=== PATIENT | female | born 2000 | race Caucasian/White ===

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

== ENCOUNTER 2021-12-31 20:25 | Outpatient (CLI) | payer OTHER, SELFPAY ==
[2021-12-31 20:41] VITALS: BMI 31.7
[2021-12-31 20:43] VITALS: PULSE 118; TEMP 36.8; O2SAT 98
[2021-12-31 20:49] VITALS: BP 120/73; PULSE 113; O2SAT 99
[2021-12-31 20:53] VITALS: BP 126/71; PULSE 112
[2021-12-31 20:54] VITALS: PULSE 115; O2SAT 99
[2021-12-31 20:59] VITALS: PULSE 114; O2SAT 99
--- NOTE | 2022-01-13 08:52 | OB.TRI.NOTE ---
HPI - General General Date of Admission: 12/31/21 Date of Service: 12/31/21 Chief Complaint: calf pain HPI Narrative IRON SOLIS, is a 21 F who presents Maternal Data Information Final DARINEL: [birth year] Gestational age: 35 1/7 PFSH PFSH Home Medications Albuterol Sulfate [Proair Hfa] 1 inhaler PO PRN PRN Asthma 08/13/14 [History Last Taken Unknown] dexamethasone 6 mg tablet (Decadron) 6 mg PO DAILY #5 tabs 07/21/21 [Rx Last Taken Unknown] Allergy/AdvReac Type Severity Reaction Status Date / Time No Known Allergies Allergy Verified 07/21/21 14:47 Family History (Updated 07/21/21 @ 14:48 by Clementina Patel, RN) Other Diabetes Heart disease Surgical History (Updated 07/21/21 @ 14:47 by Clementina Patel, RN) History of tonsillectomy Social History Smoking Status: Never smoker NST FHR Rate Baby A Baseline: 155 Variability:: Moderate Accelerations:: 15 x 15 Decelerations:: None NST Reactive:: Yes FHR Category:: Category I FHR Rate Baby B Uterine Activity:: no regular ctxs Assessment & Plan (1) Nulliparity: PLAN: Plan 35 week high risk primigravida calf pain, SOB. No obstetrical issues. Released to ED for evaluation of medical issues
== END 2021-12-31 21:10 | disposition home or self-care (01) ==
LOC: WPOUT 20:32 → WP 20:33
PROVIDERS: PCP Family Medicine; Visit Provider Obstetrics & Gynecology
DX: O26.893 Other specified pregnancy related conditions, third trimester (principal); M79.669 Pain in unspecified lower leg; Z3A.35 35 weeks gestation of pregnancy
CPT/HCPCS: 59025; 59050; 99218; G0378

== ENCOUNTER 2022-02-01 18:10 | Inpatient (IN) | payer OTHER, SELFPAY ==
[2022-02-01] VITALS (24 sets, daily range): BP systolic 119–143; BP diastolic 63–86; PULSE 98–138; TEMP 36.3–37.1; O2SAT 97–99; BMI 31.4
[2022-02-01 18:06] LABS: ROM Internal Control Test YES-OK TO RESULT pt. (Internal QC)
[2022-02-01 18:08] LABS: ROM Patient Test POSITIVE (Negative)
[2022-02-01 18:53] LABS: Absolute Lymphocyte Count 1.94 X10^3/uL (0.83-4.51); Absolute Neutrophil Count 12.8 X10^3/uL (2.0-7.7); Basophil# 0.04 X10^3/uL; Basophil% 0.2 % (0-1); Eosinophil# 0.19 X10^3/uL; Eosinophils% 1.2 % (0-5); Hematocrit 33.6 % (37-47); Hemoglobin 11.2 g/dL (12.0-15.0); Lymphocyte # 1.94 X10^3/ul (0.83-4.51); Mean Corp Hgb Conc 33.3 g/dL (32-36); Mean Corpuscular Hgb 28.1 pg (27.0-32.0); Mean Corpuscular Volume 84.2 fL (81-99); Mean Platelet Vol. 12.6 fl (6.2-12.0); Monocyte# 1.07 X10^3/uL; Monocyte% 6.6 % (0-10); NRBC Flagged by Analyzer 0 % (0-5); Neutrophil # 12.83 X10^3/uL (2.7-7.7); Neutrophil % 79.5 % (47-70); Platelet Count 222 K/mm3 (150-450); RBC Distribution Width CV 12.6 % (11.6-14.6); RBC Distribution Width SD 38.6 fl (35.1-43.9); Red Blood Count 3.99 M/mm3 (4.2-5.4); White Blood Count 16.2 K/mm3 (4.4-11.0)
[2022-02-01 19:11] LABS: ALB/GLOB Ratio 0.6 RATIO (0.9-2.4); AST(SGOT) 10 U/L (15-37); Alanine Aminotransfer ALT/SGPT 14 U/L (13-56); Albumin, Serum 2.6 g/dL (3.2-5.0); Alkaline Phosphatase 129 U/L (45-117); Anion Gap 8 (5-15); BUN 12 mg/dL (7-18); BUN/Creat Ratio 17.9 RATIO (10-20); Calcium,Total 9.1 mg/dL (8.5-10.1); Chloride 107 mmol/L (98-107); Creatinine, Serum 0.67 mg/dL (0.55-1.02); EST Glomerular Filtration Rate 118 mL/min (>60); Est Glom Filt Rate - Afr Amer 143 mL/min (>60); Estimated Creatinine Clearance 139.98 ml/min; Glucose 97 mg/dL (74-106); Potassium 3.8 mmol/L (3.5-5.1); Protein, Total 6.6 g/dL (6.4-8.2); Sodium Level 137 mmol/L (136-145); Uric Acid 6.2 mg/dL (2.6-6.0)
--- NOTE | 2022-02-01 21:01 | HP.PCM.OB_ITS ---
HPI - General General Date of Admission: 02/01/22 HPI Narrative IRON SOLIS, is a 21 F who presents at 39w5d with spontaneous rupture of membranes around 1600. Had 2 gushes of fluid and presented to labor and delivery. ROM plus positive and decision for admission for PROM. Denies vaginal bleeding. complicated by chlamydia infection during . Maternal Data Information Final DARINEL: 02[birth year] [facility] Medical History (Updated 02/01/22 @ 21:08 by Bhavya Lancaster CNM) Asthma Chlamydia infection affecting Home Medications Albuterol Sulfate [Proair Hfa] 1 inhaler PO PRN PRN Asthma 08/13/14 [History Last Taken 01/29/22 12:00] aspirin 81 mg tablet,delayed release 162 mg PO DAILY COVID in 02/01/22 [History Last Taken 02/01/22 10:30] [id number] 1 mg tablet 1 tab PO DAILY 02/01/22 [History Last Taken 02/01/22 10:30] Allergy/AdvReac Type Severity Reaction Status Date / Time No Known Allergies Allergy Verified 02/01/22 17:34 Family History Other Diabetes Heart disease Surgical History History of tonsillectomy Social History Smoking Status: Never smoker History Elective abortions Hx Para 0 Spontaneous abortions Hx # Term Pregnancies Ectopic pregnancies Hx # Pregnancies Multiple births # of living children NST FHR Rate Baby A Baseline: 145 Variability:: Moderate Accelerations:: 15 x 15 Decelerations:: None NST Reactive:: Yes FHR Category:: Category I Uterine Activity:: Irregular ROS Constitutional Constitutional: Reports systems reviewed and no addt'l complaints, except as documented; Denies headache(s) Eyes Eyes: Denies acute decrease in peripheral vision, blurry vision or change in vision ENT HEENT: Reports systems reviewed and no addt'l complaints, except as documented Cardiovascular Cardiovascular: Denies chest pain or dizziness Respiratory/Chest Respiratory/Chest: Denies cough, dyspnea, dyspnea on exertion, shortness of breath at rest or shortness of breath with exertion Gastrointestinal Gastrointestinal: Denies abdominal pain, diarrhea, nausea or vomiting Genitourinary Genitourinary: Denies abdominal discomfort or movement Musculoskeletal Musculoskeletal: Denies limited range of motion Integumentary Integumentary: Reports systems reviewed and no addt'l complaints, except as documented Neurologic Neurologic: Reports systems reviewed and no addt'l complaints, except as documented Psychiatric Psychiatric: Reports systems reviewed and no addt'l complaints, except as documented Endocrine Endocrinology: Reports systems reviewed and no addt'l complaints, except as documented Hematologic/Lymphatic Hematologic/Lymphatic: Reports systems reviewed and no addt'l complaints, except as documented Allergic/Immunologic Allergic/Immunologic: Reports systems reviewed and no addt'l complaints, except as documented Vital Signs Vital Signs Vital Signs: 02/01/22 17:11 02/01/22 17:11 02/01/22 17:12 Temperature Temperature Source Pulse Rate 121 H 138 H Blood Pressure 136/63 H BP Systolic 136 BP Diastolic 63 Pulse Ox 02/01/22 17:12 02/01/22 17:17 02/01/22 17:17 Temperature Temperature Source Pulse Rate 120 H Blood Pressure BP Systolic BP Diastolic Pulse Ox 98 97 02/01/22 17:11 02/01/22 17:11 02/01/22 17:11 Temperature 98.5 F Temperature Source Oral Pulse Rate Blood Pressure BP Systolic BP Diastolic Pulse Ox 98 02/01/22 17:22 02/01/22 17:22 02/01/22 17:27 Temperature Temperature Source Pulse Rate 122 H 128 H Blood Pressure BP Systolic BP Diastolic Pulse Ox 98 02/01/22 17:27 02/01/22 17:32 02/01/22 17:32 Temperature Temperature Source Pulse Rate 123 H Blood Pressure BP Systolic BP Diastolic Pulse Ox 99 98 02/01/22 17:37 02/01/22 17:37 02/01/22 17:42 Temperature Temperature Source Pulse Rate 118 H 121 H Blood Pressure BP Systolic BP Diastolic Pulse Ox 97 02/01/22 17:42 02/01/22 17:47 02/01/22 17:47 Temperature Temperature Source Pulse Rate 108 H Blood Pressure BP Systolic BP Diastolic Pulse Ox 97 98 02/01/22 17:52 02/01/22 17:52 02/01/22 17:57 Temperature Temperature Source Pulse Rate 111 H 113 H Blood Pressure BP Systolic BP Diastolic Pulse Ox 97 02/01/22 17:57 02/01/22 18:02 02/01/22 18:02 Temperature Temperature Source Pulse Rate 109 H Blood Pressure BP Systolic BP Diastolic Pulse Ox 98 98 02/01/22 18:07 02/01/22 18:07 02/01/22 18:12 Temperature Temperature Source Pulse Rate 116 H 109 H Blood Pressure BP Systolic BP Diastolic Pulse Ox 99 02/01/22 18:12 02/01/22 18:17 02/01/22 18:17 Temperature Temperature Source Pulse Rate 114 H Blood Pressure BP Systolic BP Diastolic Pulse Ox 99 97 02/01/22 18:22 02/01/22 18:22 02/01/22 19:16 Temperature Temperature Source Pulse Rate 111 H Blood Pressure 125/81 H BP Systolic 125 BP Diastolic 81 Pulse Ox 98 02/01/22 19:16 02/01/22 19:14 02/01/22 19:14 Temperature Temperature Source Temporal Pulse Rate 110 H 107 H Blood Pressure BP Systolic BP Diastolic Pulse Ox 02/01/22 19:14 02/01/22 20:50 02/01/22 20:50 Temperature 98.7 F Temperature Source Pulse Rate 116 H Blood Pressure 143/74 H BP Systolic 143 BP Diastolic 74 Pulse Ox 02/01/22 20:50 Temperature Temperature Source Pulse Rate Blood Pressure BP Systolic BP Diastolic Pulse Ox 98 Weight Weight: 212 lb 11.937 oz Body Mass Index (BMI) 31.4 Physical Exam Const alert and oriented x3 General Appearance: cooperative Orientation / Consciousness: awake, oriented to person, oriented to place and oriented to time Exam Limitations: no limitations HEENT normocephalic Head and Scalp: normal to inspection, normocephalic and atraumatic Face and Sinus: normal facial exam Eyes General Eye: normal appearance of both eyes Neck full ROM Chest Chest: symmetrical chest wall rise Resp normal respiratory effort and normal air movement Auscultation: clear to auscultation bilaterally Cardio regular rate, regular rhythm, S1 normal heart sound, S2 normal heart sound, no murmurs, no rub, no gallops and no clicks GI normal to inspection, nondistended, normoactive bowel sounds and non-tender appearance of the vagina normal Narrative: 2cm per nursing exam Bladder / Kidney Exam: no CVA tenderness Back/Spine normal ROM Extremity normal to inspection and full ROM Skin no rashes or lesions noted Neuro oriented x3, CN's II-XII intact bilaterally and moves all extremities Sensorium / Orientation: awake, alert and oriented to person Motor Exam: clonus absent Deep Tendon Reflexes: Rt Patellar (L4): 2+ and Lt Patellar (L4): 2+ Labs Labs Labs: Blood Type Pending Antibody Screen Pending Hct 33.6 % (37-47) L Hgb 11.2 g/dL (12.0-15.0) L GBS negative GC/CT negative 01/07/22 O positive Rubella Immune HBsAG negative HIV negative Hep C negative RPR negative Assessment & Plan (1) Nulliparity: (2) Chlamydia infection affecting : COMMENT: positive 05/2021, treated and negative 06/2021 (3) Asthma: COMMENT: exercise induced (4) PROM (premature rupture of membranes): (5) Term : PLAN: Plan 1) Admit to labor and delivery 2) Routine labs 3) ROM plus positive 4) IA 5) Offered active management vs. expectant management for PROM after risks vs. benefits. Patient desires expectant management at this time. 6) GBS negative 7) Planning epidural for pain management 8) notified of admission
[2022-02-01 21:39] LABS: Protein, Urine (Random) 111.9 mg/dL (<11.9); Protein:Creat Ratio 366 mg/g CRE (0-200)
[2022-02-01] MEDS: Lactated Ringers 1,000 ML 50 ML IV (22:05)
[2022-02-01] MEDS: 0.9% Saline Lock 10 ML Syringe IV (22:05)
[2022-02-01] MEDS: Oxytocin 30 units/NS 500 ml 30 UNITS/500 ML IV.SOLN IV (22:08)
[2022-02-01] MEDS: LACTATED RINGERS 500 ML 999 ML IV (22:14)
[2022-02-02] VITALS (36 sets, daily range): BP systolic 98–156; BP diastolic 56–86; PULSE 84–120; TEMP 36.1–37.8; O2SAT 88–100
[2022-02-02] MEDS: Mag Hydrox/Al Hydrox/Simeth 30 ML UDC PO (02:19)
[2022-02-02] MEDS: Lactated Ringers 1,000 ML 50 ML IV (08:27)
[2022-02-02] MEDS: LACTATED RINGERS 500 ML 999 ML IV (10:20)
[2022-02-02] MEDS: fentaNYL-bupivacaine (epidural) 100 ML BAG EPIDURAL ×2 (11:28→14:35)
--- NOTE | 2022-02-02 12:26 | PCM.PN.OB ---
Subjective Subjective Patient comfortable with epidural Objective Data Objective Data Vital Signs: Vital Signs Temp Pulse BP Pulse Ox 98.0 F 94 131/83 H 100 02/02/22 11:37 02/02/22 11:38 02/02/22 11:37 02/02/22 11:38 Weight: 212 lb 11.937 oz Body Mass Index (BMI) 31.4 Intake & Output: Intake and Output for Last 24 Hours 01/31/22 02/01/22 02/02/22 23:59 23:59 23:59 Intake Total 507.7 / 507.7 1080.47 / 1080.47 Output Total 100 / 100 250 / 250 Balance 407.7 / 407.7 830.47 / 830.47 Lab / Micro Data Result Diagrams: 02/01/22 18:35 02/01/22 18:35 Labs: Laboratory Results - last 24 hr 02/01/22 17:25: Vag Amniotic Fld Detect POSITIVE H 02/01/22 18:35: WBC 16.2 H, RBC 3.99 L, Hgb 11.2 L, Hct 33.6 L, MCV 84.2, MCH 28.1, MCHC 33.3, RDW Std Deviation 38.6, RDW Coeff of Aston 12.6, Plt Count 222, MPV 12.6 H, Immature Gran % (Auto) 0.500, Neut % (Auto) 79.5 H, Lymph % (Auto) 12.0 L, [place] % (Auto) 6.6, Eos % (Auto) 1.2, Baso % (Auto) 0.2, Absolute Neuts (auto) 12.8 H, Absolute Lymphs (auto) 1.94, Nucleated RBC % 0 02/01/22 18:35: Blood Type O POSITIVE, Antibody Screen NEGATIVE 02/01/22 18:35: Sodium 137, Potassium 3.8, Chloride 107, Carbon Dioxide 22.0, Anion Gap 8, BUN 12, Creatinine 0.67, Estim Creat Clear Calc 139.98, Est GFR (MDRD) Af Amer 143, Est GFR (MDRD) Non-Af 118, BUN/Creatinine Ratio 17.9, Glucose 97, Uric Acid 6.2 H, Calcium 9.1, Total Bilirubin 0.30, AST 10 L, ALT 14, Alkaline Phosphatase 129 H, Total Protein 6.6, Albumin 2.6 L, Globulin 4.0, Albumin/Globulin Ratio 0.6 L 02/01/22 19:55: U Random Total Protein 111.9 H, Urine Creatinine 306.00, Protein/Creatinin Ratio 366 H Micro: Microbiology 02/01/22 18:48 Nasal Secretion SARS-CoV-2 Antigen (Rapid) - Final Physical Exam Const alert, oriented x3 and no apparent distress Chest inspection of chest normal Narrative: cvx - 4/75/-1 NST FHR Rate Baby A Baseline: 125 Variability:: Moderate Accelerations:: 15 x 15 Decelerations:: Variable NST Reactive:: Yes Uterine Activity:: Q2-4 minutes Assessment & Plan (1) Preeclampsia: PLAN: BP's mild range when elevated Induction for SROM - continue pitocin Pain - comfortable with epidural
[2022-02-02] MEDS: Oxytocin 30 units/NS 500 ml 30 UNITS/500 ML IV.SOLN 999 UNITS IV (17:15)
[2022-02-02] MEDS: Acetaminophen 500 MG Tablet 1000 MG PO (18:20)
[2022-02-02] MEDS: miSOPROStol 200 MCG Tablet 1000 MCG RC (18:48)
--- NOTE | 2022-02-02 19:06 | EX.PCM.OBRPT ---
Maternal Data Information Final DARINEL: 02[birth year]22 Gestational age: 39&6 Vaginal Delivery Maternal Presentation Maternal Presentation: Spontaneous Rupture of Membranes and Medically Indicated Induction Type of Induction: Pitocin Medical Reason for Induction: Preeclampsia, eclampsia Operative Information Date of Procedure: 02/02/22 Pre-Operative Diagnosis: (1) SROM (2) Preeclampsia Post-Operative Diagnosis: Same Surgery / Procedure Performed: Spontaneous Vaginal Delivery Type of Anesthesia: Epidural Drain: Rader to straight drain Estimated Blood Loss: 600ml Findings Description of Procedure: Patient prepped & draped when C/C/+2. She pushed well to deliver the head. head gently guided to allow delivery of anterior and posterior shoulders. No excess traction placed on head. Body delivered and 3VC clamped & cut in delayed fashion. Placenta delivered with gentle traction and good uterine tone obtained. Presentation: SAPNA Amniotic Membrane Rupture Type: Spontaneous Amniotic Fluid Description: Clear Placental Delivery Description: Expressed Placenta Disposition: [facility] Specimen(s) Removed: Placenta Cord Vessel Description: 3 Vessels Cord Entanglement: None A Gender: Male (Krew) (1 minute): 8 (5 minute): 9 Delayed Cord Clamping: Yes Post Vaginal Delivery Medications Given After Delivery: IV Pitocin and - (Rectal cytotec) Episiotomy Description: None Laceration: None Complication Complications: None
[2022-02-02] MEDS: Ibuprofen 600 MG Tablet PO (21:47)
[2022-02-03 00:28] VITALS: BP 121/58; PULSE 106
[2022-02-03 05:00] VITALS: BP 113/77; PULSE 99; RESP 16; TEMP 36.9; O2SAT 99
[2022-02-03] MEDS: Acetaminophen 500 MG Tablet 1000 MG PO (05:41)
[2022-02-03 07:40] VITALS: BP 124/84; PULSE 103; RESP 18; TEMP 36.7; O2SAT 97
--- NOTE | 2022-02-03 08:56 | PCM.PN.OB ---
Subjective Subjective Patient is doing well. She denies chest pain, shortness of breath, leg pain. Lochia is normal. She denies headache, vision changes, upper abdominal pain, nausea, vomiting. She is ambulating and voiding without difficulty. She desires to go home today. Objective Data Objective Data Vital Signs: Vital Signs Temp Pulse Resp BP Pulse Ox O2 Del Method 98.0 F 103 H 18 124/84 H 97 Room Air 02/03/22 07:40 02/03/22 07:40 02/03/22 07:40 02/03/22 07:40 02/03/22 07:40 02/03/22 07:40 Oxygen Delivery Method Room Air Weight: 212 lb 11.937 oz Body Mass Index (BMI) 31.4 Intake & Output: Intake and Output for Last 24 Hours 02/01/22 02/02/22 02/03/22 23:59 23:59 23:59 Intake Total 507.7 / 507.7 2624.37 / 2624.37 Output Total 100 / 100 250 / 250 Balance 407.7 / 407.7 2374.37 / 2374.37 Lab / Micro Data Result Diagrams: 02/01/22 18:35 02/01/22 18:35 Micro: Microbiology 02/01/22 18:48 Nasal Secretion SARS-CoV-2 Antigen (Rapid) - Final Physical Exam Const alert and no apparent distress General Appearance: comfortable HEENT normocephalic Resp normal respiratory effort GI soft to palpation and non-tender GI Narrative: Fundus firm Extremity normal to inspection and no calf tenderness Neuro moves all extremities and no focal motor deficits Assessment & Plan (1) Preeclampsia: PLAN: Labs were normal on admission other than elevated protein creatinine ratio. Blood pressures have been normal. She has no symptoms of preeclampsia today. She has a blood pressure cuff at home. Discussed checking blood pressure twice daily and sending a blood pressure log into the office on Tuesday before the weekend. Discussed that she will need a blood pressure check in the office next week as well. Reviewed warning signs and symptoms of worsening preeclampsia, and reasons to call. (2) Vaginal delivery: PLAN: Doing well and desires discharge today. Discharge instructions reviewed.
--- NOTE | 2022-02-03 09:00 | DCINST_ITS ---
Discharge Instructions Diet Discharge Diet: No restrictions Activity Discharge Activity: May Shower May resume sexual activity in: 6 weeks Weight Bearing Status: Weight bearing as tolerated Lifting Restrictions: nothing heavier than baby Dressing / Incision Call your doctor if you observe: Fever of 101 or Higher, Coldness, Increased Pain, Numbness or Tingling, Change in Color, Inability to urinate, Inability to have a bowel movement, Using more than 1 pad per hour, Shortness of breath, Dizziness, Fainting spells, Swelling in the ankles, Chest pain, Increased palpitations (irregular heartbeat), Calf discomfort, Uncontrolled pain and - (Severe headache, visual changes, persistent upper abdominal pain, nausea/vomiting, blood pressure 160/110 or higher) Follow Up Care When: 1 week for blood pressure check 6 weeks for visit Test Results: Test results from this visit will be discussed in further detail at your follow- up appointment, if applicable. Discharge Plan Admission Admit Date/Time: 02/01/22 18:10 Primary Reason for Your Visit: delivery Attending Provider: Catherine Hand Primary Care Provider: Jian Hebert Instructions Patient Instructions: After a Vaginal , Understanding Preeclampsia Discharge Orders/Prescriptions Prescriptions: No Action Albuterol Sulfate [Proair Hfa] 8.5 GM Hfa.Aer.Ad 1 inhaler PO PRN PRN (Reason: Asthma) Label Comments: aspirin [Aspir-81] 81 mg Tablet,Delayed Release (Dr/Ec) 162 mg PO DAILY 1 mg Tablet 1 tab PO DAILY Referrals / Follow Up: Jian Hebert MD [Primary Care Provider] - Disposition Disposition (needs filled in before D/C Order can be placed): Home, Self Care
[2022-02-03 12:05] VITALS: BP 123/78; PULSE 96; RESP 16; O2SAT 100
[2022-02-03 16:46] VITALS: BP 106/77; PULSE 103; RESP 18; TEMP 37; O2SAT 96
[2022-02-03] MEDS: Senna/Docusate Sodium 1 Tablet PO (17:50)
[2022-02-03] MEDS: Ibuprofen 600 MG Tablet PO (17:50)
--- NOTE | 2022-02-03 18:16 | NURSING ---
Follow up appointment to be made in 1 week for pre-e with [facility] office.
== END 2022-02-03 19:40 | disposition home or self-care (01) | DRG 807 ==
LOC: WPOUT 18:12 → WP 18:12
PROVIDERS: Advanced Practice Midwife; Admitting Provider Obstetrics & Gynecology; PCP Family Medicine; Visit Provider Obstetrics & Gynecology
DX: O42.92 Full-term premature rupture of membranes, unspecified as to length of time between rupture and onset of labor (principal); Z37.0 Single live birth; J45.909 Unspecified asthma, uncomplicated; O99.52 Diseases of the respiratory system complicating childbirth; Z3A.39 39 weeks gestation of pregnancy; Z86.19 Personal history of other infectious and parasitic diseases; Z86.16 Personal history of COVID-19; O76 Abnormality in fetal heart rate and rhythm complicating labor and delivery; O14.04 Mild to moderate pre-eclampsia, complicating childbirth
CPT/HCPCS: 59025; 59050; 80053; 82570; 84112; 84156; 84550; 85025; 86850; 86900; 86901; 87811; 99218; J7120; A4216; G0378

== ENCOUNTER → 2022-07-22 | Outpatient (CLI) | payer OTHER, SELFPAY ==
[2022-07-22 12:18] LABS: Absolute Lymphocyte Count 2.34 X10^3/uL (0.83-4.51); Absolute Neutrophil Count 3.8 X10^3/uL (2.0-7.7); Basophil# 0.06 X10^3/uL; Basophil% 0.8 % (0-1); Eosinophil# 0.35 X10^3/uL; Eosinophils% 4.9 % (0-5); Hemoglobin 12.1 g/dL (12.0-15.0); Lymphocyte # 2.34 X10^3/ul (0.83-4.51); Lymphocyte % 32.7 % (19-41); Mean Corpuscular Hgb 24.8 pg (27.0-32.0); Mean Corpuscular Volume 80.1 fL (81-99); Mean Platelet Vol. 11.7 fl (6.2-12.0); Monocyte# 0.58 X10^3/uL; Monocyte% 8.1 % (0-10); NRBC Flagged by Analyzer 0 % (0-5); Neutrophil # 3.79 X10^3/uL (2.7-7.7); Neutrophil % 53.1 % (47-70); Platelet Count 333 K/mm3 (150-450); RBC Distribution Width CV 14.6 % (11.6-14.6); RBC Distribution Width SD 42.2 fl (35.1-43.9); Red Blood Count 4.87 M/mm3 (4.2-5.4); White Blood Count 7.2 K/mm3 (4.4-11.0)
[2022-07-22 12:52] LABS: ALB/GLOB Ratio 1.2 RATIO (0.9-2.4); AST(SGOT) 8 U/L (15-37); Alanine Aminotransfer ALT/SGPT 23 U/L (13-56); Alkaline Phosphatase 96 U/L (45-117); Anion Gap 6 (5-15); BUN 14 mg/dL (7-18); BUN/Creat Ratio 17.3 RATIO (10-20); Calcium,Total 9.2 mg/dL (8.5-10.1); Chloride 108 mmol/L (98-107); Creatinine, Serum 0.81 mg/dL (0.55-1.02); EST Glomerular Filtration Rate 95 mL/min (>60); Est Glom Filt Rate - Afr Amer 115 mL/min (>60); Globulin 3.2 g/dL (2.2-4.2); Glucose 79 mg/dL (74-106); Lipase 127 U/L (73-393); Potassium 4.6 mmol/L (3.5-5.1); Protein, Total 7.2 g/dL (6.4-8.2); Sodium Level 140 mmol/L (136-145)
== END | disposition home or self-care (01) ==
LOC: MFPLAB 09:51
PROVIDERS: PCP Family Medicine; Visit Provider Nurse Practitioner Family
DX: R10.11 Right upper quadrant pain (principal)
CPT/HCPCS: 36415; 80053; 83690; 85025

== ENCOUNTER → 2022-07-30 | Outpatient (CLI) | payer OTHER, SELFPAY ==
--- NOTE | 2022-07-30 07:40 | US_ITS ---
STUDY: ABDOMINAL ULTRASOUND - RIGHT UPPER QUADRANT REASON FOR VISIT: Female, 22 years old RUQ PAIN x 2 months TECHNIQUE: Ultrasound evaluation of the right upper quadrant was performed with real-time and static plunkett-scale imaging. TECHNICAL QUALITY: Adequate. COMPARISON: None. FINDINGS: Liver: The liver measures 17.5 cm. There is a mild degree of increased echogenicity consistent with mild fatty infiltration. The bile ducts are within normal limits. There is hepatic color flow. The direction of portal flow is hepatopetal. There is no demonstrated mass lesion. Gallbladder: Normal distended gallbladder. The gallbladder wall measures 2.4 mm. There is a negative sonographic Robin''s sign. There is no pericholecystic fluid. There are no gallstones. Common Bile Duct (C.B.D.): The common bile duct measures 3.8 mm. Pancreas: Normal size of the head, body and tail of the pancreas. There is normal echogenicity of the pancreas. There is no demonstrated pancreatic mass or cyst. Right Kidney: Normal size of the right kidney. The right kidney measures 11.6 cm x 5 cm x 4.3 cm. Normal renal cortex. The right cortex measures cm. There is no demonstrated renal mass or cyst. There is no right hydronephrosis. US/Abdomen Limited IMPRESSION: Borderline hepatomegaly and a mild degree of fatty infiltration of the liver. Electronically Signed: Bob Saldana MD at 10:05 [facility] ,
== END | disposition home or self-care (01) ==
LOC: US 07:38
PROVIDERS: PCP Family Medicine; Referring Provider Nurse Practitioner Family; Visit Provider Nurse Practitioner Family
DX: K76.0 Fatty (change of) liver, not elsewhere classified (principal); R16.0 Hepatomegaly, not elsewhere classified
CPT/HCPCS: 76705

== ENCOUNTER 2023-05-21 03:24 | Emergency (ER) | payer OTHER, SELFPAY ==
[2023-05-21 03:25] VITALS: BP 170/93; PULSE 117; RESP 18; TEMP 36.6; O2SAT 98; BMI 32.7
--- NOTE | 2023-05-21 03:53 | EDS_ITS ---
HPI History of Present Illness Chief Complaint: Sore Throat Informant: patient Narrative Narrative: Patient is a 23-year-old female with past medical history of asthma and previous tonsillectomy. She states that her child there has been sick at home. She reports for the past 5 days she has had mild congestion with sore throat. She went to an urgent care where she states she was swabbed for strep and this was negative. She reports she is on 40 mg of prednisone daily and despite taking this has not had any improvement of her sore throat. She states that this evening she is having difficulty sleeping secondary to the persistent pain and therefore comes in for evaluation [facility] Medical History Anxiety Asthma Chlamydia infection affecting Preeclampsia Vaginal delivery Home Medications Albuterol Sulfate [Proair Hfa] 1 inhaler PO PRN PRN Asthma 08/13/14 [History Last Taken 01/29/22 12:00] azelastine 137 mcg (0.1 %) nasal spray aerosol 2 spray intranasal BID #30 mL 05/21/23 [Rx Last Taken Unknown] fluoxetine 10 mg tablet 10 mg PO DAILY 05/21/23 [History Last Taken Unknown] hydroxyzine HCl 25 mg tablet 25 mg PO Q8H PRN anxiety 05/21/23 [History Last Taken Unknown] levonorgestrel-ethinyl estradiol 0.1 mg-20 mcg tablet (Aviane) 1 tab PO DAILY 05/21/23 [History Last Taken Unknown] lidocaine HCl 2 % mucosal solution (Lidocaine Viscous) 15 ml PO 4X/DAY PRN PRN mouth pain 5 days #300 mL 05/21/23 [Rx Last Taken Unknown] oxycodone-acetaminophen 5 mg-325 mg tablet (Percocet) 1 tab PO Q6H PRN pain 3 days #12 tabs 05/21/23 [Rx Last Taken Unknown] prednisone 20 mg tablet 20 mg PO DAILY 05/21/23 [History Last Taken Unknown] Allergy/AdvReac Type Severity Reaction Status Date / Time No Known Allergies Allergy Verified 05/21/23 03:27 Family History Other Diabetes Heart disease Surgical History History of tonsillectomy Social History Smoking Status: Never smoker ROS ROS ED Constitutional Constitutional ED: Reports chills, fever(s) and subjective ENT ENT ED: Reports rhinorrhea and sore throat Cardiovascular Cardiovascular: Denies chest pain Respiratory/Chest Respiratory/Chest: Reports cough; Denies dyspnea Gastrointestinal Gastrointestinal: Denies abdominal pain, diarrhea, nausea or vomiting Genitourinary Genitourinary ED: Denies dysuria Musculoskeletal Musculoskeletal: Reports myalgias Integumentary Denies rash Neurologic Neurologic: Denies headache(s) Hematologic/Lymphatic Hematologic/Lymphatic: Denies easy bleeding or easy bruising EXAM Physical Exam Const Vital Signs: 05/21/23 03:25 Temperature 97.9 F Temperature Source Temporal Pulse Rate 117 H Respiratory Rate 18 Blood Pressure 170/93 H Blood Pressure Mean 118 Pulse Ox 98 Positive well nourished and well developed General Appearance ED: well developed HEENT Reports moist mucous membranes HEENT Narrative: There is mild erythema in the posterior pharynx. Otherwise no hard palate petechiae no trismus no change in voice or difficulty with secretions. Uvula is midline and not swollen. Eyes PERRL and EOMs intact bilaterally General Eye ED: Negative for scleral icterus Neck supple Neck Narrative: Patient is tender anterior cervical lymphadenopathy noted without overlying erythema or warmth No brawny edema noted in the submental space Patient can move her neck in flexion extension and rotation without pain Lymph Lymphatic Narrative: Tender swollen anterior cervical lymphadenopathy as documented above Resp normal respiratory effort and clear to auscultation bilaterally Cardio regular rate and regular rhythm Extremity normal to inspection Neuro oriented x3, CN's II-XII intact bilaterally and no sensory deficits noted Sensorium / Orientation: alert Motor Exam: strength 5/5 throughout Psych mental status grossly normal Skin no rashes or lesions noted MDM MDM MDM Narrative Medical decision making narrative: Patient presented to the ER afebrile. Her tonsils have been previously removed and she reports congestion and sore throat. Differential diagnosis is for bacterial pharyngitis/strep throat versus viral pharyngitis versus epiglottitis versus retropharyngeal or peritonsillar abscess. As the patient's tonsils have been removed concern for bacterial pharyngitis and a peritonsillar abscess is low. He does not have any change in voice or difficulty with secretions and therefore my concern for epiglottitis is low as well. Also as patient does not have any pain with rotation of her neck there is no overlying erythema or warmth or true fever concern for a retropharyngeal abscess is low. As patient is already had a strep swab obtained do not feel need to repeat this. At this time her symptoms and exam are most consistent with a viral pharyngitis. As steroids are not helping symptoms I will provide nasal spray viscous lidocaine and pain medication. Even though patient's lymph nodes are edematous I feel this is reactionary/inflammatory and not secondary to them becoming necrotic. Therefore there is no need for a neck CT or antibiotic. I discussed with patient potential soft tissue neck x-ray or CT scan to ensure these findings but she states that as my concern is low she does not want the testing obtained. Therefore should be given symptomatic care and is safe for discharge History & Record Review Discussion w/independent historian: Patient Discharge Plan Triage Chief Complaint: Sore Throat ED Provider: Fabrizio Remy Dx/Rx/DC Orders Clinical Impression: Acute pharyngitis, Anterior cervical lymphadenopathy, Asthma Instructions: Lymphadenopathy, ED Pharyngitis, Viral Prescriptions: New azelastine 137 mcg (0.1 %) aerosol,spray 2 spray intranasal BID Qty: 30 0RF Rx Instructions: administer into each nostril oxycodone-acetaminophen [Percocet] 5-325 mg tablet 1 tab PO Q6H PRN (Reason: pain) 3 Days Qty: 12 0RF lidocaine HCl [Lidocaine Viscous] 2 % solution 15 ml PO 4X/DAY PRN PRN (Reason: mouth pain) 5 Days Qty: 300 0RF No Action Albuterol Sulfate [Proair Hfa] 8.5 GM Hfa.Aer.Ad 1 inhaler PO PRN PRN (Reason: Asthma) Patient Comments: fluoxetine 10 mg tablet 10 mg PO DAILY hydroxyzine HCl 25 mg tablet 25 mg PO Q8H PRN (Reason: anxiety) levonorgestrel-ethinyl estrad [Aviane] 0.1-20 mg-mcg tablet 1 tab PO DAILY prednisone 20 mg tablet 20 mg PO DAILY Patient Comments: last day 05/21 Primary Care Provider: Jian Hebert Referrals: Jian Hebert MD [Primary Care Provider] - Activity Restrictions/Additional Instructions: Your history and physical exam does indicate that this is a viral infection which correlates with the urgent care is negative strep swab. Sore throat from a viral infection will typically last 7 to 10 days where the congestion and drainage will go approximately 2 weeks. Finish out the steroids that you were given by the urgent care but add the prescribed medication from the ER for improved symptom control. If you have any further concerns or worsening of symptoms despite taking these medications please return for repeat evaluation Disposition Disposition: Home, Self Care
[2023-05-21] MEDS: Oxycodone/Apap 5/325 Tablet PO (04:02)
== END 2023-05-21 04:09 | disposition home or self-care (01) ==
PROVIDERS: Emergency Provider Emergency Medicine; PCP Family Medicine; Visit Provider Emergency Medicine
DX: J02.9 Acute pharyngitis, unspecified (principal); J45.909 Unspecified asthma, uncomplicated; F41.9 Anxiety disorder, unspecified; Z79.899 Other long term (current) drug therapy; Z79.3 Long term (current) use of hormonal contraceptives; R59.9 Enlarged lymph nodes, unspecified
CPT/HCPCS: 99283

== ENCOUNTER 2023-09-18 18:58 | Emergency (ER) | payer OTHER, SELFPAY ==
[2023-09-18 18:59] VITALS: BP 149/75; PULSE 141; RESP 16; TEMP 36.7; O2SAT 99; BMI 32.2
--- NOTE | 2023-09-18 19:05 | EDS_ITS ---
HPI History of Present Illness Chief Complaint: Nausea/Vomiting/Diarrhea [facility] Medical History Anxiety Asthma Chlamydia infection affecting Preeclampsia Vaginal delivery Home Medications Albuterol Sulfate [Proair Hfa] 1 inhaler PO PRN PRN Asthma 08/13/14 [History Last Taken 01/29/22 12:00] azelastine 137 mcg (0.1 %) nasal spray aerosol 2 spray intranasal BID #30 mL 05/21/23 [Rx Last Taken Unknown] fluoxetine 10 mg tablet 10 mg PO DAILY 05/21/23 [History Last Taken Unknown] hydroxyzine HCl 25 mg tablet 25 mg PO Q8H PRN anxiety 05/21/23 [History Last Taken Unknown] levonorgestrel-ethinyl estradiol 0.1 mg-20 mcg tablet (Aviane) 1 tab PO DAILY 05/21/23 [History Last Taken Unknown] lidocaine HCl 2 % mucosal solution (Lidocaine Viscous) 15 ml PO 4X/DAY PRN PRN mouth pain 5 days #300 mL 05/21/23 [Rx Last Taken Unknown] oxycodone-acetaminophen 5 mg-325 mg tablet (Percocet) 1 tab PO Q6H PRN pain 3 days #12 tabs 05/21/23 [Rx Last Taken Unknown] prednisone 20 mg tablet 20 mg PO DAILY 05/21/23 [History Last Taken Unknown] ondansetron 4 mg disintegrating tablet 4 mg PO Q8H PRN PRN Nausea #10 tabs 09/18/23 [Rx Last Taken Unknown] Allergy/AdvReac Type Severity Reaction Status Date / Time No Known Allergies Allergy Verified 05/21/23 03:27 Family History Other Diabetes Heart disease Surgical History History of tonsillectomy Social History Smoking Status: Never smoker EXAM Physical Exam Const Vital Signs: 09/18/23 18:59 09/18/23 20:01 09/18/23 21:00 Temperature 98.1 F 101.9 F H 99.6 F H Temperature Source Temporal Oral Oral Pulse Rate 141 H 98 97 Respiratory Rate 16 18 18 Blood Pressure 149/75 H 136/87 H 126/87 H Blood Pressure Mean 99 103 100 Pulse Ox 99 98 97 Oxygen Delivery Method Room Air Room Air Room Air 09/18/23 22:00 Temperature 99 F Temperature Source Oral Pulse Rate 91 Respiratory Rate 18 Blood Pressure 125/86 H Blood Pressure Mean 99 Pulse Ox 98 Oxygen Delivery Method Room Air [facility] [place] Narrative Medical decision making narrative: HISTORY OF PRESENT ILLNESS: 23-year-old female presents with nausea and diarrhea. She states This began at 5 PM yesterday. She further states she has no cough, sore throat. Notes no blood in her stool. No recent travel, no hospitalizations. Denies history of abdominal surgeries. Denies vaginal bleeding or discharge. Denies any increased frequency or urgency of urination. Denies any chest pain or shortness of breath. REVIEW OF SYSTEMS: Pertinent positives: Nausea vomiting and diarrhea Pertinent negatives: Chest pain, shortness of breath, abdominal pain PHYSICAL EXAM: Nursing triage notes reviewed, Vital signs reviewed Constitutional: please see mdm HENT: MMM Eyes: Pupils equal round and reactive to light, Extraocular muscles intact Neck: No stridor, no JVD, full neck ROM Lungs: Clear to auscultation, No wheezing or rales. No increased work of breathing, no conversational dyspnea, no accessory muscle use, no nasal flaring. No respiratory distress noted Heart: Regular rate and rhythm, No murmurs, No rubs and No gallops, 2+ distal pulses (radial, femoral, posterior tibial) in all extremities Abdomen: Soft, there is no tenderness, rigidity, rebound or guarding, no obvious peritoneal signs, no palpable pulsatile abdominal masses, no auscultated abdominal bruit : No CVAT Extremities: No edema Neuro: No focal neurological deficits, cranial nerves II through XII intact, 5/5 strength in all extremities. Intact sensation to light touch in all extremities, 2+ reflexes bilateral patella tendons. Normal gait. No ataxia. Skin: No rash or lesions noted MEDICAL DECISION MAKING: Chief Complaint: Nausea vomiting and diarrhea External records reviewed: Imaging reviewed: Abdominal ultrasound from July 2022 showsBorderline hepatomegaly with mild degree of fatty infiltration of the liver. No evidence of acute cholecystitis Factors affecting care: Anxiety Social determinants of health: none History obtained from others: Patient's fianc? Consults: none [facility] Narrative: Patient was initially tachycardic otherwise hemodynamically stable and afebrile. Exam was unremarkable. Heart rate improved without significant intervention from 141-110 I considered the following differential diagnosis: Dehydration, electrolyte disturbance, , UTI, pyelonephritis, flu, COVID, RSV I obtained a broad lab and imaging workup to further elucidate the etiology of the patient complaints. ALL IMAGES (IF OBTAINED) HAVE BEEN PERSONALLY REVIEWED AND INTERPRETED BY MYSELF. Urinalysis shows no evidence of urinary inflammation suggestive of UTI CBC without leukocytosis, severe anemia, no thrombocytopenia. EKG with sinus tachycardia with rate of 110, normal axis, normal intervals, no STEMI BMP without evidence of significant electrolyte abnormalities, no anion gap, no acute kidney injury. Lipase is wnl indicating no pancreatic inflammation. COVID, flu and RSV are negative The synthesis of the patient's history, physical exam, labs suggest no acute life-limiting etiology. Patient is likely suffering from a viral gastroenteritis. She was able to tolerate p.o. here. Was given a prescription for Zofran and instructions to return if symptoms change or worsend. The patient and/or family, caregivers express understanding. The patient and/or family, caregivers agrees with the plan. Shared decision making: I will have a discussion with the patient and or visitors regarding risk/benefits of further testing or admission. They will be made aware of of the risk/benefits inherent in this decision they will be given the opportunity to voice understanding. Total critical care time today provided was at least 0 minutes. This excludes separately billable procedures. Critical care time (if documented) is secondary to the patient having high probability of clinically significant/life threatening deterioration in the patient's condition which required my urgent i ntervention. Impression: 1. Nausea vomiting and diarrhea 2. Fever . Dispo: Discharge home This note was generated with [employer] dictation software. It may contain incorrect words, spelling, and punctuation that were not noted in review of the chart prior to signing. Lab Data Labs: Laboratory Results - last 24 hr 09/18/23 09/18/23 20:10 21:31 WBC 7.4 RBC 4.97 Hgb 13.6 Hct 41.9 MCV 84.3 MCH 27.4 MCHC 32.5 RDW Std Deviation 39.9 RDW Coeff of Aston 13.0 Plt Count 257 MPV 11.2 Immature Gran % (Auto) 0.500 Neut % (Auto) 80.6 H Lymph % (Auto) 10.5 L Mcmullen % (Auto) 7.7 Eos % (Auto) 0.3 Baso % (Auto) 0.4 Absolute Neuts (auto) 6.0 Absolute Lymphs (auto) 0.78 L Nucleated RBC % 0 Sodium 140 Potassium 4.0 Chloride 111 H Carbon Dioxide 22.0 Anion Gap 7 BUN 15 Creatinine 0.74 Estim Creat Clear Calc 144.59 Est GFR (MDRD) Af Amer 127 Est GFR (MDRD) Non-Af 105 BUN/Creatinine Ratio 20.4 H Glucose 96 Calcium 8.6 Total Bilirubin 0.60 Direct Bilirubin 0.16 AST 20 ALT 15 Alkaline Phosphatase 85 Total Protein 6.8 Albumin 3.5 Globulin 3.3 Lipase 18 Urine Color Yellow Urine Clarity Clear Urine pH 5.0 Ur Specific [place] 1.020 Urine Protein 30 H Urine Glucose (UA) Normal Urine Ketones 150 A* Urine Occult Blood 250 H Urine Nitrite Negative Urine Bilirubin 1 H Urine Urobilinogen 1 H Ur Leukocyte Esterase 25 H Urine RBC 0-5 SEEN Urine WBC 0-5 SEEN Ur Squamous Epith Cells 0-5 SEEN Urine Bacteria 0 SEEN Urine Mucus 1+ Urine Test Negative Discharge Plan Triage Chief Complaint: Nausea/Vomiting/Diarrhea ED Provider: Robin Perea Dx/Rx/DC Orders Clinical Impression: Nausea, vomiting, and diarrhea Instructions: ED Vomiting (Adult) Prescriptions: New ondansetron 4 mg tablet,disintegrating 4 mg PO Q8H PRN PRN (Reason: Nausea) Qty: 10 0RF No Action Albuterol Sulfate [Proair Hfa] 8.5 GM Hfa.Aer.Ad 1 inhaler PO PRN PRN (Reason: Asthma) Patient Comments: fluoxetine 10 mg tablet 10 mg PO DAILY hydroxyzine HCl 25 mg tablet 25 mg PO Q8H PRN (Reason: anxiety) levonorgestrel-ethinyl estrad [Aviane] 0.1-20 mg-mcg tablet 1 tab PO DAILY prednisone 20 mg tablet 20 mg PO DAILY Patient Comments: last day 05/21 azelastine 137 mcg (0.1 %) aerosol,spray 2 spray intranasal BID Qty: 30 0RF Rx Instructions: administer into each nostril oxycodone-acetaminophen [Percocet] 5-325 mg tablet 1 tab PO Q6H PRN (Reason: pain) 3 Days Qty: 12 0RF lidocaine HCl [Lidocaine Viscous] 2 % solution 15 ml PO 4X/DAY PRN PRN (Reason: mouth pain) 5 Days Qty: 300 0RF Stand Alone Forms: ED Work / School Excuse Primary Care Provider: Jian Hebert Referrals: Jian Hebert MD [Primary Care Provider] - Activity Restrictions/Additional Instructions: Thank you for trusting us with your care today! Please take Tylenol (2 pills, 650 mg), ibuprofen (2 pills, 400 mg) every 6 hours as needed for pain and fever control. Please take Zofran as needed for nausea and vomiting. Please return to the emergency department if your symptoms change or worsen. Please follow with your primary care physician for further outpatient evaluation and management. Disposition Disposition: Home, Self Care
--- OUTSIDE RECORDS SUMMARY | 2023-09-18 19:43 | XMS RPT_ITS | CCD ---
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 Name Role Phone DEONNA WELLER Attending Unavailable DRAGAN CHAUDHARI Referring Unavailable VANDANA HUYNH Primary Care Unavailabl e Unavailable Primary Care Provider Unavailabl e Unavailable Primary Care Provider UnavailRAIN Mendez Attending Unavail able RAIN DAVIES Attending Unavail Vandana Carvajal MD Primary Care Provider VANDANA HUYNH Primary Care UnavailMALU Bennett Attending Unavailable MALU BELTRÁN Attending Unavailable JENNIFER DUGAN Referring Unavailable Allergies Allergy Classification Reported Allergen(s) Allergy Type Date of Onset Reaction(s) Facility (20 sources) house dust allergenic extract; Translations: [HOUSE DUST] Drug Allergy 10-22-2021 Other: See Comments [facility] Work Phone: Medications Current Medications Medication Drug Class(es) Dates Sig (Normalized) Sig (Original) cephalexin 500 mg oral capsule (2 sources) Cephalosporin Antibacterial Start: 03-11-2022 End: 03-25-2022 take 1 capsule by mouth four times daily cephALEXin (KEFLEX) 500 mg capsule Take 1 capsule by mouth four times daily for 14 days. 56 capsule 0 03/11/2022 03/25/2022 Active Completed/Discontinued Medications Medication Drug Class(es) Dates Sig (Normalized) Sig (Original) Acetaminophen (20 sources) acetaminophen (T YLENOL EXTRA STRENGTH ORAL) Take by mouth. 0 Active Problems Active Problems Problem Classification Problem Date Documented Da te Episodic/Chronic Nonmalignant breast conditions (1 source) Acute mastitis; Translations: [Mastitis without abscess] Episodic Other and delivery including normal (20 sources) ; Translations: [Encounter for supervision of normal , unspecified, unspecified trimester] Onset: 10-22-2021 Episodic Other upper respiratory infections (3 sources) Acute upper respiratory infection; Translations: [Acute upper respiratory infection, unspecified] Episodic Residual codes; unclassified (1 source) Gestation period, 31 weeks; Translations: [31 weeks gestation of ] Episodic Residual codes; unclassified (1 source) Gestation period, 35 weeks; Translations: [35 weeks gestation of ] Episodic Residual codes; unclassified (1 source) Gestation period, 36 weeks; Translations: [36 weeks gestation of ] Episodic Residual codes; unclassified (1 source) Gestation period, 37 weeks; Translations: [37 weeks gestation of ] Episodic Residual codes; unclassified (1 source) Gestation period, 38 weeks; Translations: [38 weeks gestation of ] Episodic Residual codes; unclassified (1 source) Gestation period, 39 weeks; Translations: [39 weeks gestation of ] Episodic Unclassified (1 source) [facility] Temporary Receptionist Review Required; Translations: [[facility] Temporary Receptionist Review Required] Onset: 08-17-2023 Past or Other Problems Problem Classification Problem Date Documented Date Episodic/Chronic Contraceptive and procreative management (11 sources) Patient encounter status; Translations: [Encounter for initial prescription of intrauterine contraceptive device] Onset: 11-01-2022 Episodic Immunizations and screening for infectious disease (1 source) Encounter for screening for human papillomavirus (HPV); Translations: [Encounter for screening for human papillomavirus (HPV)] Onset: 11-01-2022 Episodic Other complications of (14 sources) Chlamydia trachomatis infection in ; Translations: [Other infections with a predominantly sexual mode of transmission complicating , unspecified trimester] Onset: 10-22-2021 Episodic Other screening for suspected conditions (not mental disorders or infectious disease) (2 sources) Cancer cervix screening status; Translations: [Encounter for screening for malignant neoplasm of cervix] Onset: 11-01-2022 Episodic Residual codes; unclassified (14 sources) FH: Thrombosis; Translations: [Family history of ischemic heart disease and other diseases of the circulatory system] Onset: 10-22-2021 Episodic Unclassified (1 source) [facility] Temporary Receptionist Review Required; Translations: [[facility] Temporary Receptionist Review Required] Onset: 08-17-2023 Results Test Name Value Interpretation Reference Range Facil ity Vital Signs Date Time Vital Sign Value Performing Clinician Tha paulino 08-24-2023 11:27-0500 Body temperature 100.8 [degF] Krislyn Aberegg PA Work Phone: [facility] 08-24-2023 11:27-0500 Body weight 96.16 kg Krislyn Aberegg PA Work Phone: [facility] 08-24-2023 11:27-0500 Diastolic blood pressure 76 mm[Hg] Krislyn Aberegg PA Work Phone: [facility] 08-24-2023 11:27-0500 Heart rate 131 /min Krislyn Aberegg PA Work Phone: [facility] 08-24-2023 11:27-0500 Respiratory rate 18 /min Krislyn Aberegg PA Work Phone: [facility] 08-24-2023 11:27-0500 SaO2% (BldA) [Mass fraction] 97 % Krislyn Aberegg PA Work Phone: [facility] 08-24-2023 11:27-0500 Systolic blood pressure 110 mm[Hg] Krislyn Aberegg PA Work Phone: [facility] 05-17-2023 09:34-0400 Body temperature 100 [degF] Moise Chavez REINSTATEMENT CLERK.[employer]TERATIONS WORKROOM CLERK Work Phone: [facility] 05-17-2023 09:34-0400 Body weight 94.8 kg Moise Chavez REINSTATEMENT CLERK.[employer]TERATIONS WORKROOM CLERK Work Phone: [facility] 05-17-2023 09:34-0400 Diastolic blood pressure 80 mm[Hg] Moise Chavez REINSTATEMENT CLERK.[employer]TERATIONS WORKROOM CLERK Work Phone: [facility] 05-17-2023 09:34-0400 Heart rate 122 /min Moise Chavez REINSTATEMENT CLERK.ALTERATIONS WORKROOM CLERK Work Phone: [facility] 05-17-2023 09:34-0400 Respiratory rate 18 /min Moise Chavez REINSTATEMENT CLERK.ALTERATIONS WORKROOM CLERK Work Phone: [facility] 05-17-2023 09:34-0400 SaO2% (BldA) [Mass fraction] 98 % Moise Byrne REINSTATEMENT CLERK.ALTERATIONS WORKROOM CLERK Work Phone: [facility] 05-17-2023 09:34-0400 Systolic blood pressure 124 mm[Hg] Moise Byrne REINSTATEMENT CLERK.ALTERATIONS WORKROOM CLERK Work Phone: [facility] 03-28-2023 14:32-0400 Body weight 95.71 kg Malu Leigh Ann REINSTATEMENT CLERK.ALTERATIONS WORKROOM CLERK Work Phone: [facility] 03-28-2023 14:32-0400 Diastolic blood pressure 66 mm[Hg] Malu Ratcliff REINSTATEMENT CLERK.ALTERATIONS WORKROOM CLERK Work Phone: [facility] 03-28-2023 14:32-0400 Systolic blood pressure 112 mm[Hg] Malu Leigh Ann REINSTATEMENT CLERK.[employer]ATIONS WORKROOM CLERK Work Phone: [facility] 11-01-2022 11:26-0400 Body height 171.5 cm Malu Leigh Ann REINSTATEMENT CLERK.[employer]ATIONS WORKROOM CLERK Work Phone: [facility] 11-01-2022 11:26-0400 Body weight 95.35 kg Malu Ratcliff REINSTATEMENT CLERK.[employer]ATIONS WORKROOM CLERK Work Phone: [facility] 11-01-2022 11:26-0400 Diastolic blood pressure 70 mm[Hg] Malu Ratcliff REINSTATEMENT CLERK.[employer]ATIONS WORKROOM CLERK Work Phone: [facility] 11-01-2022 11:26-0400 Systolic blood pressure 110 mm[Hg] Malu Leigh Ann REINSTATEMENT CLERK.ALTERATIONS WORKROOM CLERK Work Phone: [facility] 09-23-2022 15:35-0500 Body weight 93.71 kg Nurse Wstr Work Phone: [facility] 09-23-2022 15:35-0500 Diastolic blood pressure 70 mm[Hg] Nurse Wstr Work Phone: [facility] 09-23-2022 15:35-0500 Systolic blood pressure 140 mm[Hg] Nurse Wstr Work Phone: [facility] 08-19-2022 11:47-0500 Body temperature 98.6 [degF] Moise Byrne REINSTATEMENT CLERK.ALTERATIONS WORKROOM CLERK Work Phone: [facility] 08-19-2022 11:47-0500 Body weight 92.9 kg Moise Byrne REINSTATEMENT CLERK.ALTERATIONS WORKROOM CLERK Work Phone: [facility] 08-19-2022 11:47-0500 Diastolic blood pressure 74 mm[Hg] Moise King REINSTATEMENT CLERK.ALTERATIONS WORKROOM CLERK Work Phone: [facility] 08-19-2022 11:47-0500 Heart rate 108 /min Moise Byrne REINSTATEMENT CLERK.[employer]ATIONS WORKROOM CLERK Work Phone: [facility] 08-19-2022 11:47-0500 Respiratory rate 18 /min Moise Byrne REINSTATEMENT CLERK.AL[employer]ATIONS WORKROOM CLERK Work Phone: [facility] 08-19-2022 11:47-0500 SaO2% (BldA) [Mass fraction] 100 % Moise King REINSTATEMENT CLERK.AL[employer]ATIONS WORKROOM CLERK Work Phone: [facility] 08-19-2022 11:47-0500 Systolic blood pressure 128 mm[Hg] Moise Byrne REINSTATEMENT CLERK.ALTERATIONS WORKROOM CLERK Work Phone: [facility] 06-24-2022 09:58-0500 Body weight 92.17 kg Nurse Wstr Work Phone: [facility] 06-24-2022 09:58-0500 Diastolic blood pressure 68 mm[Hg] Nurse Wstr Work Phone: [facility] 06-24-2022 09:58-0500 Systolic blood pressure 102 mm[Hg] Nurse Wstr Work Phone: [facility] 04-02-2022 10:02-0400 Body weight 90.72 kg Nurse Wstr Work Phone: [facility] 04-02-2022 10:02-0400 Diastolic blood pressure 78 mm[Hg] Nurse Wstr Work Phone: [facility] 04-02-2022 10:02-0400 Systolic blood pressure 118 mm[Hg] Nurse Wstr Work Phone: [facility] 04-01-2022 15:58-0400 Body weight 91.63 kg Candice Valle REINSTATEMENT CLERK.ALTERATIONS WORKROOM CLERK Work Phone: [facility] 04-01-2022 15:58-0400 Diastolic blood pressure 78 mm[Hg] Candice Valle REINSTATEMENT CLERK.ALTERATIONS WORKROOM CLERK Work Phone: [facility] 04-01-2022 15:58-0400 Systolic blood pressure 122 mm[Hg] Candice Valle REINSTATEMENT CLERK.ALTERATIONS WORKROOM CLERK Work Phone: [facility] 03-17-2022 15:42-0400 Body weight 89.36 kg Deana Padgett MD Work Phone: [facility] 03-17-2022 15:42-0400 Diastolic blood pressure 76 mm[Hg] Deana Padgett MD Work Phone: [facility] 03-17-2022 15:42-0400 Systolic blood pressure 120 mm[Hg] Deana Padgett MD Work Phone: [facility] 03-11-2022 11:30-0400 Body temperature 101.3 [degF] Catherine Hand MD Work Phone: [facility] 03-11-2022 11:30-0400 Body weight 90.08 kg Catherine Hand MD Work Phone: [facility] 03-11-2022 11:30-0400 Diastolic blood pressure 72 mm[Hg] Catherine Hand MD Work Phone: [facility] 03-11-2022 11:30-0400 Systolic blood pressure 118 mm[Hg] Catherine Hand MD Work Phone: [facility] 02-08-2022 09:44-0400 Body weight 89.81 kg Merlene Rangel MD Work Phone: [facility] 02-08-2022 09:44-0400 Diastolic blood pressure 84 mm[Hg] Merlene Rangel MD Work Phone: [facility] 02-08-2022 09:44-0400 Systolic blood pressure 132 mm[Hg] Merlene Rangel MD Work Phone: [facility] 01-29-2022 14:45-0400 Body weight 97.07 kg Deana Padgett MD Work Phone: [facility] 01-29-2022 14:45-0400 Diastolic blood pressure 76 mm[Hg] Deana Padgett MD Work Phone: [facility] 01-29-2022 14:45-0400 Systolic blood pressure 124 mm[Hg] Deana Padgett MD Work Phone: [facility] 01-22-2022 15:39-0400 Body weight 96.16 kg Deana Padgett MD Work Phone: [facility] 01-22-2022 15:39-0400 Diastolic blood pressure 78 mm[Hg] Deana Padgett MD Work Phone: [facility] 01-22-2022 15:39-0400 Systolic blood pressure 130 mm[Hg] Deana Padgett MD Work Phone: [facility] 01-15-2022 13:46-0400 Body weight 95.71 kg Kelsey Plotts REINSTATEMENT CLERK.CNM Work Phone: [facility] 01-15-2022 13:46-0400 Diastolic blood pressure 82 mm[Hg] Kelsey Plotts REINSTATEMENT CLERK.CNM Work Phone: [facility] 01-15-2022 13:46-0400 Systolic blood pressure 130 mm[Hg] Kelsey Plotts REINSTATEMENT CLERK.CNM Work Phone: [facility] 01-07-2022 15:16-0400 Body weight 95.98 kg Kelsey Plotts REINSTATEMENT CLERK.CNM Work Phone: [facility] 01-07-2022 15:16-0400 Diastolic blood pressure 72 mm[Hg] Kelsey Plotts REINSTATEMENT CLERK.CNM Work Phone: [facility] 01-07-2022 15:16-0400 Systolic blood pressure 120 mm[Hg] Kelsey Cortes APRN.CNM Work Phone: [facility] 12-31-2021 15:44-0400 Body weight 95.25 kg Jennifer Dugan MD Work Phone: [facility] 12-31-2021 15:44-0400 Diastolic blood pressure 80 mm[Hg] Jennifer Dugan MD Work Phone: [facility] 12-31-2021 15:44-0400 Systolic blood pressure 126 mm[Hg] Jennifer Dugan MD Work Phone: [facility] 11-20-2021 10:26-0400 Body height 174.6 cm Jennifer Dugan MD Work Phone: [facility] 11-20-2021 10:26-0400 Body weight 93.44 kg Jennifer Dugan MD Work Phone: [facility] 11-20-2021 10:26-0400 Diastolic blood pressure 70 mm[Hg] Jennifer Dugan MD Work Phone: [facility] 11-20-2021 10:26-0400 Systolic blood pressure 128 mm[Hg] Jennifer Dugan MD Work Phone: [facility] Encounters Encounter Date Encounter Type Care Provider Facility Start: 08-24-2023 End: 08-24-2023 ambulatory VANDANA HUYNH Facility:[facility] Start: 08-24-2023 End: 08-24-2023 Patient encounter procedure Maurizio JAIN Work Phone: [facility] Procedures Date Procedure Procedure Detail Performing Clinician Start: 05-17-2023 STREP A MOLECULAR (POC) Harini Hillman APRN.ALTERATIONS WORKROOM CLERK Work Phone: Start: 04-02-2022 Urine test visual color cmprsn meths Deana Padgett MD Work Phone: Start: 01-29-2022 URINE OB DIP B/O Deana Padgett MD Work Phone: Start: 01-22-2022 URINE OB DIP B/O Deana Padgett MD Work Phone: Start: 01-15-2022 URINE OB DIP B/O Myrna Cortes REINSTATEMENT CLERK.CNM Work Phone: Start: 01-07-2022 URINE OB DIP B/O Myrna Cortes REINSTATEMENT CLERK.CNM Work Phone: Start: 12-31-2021 URINE OB DIP B/O Lashawn Dugan MD Work Phone: Start: 12-04-2021 Us preg uterus after 1st trimest 07/18 gestation Jennifer Dugan MD Work Phone: Start: 10-01-2021 CBC panel - Blood by Automated count [facility] Provider Start: 10-01-2021 GEST GLUC SCREEN, 1- HR, 50 GM, NON-FASTING [facility] Provider Start: 07-04-2021 GC/CHLAMYDIA DNA DET [facility] Provider Start: 06-03-2021 Antibody screen Nurse W str Work Phone: Start: 06-03-2021 CBC panel - Blood by Automated count [facility] Provider Start: 06-03-2021 GC/CHLAMYDIA AMPLIF, URINE [facility] Provider Start: 06-03-2021 HEP B SURF AG SCRN [facility] Provider Start: 06-03-2021 HIV COMBO (AC) [facility] Prov ider Start: 06-03-2021 RUBELLA IGG AB [facility] Prov ider Start: 06-03-2021 SYPHILIS TOTAL W/REFLEX [facility] Provider Start: 06-03-2021 TYPE + SCREEN (EXTER NAL LAB) [facility] Provider Plan of Treatment Date Care Activity Detail Author Start: 11-14-2031 Urine microalbumin profile [facility] Start: 11-01-2025 PAP TESTING PAP TESTING [facility] Start: 11-01-2025 Screening for malignant neoplasm of cervix Pap Testing [facility] Start: 07-18-2023 Depression Assessment Depression Assessment [facility] Start: 03-18-2023 Covid-19 Vaccine ( season) Covid-19 Vaccine ( season) [facility] Start: 03-18-2023 Influenza vaccination INFLUENZA (#1) [facility] Start: 01-07-2023 CHLAMYDIA SCREENING (18-) CHLAMYDIA SCREENING (18-) [facility] Start: 01-07-2023 GC (GONORRHEA) SCREENING (18-24) GC (GONORRHEA) SCREENING (18-24) [facility] Start: 01-07-2023 Screening for Chlamydia trachomatis Chlamydia Screening () [facility] Start: 07-18-2022 DEPRESSION ASSESSMENT DEPRESSION ASSESSMENT [facility] Start: 07-04-2022 CHLAMYDIA SCREENING (18-) CHLAMYDIA SCREENING (-) [facility] Start: 07-04-2022 GC (GONORRHEA) SCREENING () GC (GONORRHEA) SCREENING () [facility] Start: 2022 PAP TESTING PAP TESTING [facility] Start: 03-18-2022 Influenza vaccination INFLUENZA (#1) [facility] Start: 07-18-2021 DEPRESSION ASSESSMENT DEPRESSION ASSESSMENT [facility] Start: 05-13-2021 COVID-19 VACCINE (3 - Booster for Moderna series) COVID-19 VACCINE (3 - Booster for Moderna series) [facility] Start: 03-18-2021 Influenza vaccination INFLUENZA (#1) [facility] Start: 02-05-2021 COVID-19 VACCINE (3 - Booster for Moderna series) COVID-19 VACCINE (3 - Booster for Moderna series) [facility] Start: 02-05-2021 COVID-19 VACCINE (3 - Moderna series) COVID-19 VACCINE (3 - Moderna series) [facility] Start: 2020 Urine microalbumin profile DTAP,TDAP,TD (1 - Tdap) [facility] Start: 2019 CHLAMYDIA SCREENING (18-24) CHLAMYDIA SCREENING (18-24) [facility] Start: 2019 GC (GONORRHEA) SCREENING (18-24) GC (GONORRHEA) SCREENING (18-) [facility] Start: 2019 HEPATITIS C SCREENING HEPATITIS C SCREENING [facility] Start: 2019 HIV SCREENING HIV SCREENING [facility] Start: 2015 PEDS TO ADULT TRANSITION ANNUAL ASSESSMENT PEDS TO ADULT TRANSITION ANNUAL ASSESSMENT [facility] Start: 2013 Adult depression screening assessment DEPRESSION SCREENING [facility] Start: 2013 PEDS TO ADULT TRANSITION INITIAL DISCUSSION PEDS TO ADULT TRANSITION INITIAL DISCUSSION [facility] Start: 2012 HPV VACCINE (1 - 2-dose series) HPV VACCINE (1 - 2-dose series) [facility] Start: 2011 MENINGOCOCCAL B: Consider based on risk (1 of 2 - Risk Bexsero 2-dose series) MENINGOCOCCAL B: Consider based on risk (1 of 2 - Risk Bexsero 2-dose series) [facility] Start: 2006 COVID-19 VACCINE (1) COVID-19 VACCINE (1) [facility] Start: 2001 HEPATITIS B (3 of 3 - 3-dose series) HEPATITIS B (3 of 3 - 3-dose series) [facility] Start: 2001 Hepatitis B Vaccine (3 of 3 - 3-dose series) Hepatitis B Vaccine (3 of 3 - 3-dose series) [facility] Start: 2001 HEPATITIS B (1 of 3 - 3-dose series) HEPATITIS B (1 of 3 - 3-dose series) [facility] Chlamydia trachomatis+Neisseria gonorrhoeae DNA [Presence] in Unspecified specimen by NAI with probe detection GC/CHLAMYDIA DNA DET Lab Routine 36 weeks gestation of Encounter for supervision of normal first in third trimester 01/07/2022 3:49 PM EDT [facility] Work Phone: COVID & INFLUENZA A/ B & RSV NAAT, ROUTINE COVID & INFLUENZA A/B & RSV NAAT, ROUTINE Microbiology Routine URI, acute 08/24/2023 11:57 AM EST [facility] Work Phone: Insertion intrauteri ne device iud INSERT INTRAUTERINE DEVICE Procedures Routine Encounter for initial prescription of intrauterine contraceptive device (IUD) Ordered: 03/17/2022 [facility] Work Phone: Immunizations Immunization Date Immunization Notes Care Provider Eze weber 06-04-2022 influenza, injectabl e, quadrivalent, preservative free Malu Beltrán APRNPIPPA Work Phone: [facility] Work Phone: 11-13-2021 tetanus toxoid, redu navid diphtheria toxoid, and acellular pertussis vaccine, adsorbed Malu Leigh Ann REINSTATEMENT CLERK.[facility] Work Phone: [facility] Work Phone: 04-28-2021 influenza, injectabl e, quadrivalent, preservative free Malu Leigh Ann REINSTATEMENT CLERK.[facility] Work Phone: [facility] Work Phone: 03-04-2020 meningococcal B vacc ine, fully recombinant Malu Leigh Ann REINSTATEMENT CLERK.[facility] Work Phone: [facility] Work Phone: 05-16-2019 meningococcal B vacc ine, fully recombinant Malu Leigh Ann REINSTATEMENT CLERK.[facility] Work Phone: [facility] Work Phone: 05-16-2019 meningococcal polysaccharide (groups A, C, Y and W-135) diphtheria toxoid conjugate vaccine (MCV4P) Malu Leigh Ann REINSTATEMENT CLERK.[facility] Work Phone: [facility] Work Phone: 03-31-2016 influenza, seasonal, injectable Malu Leigh Ann REINSTATEMENT CLERK.[facility] Work Phone: [facility] Work Phone: 02-16-2016 human papilloma viru s vaccine, quadrivalent Malu Ratcliff REINSTATEMENT CLERK.[facility] Work Phone: [facility] Work Phone: 02-16-2016 meningococcal polysaccharide (groups A, C, Y and W-135) diphtheria toxoid conjugate vaccine (MCV4P) Malu Leigh Ann REINSTATEMENT CLERK.[facility] Work Phone: [facility] Work Phone: 05-27-2015 influenza, seasonal, injectable Malu Ratcliff REINSTATEMENT CLERK.[facility] Work Phone: [facility] 02-10-2015 human papilloma viru s vaccine, quadrivalent Malu Leigh Ann REINSTATEMENT CLERK.[facility] Work Phone: [facility] 12-26-2013 human papilloma viru s vaccine, quadrivalent Malu Leigh Ann REINSTATEMENT CLERK.[employer]TERATIONS WORKROOM CLERK Work Phone: [facility] Work Phone: 12-26-2013 tetanus toxoid, redu navid diphtheria toxoid, and acellular pertussis vaccine, adsorbed Malu Ratcliff REINSTATEMENT CLERK.[employer] WORKROOM CLERK Work Phone: [facility] Work Phone: 05-30-2012 influenza, seasonal, injectable Malu Leigh Ann REINSTATEMENT CLERK.[employer]TERATIONS WORKROOM CLERK Work Phone: [facility] Work Phone: 06-03-2008 influenza, seasonal, injectable Malu Ratcliff REINSTATEMENT CLERK.[employer]ATIONS WORKROOM CLERK Work Phone: [facility] 12-28-2006 diphtheria, tetanus toxoids and acellular pertussis vaccine, unspecified formulation Malu Ratcliff REINSTATEMENT CLERK.[employer]TERATIONS WORKROOM CLERK Work Phone: [facility] 12-28-2006 measles, mumps and rubella virus vaccine Malu Ratcliff REINSTATEMENT CLERK.[employer] WORKROOM CLERK Work Phone: [facility] 12-28-2006 poliovirus vaccine, inactivated Malu Leigh Ann REINSTATEMENT CLERK.[employer]ATIONS WORKROOM CLERK Work Phone: [facility] 06-08-2006 influenza, seasonal, injectable Malu Leigh Ann REINSTATEMENT CLERK.[employer]ATIONS WORKROOM CLERK Work Phone: [facility] 08-01-2002 diphtheria, tetanus toxoids and acellular pertussis vaccine, unspecified formulation Malu Ratcliff REINSTATEMENT CLERK.[employer]ATIONS WORKROOM CLERK Work Phone: [facility] 08-01-2002 pneumococcal conjuga te vaccine, 7 valent Malu Ratcliff REINSTATEMENT CLERK.[employer] WORKROOM CLERK Work Phone: [facility] 05-02-2002 haemophilus influenz ae type b vaccine, PRP-T conjugate Malu Leigh Ann REINSTATEMENT CLERK.[employer]TERATIONS WORKROOM CLERK Work Phone: [facility] 05-02-2002 measles, mumps and rubella virus vaccine Malu Leigh Ann REINSTATEMENT CLERK.ALTERATIONS WORKROOM CLERK Work Phone: [facility] 05-02-2002 varicella virus vaccine Yair e Ratcliff REINSTATEMENT CLERK.ALTERATIONS WORKROOM CLERK Work Phone: [facility] 2001 diphtheria, tetanus toxoids and acellular pertussis vaccine, unspecified formulation Malu Ratcliff REINSTATEMENT CLERK.ALTERATIONS WORKROOM CLERK Work Phone: [facility] 2001 haemophilus influenz ae type b conjugate and Hepatitis B vaccine Malu Leigh Ann REINSTATEMENT CLERK.ALTERATIONS WORKROOM CLERK Work Phone: [facility] 2001 pneumococcal conjuga te vaccine, 7 valent Malu Ratcliff REINSTATEMENT CLERK.ALTERATIONS WORKROOM CLERK Work Phone: [facility] 2001 poliovirus vaccine, inactivated Malu Leigh Ann REINSTATEMENT CLERK.ALTERATIONS WORKROOM CLERK Work Phone: [facility] 2001 hepatitis B vaccine, unspecified formulation Malu Leigh Ann REINSTATEMENT CLERK.ALTERATIONS WORKROOM CLERK Work Phone: [facility] 2001 diphtheria, tetanus toxoids and acellular pertussis vaccine, unspecified formulation Malu Leigh Ann REINSTATEMENT CLERK.ALTERATIONS WORKROOM CLERK Work Phone: [facility] 2001 haemophilus influenz ae type b vaccine, PRP-T conjugate Malu Ratcliff REINSTATEMENT CLERK.ALTERATIONS WORKROOM CLERK Work Phone: [facility] 2001 pneumococcal conjuga te vaccine, 7 valent Malu Leigh Ann REINSTATEMENT CLERK.ALTERATIONS WORKROOM CLERK Work Phone: [facility] 2001 poliovirus vaccine, inactivated Malu Leigh Ann REINSTATEMENT CLERK.ALTERATIONS WORKROOM CLERK Work Phone: [facility] 2001 diphtheria, tetanus toxoids and acellular pertussis vaccine, unspecified formulation Malu Leigh Ann REINSTATEMENT CLERK.ALTERATIONS WORKROOM CLERK Work Phone: [facility] 2001 haemophilus influenz ae type b conjugate and Hepatitis B vaccine Malu Ratcliff REINSTATEMENT CLERK.ALTERATIONS WORKROOM CLERK Work Phone: [facility] 2001 poliovirus vaccine, inactivated Malu Leigh Ann REINSTATEMENT CLERK.[facility] Work Phone: [facility] Payers Date Payer Category Payer Unknown [id number] 2019 Unknown MMO MMO [employer] [id number] 2019-Present [phone] [address] [place] [address] PPO [id number] 2019 Unknown [id number] 1970 Unknown [id number] Social History Date Type Detail Facility Tobacco smoking stat us VAIS Tobacco smoking consumption unknown [facility] Start: 2001 Sex Assigned At Not on file [facility] Start: 09-15-2021 End: 04-02-2022 Exposure to SARS-CoV-2 (event) Not sure [facility] Start: 10-22-2021 End: 03-11-2022 Tobacco smoking status VAIS Never smoked tobacco [facility] Work Phone: Start: 10-22-2021 End: 03-11-2022 Tobacco use and exposure Smokeless tobacco non-user [facility] Work Phone: Start: 10-22-2021 End: 08-24-2023 Alcohol intake Ex-drinker (finding) [facility] Start: 10-22-2021 Education 21 [facility] Start: 05-13-2021 [facility] Start: 2001 Sex Assigned At Female [facility] Start: 03-28-2023 End: 08-24-2023 History of Social function [facility] Start: 03-28-2023 End: 08-24-2023 Tobacco use panel [facility] National Score (1-100), lower number is lower risk 48 [facility] Start: 10-20-2021 Gender identity Identifies as female gender (finding) [facility] Goals Date Patient Goal Desired Activity /State Clinical Notes 10-09-2021 to 08-24-2023 Maurizio Allen PA - 08/24/2023 11:48 AM ESTMoise Trejo APRN.ALTERATIONS WORKROOM CLERK - 05/17/2023 9:38 AM Malu Jain APRN.[facility] - 03/28/2023 2:29 PM EDTPatient Instructions Note Date & Type Note Facility 08-24-2023 Note HNO ID: [id number] Author: MAURIZIO ALLEN PA Service: ? Author Type: Physician Warehouse Manager Type: Progress Notes Filed: 08/24/2023 11:50 Note Text: This note was created using Newtronriter. Subjective Iron Hunt is a 23 year old female. HPI 23-year-old female presents for fever, congestion, sore throat, achiness, fever. Patient states she had a stuffy nose and sore throat as well as fever a couple of days ago. She states stuffy nose and sore throat has improved. Today she had achiness, fever. She has not had any Tylenol or Motrin today. Her son is sick with similar symptoms. Patient has not had a cough. No chest pain or shortness of breath PAST MEDICAL HISTORY Diagnosis Date Acne vulgaris Chlamydia 06/03/2022 Exercise-induced asthma Migraine PAST SURGICAL HISTORY Procedure Laterality Date PAST SURGICAL HISTORY OF dental surgery TONSILLECTOMY AND ADENOIDECTOMY ALLERGIES House Dust MEDICATIONS FLUoxetine 10 mg tablet Take 10 mg by mouth once daily. hydrOXYzine HCl (ATARAX) 25 mg tablet Take 25 mg by mouth as needed. DRYSOL 20 % external solution Levonorgestrel-Ethinyl Estrad (AVIANE) 0.1mg - 20mcg per tablet Take 1 tablet by mouth once daily. acetaminophen (TYLENOL EXTRA STRENGTH ORAL) Take by mouth. FAMILY HISTORY Problem Relation Age of Onset Blood Clots Mother other (stomach ulcer) Mother Hypertension Mother Skin Cancer Father No Known Problems Sister Skin Cancer Maternal Grandmother Breast Cancer Maternal Grandmother Ovarian cancer Maternal Grandmother Diabetes Maternal Grandmother Hypertension Maternal Grandfather Diabetes Maternal Grandfather Heart Maternal Grandfather Arthritis Paternal Grandmother Skin Cancer Paternal Grandfather other (throat cancer) Paternal Grandfather Social History Tobacco Use Smoking status: Never Smokeless tobacco: Never Vaping Use Vaping Use: Never used Substance Use Topics Alcohol use: Not Currently Drug use: Never Review of Systems Constitutional: Positive for chills, fatigue and fever. HENT: Positive for congestion and sore throat. Negative for ear pain. Respiratory: Negative for cough and shortness of breath. Cardiovascular: Negative for chest pain. Gastrointestinal: Negative for abdominal pain, diarrhea and vomiting. Objective BP 110/76 Pulse (!) 131 Temp (!) 38.2 ?C (100.8 ?F) (Tympanic) Resp 18 Wt 96.2 kg (212 lb) LMP 03/05/2023 (Exact Date) SpO2 97% BMI 32.71 kg/m? Physical Exam Vitals and nursing note reviewed. Constitutional: General: She is not in acute distress. Appearance: Normal appearance. She is not toxic-appearing. HENT: Right Ear: Tympanic membrane and ear canal normal. Left Ear: Tympanic membrane and ear canal normal. Nose: Rhinorrhea present. Mouth/Throat: Mouth: Mucous membranes are moist. Pharynx: No oropharyngeal exudate or posterior oropharyngeal erythema. Eyes: Conjunctiva/sclera: Conjunctivae normal. Cardiovascular: Rate and Rhythm: Regular rhythm. Tachycardia present. Comments: Heart rate initially 130. She is febrile. On exam, heart rate 110. Pulmonary: Effort: Pulmonary effort is normal. Breath sounds: Normal breath sounds. No wheezing, rhonchi or rales. Neurological: Mental Status: She is alert. Assessment and Plan ASSESSMENT/PLAN: 1. URI, acute - ICD9: 465.9, ICD10: J06.9 - Discussed viral etiology and rationale for treatment. - Symptomatic treatment with prn analgesia - Supportive care with fluids and rest - The patient may also use OTC cough and cold meds as needed. - COVID AND INFLUENZA A/B AND RSV NAAT, ROUTINE -Out of window for Tamiflu. Diagnosis and treatment plan were discussed and questions were answered to the patient's satisfaction. Pt acknowledged understanding of concepts and follow up plan. Specific signs and symptoms that would indicate the need for higher level of care were discussed in detail warranting prompt ER evaluation. SUSY Arrington [facility] 08-24-2023 History of Present illness Narrative This note was created using Newtronriter. Subjective Iron Hunt is a 23 year old female. HPI 23-year-old female presents for fever, congestion, sore throat, achiness, fever. Patient states she had a stuffy nose and sore throat as well as fever a couple of days ago. She states stuffy nose and sore throat has improved. Today she had achiness, fever. She has not had any Tylenol or Motrin today. Her son is sick with similar symptoms. Patient has not had a cough. No chest pain or shortness of breath PAST MEDICAL HISTORY Diagnosis Date Acne vulgaris Chlamydia 06/03/2022 Exercise-induced asthma Migraine PAST SURGICAL HISTORY Procedure Laterality Date PAST SURGICAL HISTORY OF dental surgery TONSILLECTOMY & ADENOIDECTOMY <AGE 12 ALLERGIES House Dust MEDICATIONS FLUoxetine 10 mg tablet Take 10 mg by mouth once daily. hydrOXYzine HCl (ATARAX) 25 mg tablet Take 25 mg by mouth as needed. DRYSOL 20 % external solution Levonorgestrel-Ethinyl Estrad (AVIANE) 0.1mg - 20mcg per tablet Take 1 tablet by mouth once daily. acetaminophen (TYLENOL EXTRA STRENGTH ORAL) Take by mouth. FAMILY HISTORY Problem Relation Age of Onset Blood Clots Mother other (stomach ulcer) Mother Hypertension Mother Skin Cancer Father No Known Problems Sister Skin Cancer Maternal Grandmother Breast Cancer Maternal Grandmother Ovarian cancer Maternal Grandmother Diabetes Maternal Grandmother Hypertension Maternal Grandfather Diabetes Maternal Grandfather Heart Maternal Grandfather Arthritis Paternal Grandmother Skin Cancer Paternal Grandfather other (throat cancer) Paternal Grandfather Social History Tobacco Use Smoking status: Never Smokeless tobacco: Never Vaping Use Vaping Use: Never used Substance Use Topics Alcohol use: Not Currently Drug use: Never Review of Systems Constitutional: Positive for chills, fatigue and fever. HENT: Positive for congestion and sore throat. Negative for ear pain. Respiratory: Negative for cough and shortness of breath. Cardiovascular: Negative for chest pain. Gastrointestinal: Negative for abdominal pain, diarrhea and vomiting. Objective BP 110/76 Pulse (!) 131 Temp (!) 38.2 C (100.8 F) (Tympanic) Resp 18 Wt 96.2 kg (212 lb) LMP 03/05/2023 (Exact Date) SpO2 97% BMI 32.71 kg/m Physical Exam Vitals and nursing note reviewed. Constitutional: General: She is not in acute distress. Appearance: Normal appearance. She is not toxic-appearing. HENT: Right Ear: Tympanic membrane and ear canal normal. Left Ear: Tympanic membrane and ear canal normal. Nose: Rhinorrhea present. Mouth/Throat: Mouth: Mucous membranes are moist. Pharynx: No oropharyngeal exudate or posterior oropharyngeal erythema. Eyes: Conjunctiva/sclera: Conjunctivae normal. Cardiovascular: Rate and Rhythm: Regular rhythm. Tachycardia present. Comments: Heart rate initially 130. She is febrile. On exam, heart rate 110. Pulmonary: Effort: Pulmonary effort is normal. Breath sounds: Normal breath sounds. No wheezing, rhonchi or rales. Neurological: Mental Status: She is alert. Assessment and Plan ASSESSMENT/PLAN: 1. URI, acute - ICD9: 465.9, ICD10: J06.9 - Discussed viral etiology and rationale for treatment. - Symptomatic treatment with prn analgesia - Supportive care with fluids and rest - The patient may also use OTC cough and cold meds as needed. - COVID & INFLUENZA A/B & RSV NAAT, ROUTINE -Out of window for Tamiflu. Diagnosis and treatment plan were discussed and questions were answered to the patient's satisfaction. Pt acknowledged understanding of concepts and follow up plan. Specific signs and symptoms that would indicate the need for higher level of care were discussed in detail warranting prompt ER evaluation. SUSY Arrington documented in this encounter [facility] 08-24-2023 Instructions Maurizio Allen PA - 08/24/2023 11:42 AM EST [facility] PATIENT INFO INFLUENZA INTRODUCTION Influenza (commonly called the flu) is a highly contagious illness that can occur in children or adults of any age. It occurs more often in the winter months because people spend more time in close contact with one another. The flu is spread easily from mbcuvy-mi-nssfwl by coughing, sneezing, or touching surfaces. Every year, complications of the flu require more than 200,000 people in the [place] to be hospitalized. Serious illness is more likely in the very young, older adults, women, and people who have certain health problems such as asthma or other forms of lung disease. There have been several widespread flu outbreaks (called pandemics), which led to the deaths of many people worldwide. These outbreaks occurred when new strains of influenza viruses formed (often from pigs or birds) and humans became infected because they had no immunity to these viruses. FLU SYMPTOMS Symptoms of seasonal flu can vary from person to person, but usually include: Fever (temperature higher than 100 F or 37.8 C) Headache and muscle aches Fatigue Cough and sore throat may also be present People with the flu usually have a fever for two to five days. This is different than fever caused by other upper respiratory viruses, which usually resolve after 24 to 48 hours. Some people have cold-like symptoms (runny nose, sore throat) during the flu while others have fever and muscle aches. Flu symptoms usually improve over two to five days, although the illness may last for a week or more. Weakness and fatigue may persist for several weeks Flu complications -- Complications of influenza occur in some people; pneumonia is the most common complication. Pneumonia is a serious infection of the lungs, and is more likely to occur in people over the age of 65, people who live in termite control service representative care facilities (nursing homes), and those with other illnesses such as diabetes or conditions affecting the heart or lungs. FLU DIAGNOSIS Influenza is usually diagnosed based on symptoms (fever, cough and muscle aches). Lab testing for influenza is performed in certain cases, such as during a new influenza outbreak in a community. FLU TREATMENT When to seek help -- Most people with the flu recover within one to two weeks without treatment. However, serious complications of the flu can occur. Call your doctor or nurse immediately if: You feel short of breath or have trouble breathing You have pain or pressure in your chest or stomach You have signs of being dehydrated, such as dizziness when standing or not passing urine You feel confused You cannot stop vomiting or you cannot drink enough fluids There are several groups of people who are at increased risk for flu complications. These include women, young children (<5 years of age, and especially <2 years of age), people ?65 years of age, and people with certain diseases such as chronic lung disease (such as asthma), heart disease, diabetes, immunosuppressing conditions (such as HIV infection or transplantation), and some other diseases. If you or your child has flu symptoms and is at increased risk of flu complications, you should call your healthcare provider. Treat symptoms -- Treating the symptoms of influenza can help you to feel better, but will not make the flu go away faster. Rest until the flu is fully resolved, especially if the illness has been severe Fluids -- Drink enough fluids so that you do not become dehydrated. One way to office clerk if you are drinking enough is to look at the color of your urine. Normally, urine should be light yellow to nearly colorless. If you are drinking enough, you should pass urine every three to five hours. Acetaminophen (such as Tylenol and other brands) can relieve fever, headache, and muscle aches. Aspirin, and medicines that include aspirin (eg, bismuth subsalicylate; PeptoBismol), are not recommended for children under 18 because aspirin can lead to a serious disease called Kourtney syndrome. Cough medicines are not usually helpful; cough usually resolves without treatment. We do not recommend cough or cold medicine for children under age six years. Antiviral treatment -- Antiviral medicines can be used to treat or prevent influenza. When used as a treatment, the medicine does not eliminate flu symptoms, although it can reduce the severity and duration of symptoms by about one day. Not every person with influenza needs an antiviral medicine; the decision is based upon your risk of developing complications of influenza. Antiviral treatment is most effective for seasonal influenza when it is taken within the first 48 hours of flu symptoms. Side effects -- Zanamivir and oseltamivir can cause mild side effects, including nausea and vomiting; zanamivir, which is inhaled, can cause difficulty breathing in some cases. Most people are able to continue the medicine despite the side effects. Antibiotics -- Antibiotics are NOT useful for treating viral illnesses such as influenza. Antibiotics should only used if there is a bacterial complication of the flu such as bacterial pneumonia, ear infection, or sinusitis. Antibiotics can cause side effects and lead to development of antibiotic resistance. documented in this encounter [facility] 05-17-2023 Note HNO ID: [id number] Author: Moise Byrne APRN.ALTERATIONS WORKROOM CLERK Service: ? Author Type: Nurse Practitioner Type: Progress Notes Filed: 05/17/2023 9:50 AM Note Text: Subjective HPI HPI Iron Hunt is a 23 year old female who presents today for CC of st, body aches, h/a. This started 3 days ago. Has tried otc medication for relief. Symptoms are worsened by nothing. Risk factors sick exposures recently. Denies possibility of being . nonsmoker. .Patient presents with: Sore Throat: bodyaches, headache x 3 days PAST MEDICAL HISTORY Diagnosis Date Acne vulgaris Chlamydia 06/03/2022 Exercise-induced asthma Migraine PAST SURGICAL HISTORY Procedure Laterality Date PAST SURGICAL HISTORY OF dental surgery TONSILLECTOMY AND ADENOIDECTOMY ALLERGIES House Dust MEDICATIONS FLUoxetine 10 mg tablet Take 10 mg by mouth once daily. hydrOXYzine HCl (ATARAX) 25 mg tablet Take 25 mg by mouth as needed. DRYSOL 20 % external solution Levonorgestrel-Ethinyl Estrad (AVIANE) 0.1mg - 20mcg per tablet Take 1 tablet by mouth once daily. acetaminophen (TYLENOL EXTRA STRENGTH ORAL) Take by mouth. FAMILY HISTORY Problem Relation Age of Onset Blood Clots Mother other (stomach ulcer) Mother Hypertension Mother Skin Cancer Father No Known Problems Sister Skin Cancer Maternal Grandmother Breast Cancer Maternal Grandmother Ovarian cancer Maternal Grandmother Diabetes Maternal Grandmother Hypertension Maternal Grandfather Diabetes Maternal Grandfather Heart Maternal Grandfather Arthritis Paternal Grandmother Skin Cancer Paternal Grandfather other (throat cancer) Paternal Grandfather Social History Tobacco Use Smoking status: Never Smokeless tobacco: Never Vaping Use Vaping Use: Never used Substance Use Topics Alcohol use: Not Currently Drug use: Never Review of Systems Constitutional: Negative for fever. HENT: Positive for congestion, ear pain and sore throat. Negative for nosebleeds. Respiratory: Negative for cough, shortness of breath and wheezing. Cardiovascular: Negative for chest pain. Gastrointestinal: Negative for diarrhea and vomiting. Musculoskeletal: Negative for neck pain. Objective Blood pressure 124/80, pulse (!) 122, temperature 37.8 ?C (100 ?F), resp. rate 18, weight 94.8 kg (209 lb), last menstrual period 03/05/2023, SpO2 98 %, not currently . Physical Exam Constitutional: General: She is not in acute distress. Appearance: She is not toxic-appearing or diaphoretic. HENT: Head: Normocephalic and atraumatic. Right Ear: Hearing, tympanic membrane, ear canal and external ear normal. Left Ear: Hearing, tympanic membrane, ear canal and external ear normal. Nose: Nose normal. Mouth/Throat: Pharynx: Uvula midline. Posterior oropharyngeal erythema present. No pharyngeal swelling, oropharyngeal exudate or uvula swelling. Tonsils: No tonsillar exudate or tonsillar abscesses. 0 on the right. 0 on the left. Eyes: General: Lids are normal. No scleral icterus. Right eye: No discharge. Left eye: No discharge. Conjunctiva/sclera: Conjunctivae normal. Pupils: Pupils are equal, round, and reactive to light. Neck: Trachea: Trachea normal. Cardiovascular: Rate and Rhythm: Normal rate and regular rhythm. Heart sounds: Normal heart sounds. Pulmonary: Effort: Pulmonary effort is normal. Breath sounds: Normal breath sounds. Musculoskeletal: Cervical back: Normal range of motion and neck supple. Lymphadenopathy: Cervical: No cervical adenopathy. Right cervical: No superficial cervical adenopathy. Left cervical: No superficial cervical adenopathy. Skin: Findings: No rash. Neurological: Mental Status: She is alert and oriented to person, place, and time. ASSESSMENT/PLAN: 1. Sore throat - ICD9: 462, ICD10: J02.9 - suspect viral - Group A strep molecular testing negative - Discussed supportive care treatment with fluids, rest and analgesia. - STREP A MOLECULAR (POC) - PREDNISONE 20 MG TABLET Moise Byrne APRN.[facility] 05-17-2023 History of Present illness Narrative Subjective HPI HPI Iron Hunt is a 23 year old female who presents today for CC of st, body aches, h/a. This started 3 days ago. Has tried otc medication for relief. Symptoms are worsened by nothing. Risk factors sick exposures recently. Denies possibility of being . nonsmoker. .Patient presents with: Sore Throat: bodyaches, headache x 3 days PAST MEDICAL HISTORY Diagnosis Date Acne vulgaris Chlamydia 06/03/2022 Exercise-induced asthma Migraine PAST SURGICAL HISTORY Procedure Laterality Date PAST SURGICAL HISTORY OF dental surgery TONSILLECTOMY & ADENOIDECTOMY <AGE 13 ALLERGIES House Dust MEDICATIONS FLUoxetine 10 mg tablet Take 10 mg by mouth once daily. hydrOXYzine HCl (ATARAX) 25 mg tablet Take 25 mg by mouth as needed. DRYSOL 20 % external solution Levonorgestrel-Ethinyl Estrad (AVIANE) 0.1mg - 20mcg per tablet Take 1 tablet by mouth once daily. acetaminophen (TYLENOL EXTRA STRENGTH ORAL) Take by mouth. FAMILY HISTORY Problem Relation Age of Onset Blood Clots Mother other (stomach ulcer) Mother Hypertension Mother Skin Cancer Father No Known Problems Sister Skin Cancer Maternal Grandmother Breast Cancer Maternal Grandmother Ovarian cancer Maternal Grandmother Diabetes Maternal Grandmother Hypertension Maternal Grandfather Diabetes Maternal Grandfather Heart Maternal Grandfather Arthritis Paternal Grandmother Skin Cancer Paternal Grandfather other (throat cancer) Paternal Grandfather Social History Tobacco Use Smoking status: Never Smokeless tobacco: Never Vaping Use Vaping Use: Never used Substance Use Topics Alcohol use: Not Currently Drug use: Never Review of Systems Constitutional: Negative for fever. HENT: Positive for congestion, ear pain and sore throat. Negative for nosebleeds. Respiratory: Negative for cough, shortness of breath and wheezing. Cardiovascular: Negative for chest pain. Gastrointestinal: Negative for diarrhea and vomiting. Musculoskeletal: Negative for neck pain. Objective Blood pressure 124/80, pulse (!) 122, temperature 37.8 C (100 F), resp. rate 18, weight 94.8 kg (209 lb), last menstrual period 03/05/2023, SpO2 98 %, not currently . Physical Exam Constitutional: General: She is not in acute distress. Appearance: She is not toxic-appearing or diaphoretic. HENT: Head: Normocephalic and atraumatic. Right Ear: Hearing, tympanic membrane, ear canal and external ear normal. Left Ear: Hearing, tympanic membrane, ear canal and external ear normal. Nose: Nose normal. Mouth/Throat: Pharynx: Uvula midline. Posterior oropharyngeal erythema present. No pharyngeal swelling, oropharyngeal exudate or uvula swelling. Tonsils: No tonsillar exudate or tonsillar abscesses. 0 on the right. 0 on the left. Eyes: General: Lids are normal. No scleral icterus. Right eye: No discharge. Left eye: No discharge. Conjunctiva/sclera: Conjunctivae normal. Pupils: Pupils are equal, round, and reactive to light. Neck: Trachea: Trachea normal. Cardiovascular: Rate and Rhythm: Normal rate and regular rhythm. Heart sounds: Normal heart sounds. Pulmonary: Effort: Pulmonary effort is normal. Breath sounds: Normal breath sounds. Musculoskeletal: Cervical back: Normal range of motion and neck supple. Lymphadenopathy: Cervical: No cervical adenopathy. Right cervical: No superficial cervical adenopathy. Left cervical: No superficial cervical adenopathy. Skin: Findings: No rash. Neurological: Mental Status: She is alert and oriented to person, place, and time. ASSESSMENT/PLAN: 1. Sore throat - ICD9: 462, ICD10: J02.9 - suspect viral - Group A strep molecular testing negative - Discussed supportive care treatment with fluids, rest and analgesia. - STREP A MOLECULAR (POC) - PREDNISONE 20 MG TABLET Moise Byrne APRN.CNP documented in this encounter [facility] 03-28-2023 Note HNO ID: [id number] Author: Malu Beltrán APRN.CNP Service: ? Author Type: Nurse Practitioner Type: Progress Notes Filed: 03/28/2023 2:47 PM Note Text: This 22 year old female was started on BCPs and is here for follow-up. States she is compliant She has no tire bladder maker complaints She no complaints. Menses are normal and regular on BCPs. Denies abdominal pain, chest pain or headache. No pain or swelling in the legs. No other neurologic or pulmonary symptoms. Patient's last menstrual period was 03/05/2023 (exact date). Menstruation / History: Periods are regular q 28-30 days, lasting 4 days. Dysmenorrhea: none. Cyclic symptoms include none. No intermenstrual bleeding, spotting or discharge. Interval HX: no change. Last 1 Encounter BP Readings: Date: BP: 03/28/2023 112/66 EXAMINATION: Not Done ASSESSMENT/PLAN: Doing well on current BCP ORDERS: Office Visit on 03/28/23 FLUoxetine 10 mg tablet hydrOXYzine HCl (ATARAX) 25 mg tablet DRYSOL 20 % external solution Levonorgestrel-Ethinyl Estrad (AVIANE) 0.1mg - 20mcg per tablet DIAGNOSIS: (Z30.41) Encounter for surveillance of contraceptive pills (primary encounter diagnosis) RTC: when due for annual exam Malu Beltrán APRN.CNP Medical Decision Making: Problems: Low: Acute, uncomplicated illness or injury Risk: Low: Low risk from testing/treatment Moderate: Drug management Medical Decision Making Level: 3 - Low [facility] 03-28-2023 History of Present illness Narrative This 22 year old female was started on BCPs and is here for follow-up. States she is compliant She has no tire bladder maker complaints She no complaints. Menses are normal and regular on BCPs. Denies abdominal pain, chest pain or headache. No pain or swelling in the legs. No other neurologic or pulmonary symptoms. Patient's last menstrual period was 03/05/2023 (exact date). Menstruation / History: Periods are regular q 28-30 days, lasting 4 days. Dysmenorrhea: none. Cyclic symptoms include none. No intermenstrual bleeding, spotting or discharge. Interval HX: no change. Last 1 Encounter BP Readings: Date: BP: 03/28/2023 112/66 EXAMINATION: Not Done ASSESSMENT/PLAN: Doing well on current BCP ORDERS: Office Visit on 03/28/23 FLUoxetine 10 mg tablet hydrOXYzine HCl (ATARAX) 25 mg tablet DRYSOL 20 % external solution Levonorgestrel-Ethinyl Estrad (AVIANE) 0.1mg - 20mcg per tablet DIAGNOSIS: (Z30.41) Encounter for surveillance of contraceptive pills (primary encounter diagnosis) RTC: when due for annual exam Malu Beltrán APRN.CNP Medical Decision Making: Problems: Low: Acute, uncomplicated illness or injury Risk: Low: Low risk from testing/treatment Moderate: Drug management Medical Decision Making Level: 3 - Low documented in this encounter [facility] 11-01-2022 Note HNO ID: [id number] Author: Malu Beltrán APRN.CNP Service: ? Author Type: Nurse Practitioner Type: Progress Notes Filed: 11/01/2022 12:01 PM Note Text: Tumbling And Rolling Supervisor offered: Patient declines. Iron is a 22 year old who presents for an annual gynecologic exam with complaints, would like to change control . She has been trying to lose weight but is gaining weight. She has made changes to her diet and is getting exercise in. Getting Mar 2024 Menses: no menses Contraception: Depo Provera HPV vaccine: Yes Last Pap: never Last mammogram: never Sexually active: Yes History of STDS: chlamydia Patient concerns for STD exposure: No. Pain with intercourse: No Postcoital bleeding: No OB History T1 L1 SAB0 IAB0 Ectopic0 Multiple0 Live Births1 Car Changer History LMP: 04/17/2021, Injection Age at Menarche: Age at First : Age at Menopause: Car Changer History Comments: Sexual Activity: Yes; Male Contraception: Injection PAST MEDICAL HISTORY Diagnosis Date Acne vulgaris Chlamydia 06/03/2022 Exercise-induced asthma Migraine PAST SURGICAL HISTORY Procedure Laterality Date PAST SURGICAL HISTORY OF dental surgery TONSILLECTOMY AND ADENOIDECTOMY FAMILY HISTORY Problem Relation Age of Onset Blood Clots Mother other (stomach ulcer) Mother Hypertension Mother Skin Cancer Father No Known Problems Sister Skin Cancer Maternal Grandmother Breast Cancer Maternal Grandmother Ovarian cancer Maternal Grandmother Diabetes Maternal Grandmother Hypertension Maternal Grandfather Diabetes Maternal Grandfather Heart Maternal Grandfather Arthritis Paternal Grandmother Skin Cancer Paternal Grandfather other (throat cancer) Paternal Grandfather SOCIAL HISTORY Social History Tobacco Use Smoking status: Never Smokeless tobacco: Never Vaping Use Vaping Use: Never used Substance Use Topics Alcohol use: Not Currently Drug use: Never REVIEW OF SYSTEMS Abdomen: No abdominal pain, nausea, vomiting, diarrhea, or constipation. No bloating, early satiety, indigestion, or increased flatulence. Bladder: No dysuria, gross hematuria, urinary frequency, urinary urgency, or incontinence. Breast: No breast lumps, nipple d/c, overlying skin changes, redness or skin retraction. Stopped breast feeding in Jul 2022 Allergies and current medication updated:Yes EXAM: BP 110/70 Ht 5' 7.5 (1.72m) Wt 210 lb 3.2 oz (95.3kg) LMP 04/17/2021 BMI 32.42 kg/(m2). GENERAL: pleasant, female in no apparent distress HEENT: Normocephalic, atraumatic, mucus membranes moist, and no lesions NECK: Supple, full range of motion, no adenopathy, and thyroid normal DERMATOLOGY: Normal, without lesions, non-icteric, and non-hirsute BREAST: soft, non-tender, symmetric, no dominant mass, normal nipple-areolar complex, no lymphadenopathy, and no nipple discharge CHEST: Normal inspiratory effort ABDOMEN: soft, non-tender, and no masses PELVIC: external genitalia normal, normal Bartholin's glands, urethra, Algoma's glands, no vulvar lesions, no cervical lesions, good vaginal support, physiologic discharge present, normal appearing perineal body and perianal region Retroverted BIMANUAL: uterus normal size, shape and consistency, no adnexal masses, and non-tender RECTOVAGINAL: deferred. NEURO: alert and oriented x3,exam grossly non-focal EXTREMITIES: normal ASSESSMENT/PLAN: 1) Health maintenance: Pap done with reflex HPV. Mammogram starting age 40. Nutrition, exercise and routine health maintenance exams reviewed. Calcium/Vitamin D supplementation information provided. HPV vaccine: completed series 2) Contraception: combined hormonal contraceptives. Contraceptive options reviewed and information provided. D/C Depo and switch to OCP 3) STD screening: Declined STD check. 4) Follow up one year or sooner as needed, med check 03/2023 Malu Beltrán APRN.LUIGI [facility] 11-01-2022 Instructions Malu Beltrán APRN.LUIGI - 11/01/2022 11:53 AM EDT Oral Contraceptives: The Pill Beginning the Pill Pills come in either a 21 day pack or a 28 day pack. With the 21 day pack you will take one pill for 21 days then no pill for 7 days, during which time you will have what is known as withdrawal bleeding. The 28 day pack allows you to take a pill every day of the cycle with no interruptions. The first 21 pills are the pills with the active ingredients and the last 7 are the nonmedical pills (placebo) or they may contain iron. There will be bleeding during the week you are taking the nonmedical pills. The advantage to the 28 day pack is that you don t have to keep track of when you stopped the pill. There are a group of 28 day pills that contain 24 active pills and only 4 placebo pills. These are formulated to give you a apprentice architect period. Unless otherwise instructed, you should start your pills the Tuesday following your first day of bleeding with your next period (if your period starts on a Tuesday, you should start pills the same day) Read your information packet that comes with the pills. Pill Benefits The pill is the most popular method of reversible control being used today. Millions of women rely on oral contraceptives as their control method. It is important to have an examination by your physician to determine if the pill is safe for you. There are several advantages associated with the pill: it is 97-98% effective when used correctly; may improve acne; periods are more regular and less painful; there is less iron deficiency anemia in pill users. joint terminal attack controller use is associated with a decreased incidence of ovarian and uterine cancer. There is also no evidence that the pill increases the incidence of any cancer. How Oral Contraceptives Work Oral contraceptives come in two varieties. One is the combination pill which contains both estrogen and progesterone. Combination pills are considered 98-99% effective in preventing . This pill comes in either monophasic, which delivers the same amount of estrogen and progesterone throughout the cycle; and triphasic, which try tries to mimic the normal hormone cycle by changing the levels of the hormones in the pills during the month. There is no real advantage to taking the one over the other. The other type of pill only contains progesterone. It is best used for women who can t take estrogen. This type of pill is slightly less effective than the combination pill in preventing . It is VERY important to take the progesterone only pill at the same time every day. Oral contraceptives prevent ovulation (release of an egg from the ovary) by suppressing the pituitary gland s action. The pill does NOT prevent sexually transmitted disease. Obtaining a Prescription It is important to see your doctor before starting oral contraceptives so that you can have a full medical history taken and a physical examination given. Certain medical conditions may make the pill inappropriate for you, therefore it is very important to be honest and as complete as possible with the information you share with your doctor. The types of predisposing factors which would make the pill a poor choice of control would include: History of blood clots Stroke Serious liver disease or impaired liver function Unexplained vaginal bleeding or Cancer of the reproductive system Active gall bladder disease Hypertension Possible Side Effects It can take up to three months for your body to become adjusted to the pill. The more common side effects experienced at this time are: breakthrough spotting or bleeding, which is bleeding at any other time other than when you should be having a period; nausea or vomiting; breast tenderness; and mild fluid retention. There is no termite control service representative weight gain with the use of the pill. Breakthrough bleeding is the most common complaint of new pill users. There is no way to predict who will have it and there is no way of preventing it. Breakthrough bleeding usually subsides on its own with no further treatment after the first three months of taking the pill. If these symptoms continue to occur after the first three months you should check with your physician to see if there is any physical cause and possibly change to another control pill. Problems: Missed 1 pill: Take 2 pills the next day. Missed 2 pills: Take 2 pills the next day and 2 pills the following day. Also use another form of control (condoms) along with the pill for the rest of the month. Missed 3 or more pills: You have two choices. You can take two pills each day until you are on schedule, plus use an additional form of control along with the pill for the rest of the month. Or you can stop the pill and start a completely new pack of pills the next Tuesday. You must use another form of control with the pill for at least the first two weeks of the new pack. You re ill and you have been vomiting or have diarrhea: You must use another form of control with the pill since the pill may not be fully absorbed during your illness. Continue to use the added control until the end of the cycle. Desire to become : Stop using the pill for one month before trying to become . Taking other medications: The control pill is less effective when you take the antibiotic Rifampin, epilepsy (seizure) drugs such as phenytoin, carbamazepine, phenobarbital, topiramate and some medications for HIV. Let your doctor know if you start taking any of these medications while on the pill. Symptoms to Notify Your Doctor with Immediately: Pain in your chest or legs Continuous blurred vision Severe headaches Slurred speech Tingling or weakness on one side of your body Shortness of breath Swelling of one leg Refills of Control Pills You need to see a doctor every year for a refill of your prescription. This is necessary in order that your health can be monitored closely while you are taking control pills. If your prescription should before your next scheduled appointment you can usually get a one month extension from your doctors office if you call during regular business hours about one week before you need to start the new package of pills. This allows the physician to refer to your chart for necessary health information. 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 Iron is a 22 year old who presents for an annual gynecologic exam with complaints, would like to change control . She has been trying to lose weight but is gaining weight. She has made changes to her diet and is getting exercise in. Getting Mar 2024 Menses: no menses Contraception: Depo Provera HPV vaccine: Yes Last Pap: never Last mammogram: never Sexually active: Yes History of STDS: chlamydia Patient concerns for STD exposure: No. Pain with intercourse: No Postcoital bleeding: No OB History T1 L1 SAB0 IAB0 Ectopic0 Multiple0 Live Births1 Car Changer History LMP: 04/17/2021, Injection Age at Menarche: Age at First : Age at Menopause: Car Changer History Comments: Sexual Activity: Yes; Male Contraception: Injection PAST MEDICAL HISTORY Diagnosis Date Acne vulgaris Chlamydia 06/03/2022 Exercise-induced asthma Migraine PAST SURGICAL HISTORY Procedure Laterality Date PAST SURGICAL HISTORY OF dental surgery TONSILLECTOMY & ADENOIDECTOMY <AGE 13 FAMILY HISTORY Problem Relation Age of Onset Blood Clots Mother other (stomach ulcer) Mother Hypertension Mother Skin Cancer Father No Known Problems Sister Skin Cancer Maternal Grandmother Breast Cancer Maternal Grandmother Ovarian cancer Maternal Grandmother Diabetes Maternal Grandmother Hypertension Maternal Grandfather Diabetes Maternal Grandfather Heart Maternal Grandfather Arthritis Paternal Grandmother Skin Cancer Paternal Grandfather other (throat cancer) Paternal Grandfather SOCIAL HISTORY Social History Tobacco Use Smoking status: Never Smokeless tobacco: Never Vaping Use Vaping Use: Never used Substance Use Topics Alcohol use: Not Currently Drug use: Never REVIEW OF SYSTEMS Abdomen: No abdominal pain, nausea, vomiting, diarrhea, or constipation. No bloating, early satiety, indigestion, or increased flatulence. Bladder: No dysuria, gross hematuria, urinary frequency, urinary urgency, or incontinence. Breast: No breast lumps, nipple d/c, overlying skin changes, redness or skin retraction. Stopped breast feeding in Jul 2022 Allergies and current medication updated:Yes EXAM: BP 110/70 Ht 5' 7.5 (1.72m) Wt 210 lb 3.2 oz (95.3kg) LMP 04/17/2021 BMI 32.42 kg/(m^2). GENERAL: pleasant, female in no apparent distress HEENT: Normocephalic, atraumatic, mucus membranes moist, and no lesions NECK: Supple, full range of motion, no adenopathy, and thyroid normal DERMATOLOGY: Normal, without lesions, non-icteric, and non-hirsute BREAST: soft, non-tender, symmetric, no dominant mass, normal nipple-areolar complex, no lymphadenopathy, and no nipple discharge CHEST: Normal inspiratory effort ABDOMEN: soft, non-tender, and no masses PELVIC: external genitalia normal, normal Bartholin's glands, urethra, Algoma's glands, no vulvar lesions, no cervical lesions, good vaginal support, physiologic discharge present, normal appearing perineal body and perianal region Retroverted BIMANUAL: uterus normal size, shape and consistency, no adnexal masses, and non-tender RECTOVAGINAL: deferred. NEURO: alert and oriented x3,exam grossly non-focal EXTREMITIES: normal ASSESSMENT/PLAN: 1) Health maintenance: Pap done with reflex HPV. Mammogram starting age 40. Nutrition, exercise and routine health maintenance exams reviewed. Calcium/Vitamin D supplementation information provided. HPV vaccine: completed series 2) Contraception: combined hormonal contraceptives. Contraceptive options reviewed and information provided. D/C Depo and switch to OCP 3) STD screening: Declined STD check. 4) Follow up one year or sooner as needed, med check 03/2023 Malu Beltrán APRN.ALTERATIONS WORKROOM CLERK documented in this encounter [facility] 09-23-2022 Note HNO ID: [id number] Author: Shantell Grayson LPN Service: ? Author Type: ? Type: Progress Notes Filed: 09/23/2022 4:22 PM Note Text: Pt seen in office today for Depo Provera Injection. Patient brought own med. Wt 206 lb 9.6 oz (93.7kg) LMP 04/17/2021 Vital signs reviewed. Pt advised when to return for next injection and/or yearly pap. Tolerated injection well? YesPatient identified by name and date of . Iron Hunt is here for a Depo Provera injection. Patient brought medication. Date last injected: 06/24/22 Depo-Provera, 150 mg, administered IM left upper quadrant gluteus, Lot # [id number], expiration date 11/14/26. Depo-Provera was given without incident. Date of last menses: Patient's last menstrual period was 04/17/2021. Irregular bleeding - Yes Menses ceased - Yes STD prevention discussed: Yes Patient instructed to return to clinic on 12 weeks +/-5days. [email or web address] Provider Malu Beltrán CNP was present in office at time of injection. Shantell Grayson LPN . See medication note for lot#, exp date. [facility] 09-23-2022 Instructions Shantell Kenan CAMPOS - 09/23/2022 3:37 PM EST Patient Instructions for Depo-Provera You have chosen a very effective method of control - shots every 3 months of Depo-Provera. control shots are used by more than 6 million women around the world, and Depo-provera is the most commonly used injection or shot. Certain Women should NOT use Depo-Provera Contraception injection. You should not use Depo-Provera if you... Think you might be Have any vaginal bleeding without a known cause Have had cancer of the breast Have had a stroke Have or have had blood clots (phlebitis) in your legs Have problems with your liver or liver disease Are allergic to Depo-Provera Contraception Injection (medroxyprogesterone acetate or any of it's ingredients) If you wish to get , stop control shots several months before you plan to get . The following information may help you use Depo-Provera: 1. Use another form of control for 2 weeks after your first injection. 2. Depo-Provera tends to make a woman's periods less regular and bleeding and spotting between periods is common for the first 9 -12 months. Some women stop having periods completely, usually after 9 months on Depo-Provera. If your pattern of bleeding concerns you, return to the clinic to get a blood test for anemia, or to check the possibility of , or to check for an infection. 3. Return to the clinic every 3 months for another shot.(Between weeks 11-13 from your last injection) 4. Weight gain is common the first 3 years on Depo-Provera. More than 5 pounds the first year, should be reported. 5. Depo-Provera is intended to prevent . It does not protect against transmission of HIV (AIDS) and other sexually transmitted diseases such as chlamydia, genital herpes, genital warts, gonorrhea, hepatitis B, and syphilis. You should continue to use condoms. 6. Report to the clinic if you develop any problems. DANGER SIGNALS - Weight gain of more than 5 pounds - Headaches - Heavy Bleeding - Depression - Frequent urination These instructions have been explained to the patient and she received a copy. 09/23/2022 documented in this encounter [facility] 09-23-2022 History of Present illness Narrative Pt seen in office today for Depo Provera Injection. Patient brought own med. Wt 206 lb 9.6 oz (93.7kg) LMP 04/17/2021 Vital signs reviewed. Pt advised when to return for next injection and/or yearly pap. Tolerated injection well? YesPatient identified by name and date of . Iron Hunt is here for a Depo Provera injection. Patient brought medication. Date last injected: 06/24/22 Depo-Provera, 150 mg, administered IM left upper quadrant gluteus, Lot # [id number], expiration date 11/14/26. Depo-Provera was given without incident. Date of last menses: Patient's last menstrual period was 04/17/2021. Irregular bleeding - Yes Menses ceased - Yes STD prevention discussed: Yes Patient instructed to return to clinic on 12 weeks +/-5days. [email or web address] Provider Malu Beltrán CNP was present in office at time of injection. Shantell Grayson LPN . See medication note for lot#, exp date. documented in this encounter [facility] 08-19-2022 Miscellaneous Notes Phone call placed patient advised (see prior provider encounter) Patient verbalized understanding, agreed with plan of care. Kaylee Mariano LPN [facility] Patient reports she was seen at [facility] today and provider stated he would be ordering prednisone for patient. Patient states she does not think the prednisone was ordered. Informed pt that according to exam note, patient was to continue symptomatic treatment and supportive care at home. Pt asking for message to be sent to provider to clarify if prednisone was going to be sent to her pharmacy or not? Pt uses [facility] in [place]. Please call pt with update. Thank you. documented in this encounter [facility] 08-19-2022 Miscellaneous Notes Addended by: MOISE BYRNE on: 08/19/2022 02:26 PM Modules accepted: Orders documented in this encounter [facility] 08-19-2022 History of Present illness Narrative Subjective HPI HPI Iron Hunt is a 22 year old female who presents today for CC of nasal congestion, h/a, st, ear pressure. This started 2 days ago. Has tried otc medication for relief. Symptoms are worsened by nothing. Risk factors sick exposures at home. Denies possibility of being . nonsmoker. .Patient presents with: Headache: Pt reported nasal congestion, pressure bilateral ears, x3 days. PAST MEDICAL HISTORY Diagnosis Date Acne vulgaris Chlamydia 06/03/2022 Exercise-induced asthma Migraine PAST SURGICAL HISTORY Procedure Laterality Date PAST SURGICAL HISTORY OF dental surgery TONSILLECTOMY & ADENOIDECTOMY <AGE 13 ALLERGIES House Dust MEDICATIONS medroxyPROGESTERone (DEPO-PROVERA) 150 mg/mL injection^Inject 1 mL intramuscularly every 12 weeks.^Disp: 1 mL^Rfl: 3 multivitamin (CLASSIC ) 28 mg iron- 800 mcg tab(s)^Take 1 tablet by mouth once daily.^Disp: ^Rfl: acetaminophen (TYLENOL EXTRA STRENGTH ORAL)^Take by mouth.^Disp: ^Rfl: ALBUTEROL INHALATION^Inhale as instructed.^Disp: ^Rfl: (Patient not taking: Reported on 04/01/2022) FAMILY HISTORY Problem Relation Age of Onset Blood Clots Mother other (stomach ulcer) Mother Hypertension Mother Skin Cancer Father No Known Problems Sister Skin Cancer Maternal Grandmother Breast Cancer Maternal Grandmother Ovarian cancer Maternal Grandmother Diabetes Maternal Grandmother Hypertension Maternal Grandfather Diabetes Maternal Grandfather Heart Maternal Grandfather Arthritis Paternal Grandmother Skin Cancer Paternal Grandfather other (throat cancer) Paternal Grandfather Social History Tobacco Use Smoking status: Never Smokeless tobacco: Never Vaping Use Vaping Use: Never used Substance Use Topics Alcohol use: Not Currently Drug use: Never Review of Systems Constitutional: Negative for fever. HENT: Positive for congestion, ear pain and sore throat. Negative for ear discharge and nosebleeds. Respiratory: Positive for cough. Negative for shortness of breath and wheezing. Cardiovascular: Negative for chest pain. Gastrointestinal: Negative for diarrhea and vomiting. Musculoskeletal: Negative for neck pain. Skin: Negative for itching and rash. Objective Blood pressure 128/74, pulse 108, temperature 37 C (98.6 F), temperature source Tympanic, resp. rate 18, weight 92.9 kg (204 lb 12.8 oz), last menstrual period 04/17/2021, SpO2 100 %, not currently . Physical Exam Constitutional: General: She is not in acute distress. Appearance: She is not toxic-appearing or diaphoretic. HENT: Head: Normocephalic and atraumatic. Right Ear: Hearing, tympanic membrane, ear canal and external ear normal. Left Ear: Hearing, tympanic membrane, ear canal and external ear normal. Nose: Nose normal. Mouth/Throat: Pharynx: Uvula midline. No pharyngeal swelling, oropharyngeal exudate, posterior oropharyngeal erythema or uvula swelling. Eyes: General: Lids are normal. No scleral icterus. Right eye: No discharge. Left eye: No discharge. Conjunctiva/sclera: Conjunctivae normal. Pupils: Pupils are equal, round, and reactive to light. Neck: Trachea: Trachea normal. Cardiovascular: Rate and Rhythm: Normal rate and regular rhythm. Heart sounds: Normal heart sounds. Pulmonary: Effort: Pulmonary effort is normal. Breath sounds: Normal breath sounds. Musculoskeletal: Cervical back: Normal range of motion and neck supple. Lymphadenopathy: Cervical: No cervical adenopathy. Right cervical: No superficial cervical adenopathy. Left cervical: No superficial cervical adenopathy. Skin: Findings: No rash. Neurological: Mental Status: She is alert and oriented to person, place, and time. ASSESSMENT/PLAN: 1. URI, acute - ICD9: 465.9, ICD10: J06.9 Duration of s/s 2 days/negative exam. - Discussed viral etiology and rationale for treatment. - Symptomatic treatment with prn analgesia - Supportive care with fluids and rest - Follow up in 3-5 days if symptoms persist or sooner if worsening of symptoms -declines covid testing. Moise Byrne APRN.LUIGI documented in this encounter [facility] 06-24-2022 Instructions Shantell Grayson LPN - 06/24/2022 9:59 AM EST Patient Instructions for Depo-Provera You have chosen a very effective method of control - shots every 3 months of Depo-Provera. control shots are used by more than 6 million women around the world, and Depo-provera is the most commonly used injection or shot. Certain Women should NOT use Depo-Provera Contraception injection. You should not use Depo-Provera if you... Think you might be Have any vaginal bleeding without a known cause Have had cancer of the breast Have had a stroke Have or have had blood clots (phlebitis) in your legs Have problems with your liver or liver disease Are allergic to Depo-Provera Contraception Injection (medroxyprogesterone acetate or any of it's ingredients) If you wish to get , stop control shots several months before you plan to get . The following information may help you use Depo-Provera: 1. Use another form of control for 2 weeks after your first injection. 2. Depo-Provera tends to make a woman's periods less regular and bleeding and spotting between periods is common for the first 9 -12 months. Some women stop having periods completely, usually after 9 months on Depo-Provera. If your pattern of bleeding concerns you, return to the clinic to get a blood test for anemia, or to check the possibility of , or to check for an infection. 3. Return to the clinic every 3 months for another shot.(Between weeks 11-13 from your last injection) 4. Weight gain is common the first 3 years on Depo-Provera. More than 5 pounds the first year, should be reported. 5. Depo-Provera is intended to prevent . It does not protect against transmission of HIV (AIDS) and other sexually transmitted diseases such as chlamydia, genital herpes, genital warts, gonorrhea, hepatitis B, and syphilis. You should continue to use condoms. 6. Report to the clinic if you develop any problems. DANGER SIGNALS - Weight gain of more than 5 pounds - Headaches - Heavy Bleeding - Depression - Frequent urination These instructions have been explained to the patient and she received a copy. 06/24/2022 documented in this encounter [facility] 06-24-2022 History of Present illness Narrative Pt seen in office today for Depo Provera Injection. Patient brought own med. Wt 203 lb 3.2 oz (92.2kg) LMP 04/17/2021 Vital signs reviewed. Pt advised when to return for next injection and/or yearly pap. Tolerated injection well? YesPatient identified by name and date of . Iron Hunt is here for a Depo Provera injection. Patient brought medication. Date last injected: 04/02/22 Depo-Provera, 150 mg, administered IM right upper quadrant gluteus, Lot # [id number], expiration date 03/17/26. Depo-Provera was given without incident. Date of last menses: Patient's last menstrual period was 04/17/2021. Irregular bleeding - No Menses ceased - periods are 2 weeks in length STD prevention discussed: Yes Patient instructed to return to clinic on 12weeks +/- 5days. [email or web address] Provider Candice Valle CNP was present in office at time of injection. Shantlel Grayson LPN . See medication note for lot#, exp date. documented in this encounter [facility] 04-02-2022 Instructions Radha Garza RN - 04/02/2022 10:05 AM EDT DEPO-PROVERA control is a way for men and women to prevent . There are many different methods of control; some types also protect against sexually transmitted diseases. Depo-Provera is a control method for women. It is made up of a hormone similar to progesterone and is given as a shot into the woman's arm or buttocks. Each shot provides protection against for up to 14 weeks, but the shot must be received once every 3 months. Depo-Provera does not protect against sexually transmitted diseases. Where can I get Depo-Provera? You must receive the shot from a doctor. The shot is usually given within five days of the beginning of your menstrual period. How is Depo-Provera used? Once the shot has been given, no additional steps are needed to prevent . With Depo-Provera, you must receive another shot once every three months to remain fully protected. How soon does it work? Protection begins immediately after the first shot if given during a menstrual period. How effective is Depo-Provera? Depo-Provera is 99% effective in preventing . Can any woman use Depo-Provera? Most women can use Depo-Provera. However, it is not recommended for women who have: Unexplained vaginal bleeding Liver disease Breast cancer Blood clots Are there side effects associated with Depo-Provera? Depo-Provera can cause a number of side effects, including: Irregular menstrual periods, or no periods at all Headaches Nervousness Depression Dizziness Acne Changes in appetite Weight gain Excessive growth of facial and body hair Hair loss You should discuss the potential side effects of Depo-Provera with your doctor. Most of the side effects are not common. Change in the menstrual cycle is the most common side effect. You may experience irregular bleeding or spotting. After a year of use, about 50% of women will stop getting their periods. Their periods usually return when they discontinue the shots. Can I become after I stop using Depo-Provera? With Depo-Provera, you could become as soon as 12 to 14 weeks after your last shot. It may take some women up to a year or two to conceive after they stop using this type of control. Does Depo-Provera protect against sexually transmitted diseases? No. To help protect yourself from STDs, use a male condom each time you and your partner have sex. What are the advantages of using Depo-Provera? You don't have to remember to take it every day or use it before sex. It provides long-term protection as long as you get the shot every three months. It doesn't interfere with sexual activity. It's over 99% effective. It's less expensive than the Pill. What are the disadvantages of using Depo-Provera? It can cause unwanted side effects. It does not provide protection against sexually transmitted diseases. It can cause irregular menstrual periods. You need to stop taking Depo-Provera several months ahead of time if you plan to become . Regular doctor visits can be inconvenient. Copyright 0445-3659 The [facility]. All rights reserved This information is provided by the [facility] and is not intended to replace the medical advice of your doctor or health care provider. Please consult your health care provider for advice about a specific medical condition. For additional written health information, please contact the Health Information Center at the [facility] or toll-free extension [phone]. This document was last reviewed on: 2004 documented in this encounter [facility] 04-02-2022 History of Present illness Narrative Patient identified by name and date of . Iron Hunt is here for a Depo Provera injection. Patient brought medication. Date last injected: first injection - negative test. Depo-Provera, 150 mg, administered IM left upper quadrant gluteus, Lot # [id number], expiration date 03/17/2026. Depo-Provera was given without incident. Date of last menses: Patient's last menstrual period was 04/17/2021. Irregular bleeding - No Menses ceased - Yes STD prevention discussed: Yes Patient instructed to return to clinic in 12 weeks. [email or web address] Provider Deana Padgett MD was present in office at time of injection. Radha Garza RN documented in this encounter [facility] 04-01-2022 History of Present illness Narrative Iron Hunt is a 21 year old female who presents for problem visit discuss Depo Provera for contraception. HPI: Pt was scheduled to have IUD inserted today but would like to discuss Depo Provera instead. Sister uses Depo and she has read about Depo online. Pumping for 7 week old baby, almost exclusively fed breast milk. Has not resumed menses. Currently sexually active, using condoms. OB History T1 L1 SAB0 IAB0 Ectopic0 Multiple0 Live Births1 Car Changer History LMP: 04/17/2021, Age at Menarche: Age at First : Age at Menopause: Car Changer History Comments: Sexual Activity: Yes; Male Contraception: No contraception data on record PAST MEDICAL HISTORY Diagnosis Date Acne vulgaris Chlamydia 06/03/2022 Exercise-induced asthma Migraine PAST SURGICAL HISTORY Procedure Laterality Date PAST SURGICAL HISTORY OF dental surgery TONSILLECTOMY & ADENOIDECTOMY <AGE 13 FAMILY HISTORY Problem Relation Age of Onset Blood Clots Mother other (stomach ulcer) Mother Hypertension Mother Skin Cancer Father No Known Problems Sister Skin Cancer Maternal Grandmother Breast Cancer Maternal Grandmother Ovarian cancer Maternal Grandmother Diabetes Maternal Grandmother Hypertension Maternal Grandfather Diabetes Maternal Grandfather Heart Maternal Grandfather Arthritis Paternal Grandmother Skin Cancer Paternal Grandfather other (throat cancer) Paternal Grandfather Social History Tobacco Use Smoking status: Never Smokeless tobacco: Never Vaping Use Vaping Use: Never used Substance Use Topics Alcohol use: Not Currently Drug use: Never Current Outpatient Medications Medication Sig multivitamin (CLASSIC ) 28 mg iron- 800 mcg tab(s) Take 1 tablet by mouth once daily. acetaminophen (TYLENOL EXTRA STRENGTH ORAL) Take by mouth. ALBUTEROL INHALATION Inhale as instructed. (Patient not taking: Reported on 04/01/2022) No current facility-administered medications for this visit. Allergies As of Date: 04/01/2022 Allergen Noted Reaction HOUSE DUST 10/22/2021 Other: See Comments Fully Assessed 03/17/2022 REVIEW OF SYSTEMS Denies history of anxiety, bone diseases Allergies and current medication updated:Yes EXAM: BP 122/78 Wt 202 lb (91.6kg) LMP 04/17/2021 GENERAL: pleasant, female in no apparent distress CHEST: Normal inspiratory effort NEURO: alert and oriented x3,exam grossly non-focal ASSESSMENT/PLAN: 1. General counseling and advice for contraceptive management - ICD9: V25.09, ICD10: Z30.09 (primary diagnosis) - discussed R/B/A of Depo Provera including weight gain, unscheduled bleeding, temporary decrease in bone mass density and delayed fertility. Discussed that Depo Provera has not been shown to decrease breast milk. - MEDROXYPROGESTERONE 150 MG/ML INTRAMUSCULAR SUSPENSION 2. Initiation of Depo Provera - ICD9: V25.02, ICD10: Z30.013 - MEDROXYPROGESTERONE 150 MG/ML INTRAMUSCULAR SUSPENSION Pt to make nurse visit for administration. Follow-up as needed. Candice Valle APRN.LUIGI I spent a total of 20 minutes on the date of the service which included preparing to see the patient, [id number] patient care, completing clinical documentation, obtaining and/or reviewing separately obtained history, performing a medically appropriate examination, counseling and educating the patient/family/caregiver, and ordering medications, tests, or procedures. documented in this encounter [facility] 04-01-2022 Miscellaneous Notes Patient returned call. Will keep appointment to discuss Depo and receive prescription. Patsy Live RN Left message for patient to call office. Patsy Live RN Unless she knows the RBA of Depo Provera and can state them to you - unscheduled bleeding, temporary decrease in bone mass density and delayed fertility and feels comfortable starting it, she should keep her appt today to discuss and obtain a prescription. Candice Valle APRN.LUIGI Patient is scheduled today at 4 PM for IUD insertion. States she is not comfortable with getting the IUD. Would like Depo. Has not been on Depo before. Does patient need counseling prior to prescribing? Did not cancel appointment in case she needs to come in to discuss. Patsy Live RN documented in this encounter [facility] 03-17-2022 History of Present illness Narrative VISIT Iron Hunt is a 21 year old year old here for visit. Delivery Summary: ROS/ Recovery: Feeding: Breast feeding problems: mastitis last week- still being treated. Menses since delivery: spotting Menstrual pattern prior to : Regular periods [place] since delivery: Not resumed Depression: denies symptoms of depression. OB Depression and Anxiety Screening- This Encounter (since 03/16/2022) Over the past 2 weeks have you felt down, depressed, or hopeless? Negative Over the past two weeks, have you felt little interest or pleasure in doing things? Negative Feeling nervous, anxious or on edge 0-Not at all Not being able to stop or control worrying 0-Not al all Anxiety Pre-Screening Total (If >/= 3 additional questions will be reviewed) 0 Emotional support: Yes Bowel symptoms: Negative for abdominal discomfort, blood in stools or black stools and change in bowel habits Abdomen: N/A Bladder symptoms: No dysuria, gross hematuria, urinary frequency, urinary urgency, or incontinence Other issues: None Last Pap: NA PAST MEDICAL HISTORY Diagnosis Date Acne vulgaris Chlamydia 06/03/2022 Exercise-induced asthma Migraine PAST SURGICAL HISTORY Procedure Laterality Date PAST SURGICAL HISTORY OF dental surgery TONSILLECTOMY & ADENOIDECTOMY <AGE 13 FAMILY HISTORY Problem Relation Age of Onset Blood Clots Mother other (stomach ulcer) Mother Hypertension Mother Skin Cancer Father No Known Problems Sister Skin Cancer Maternal Grandmother Breast Cancer Maternal Grandmother Ovarian cancer Maternal Grandmother Diabetes Maternal Grandmother Hypertension Maternal Grandfather Diabetes Maternal Grandfather Heart Maternal Grandfather Arthritis Paternal Grandmother Skin Cancer Paternal Grandfather other (throat cancer) Paternal Grandfather Social History Tobacco Use Smoking status: Never Smokeless tobacco: Never Vaping Use Vaping Use: Never used Substance Use Topics Alcohol use: Not Currently Drug use: Never PHYSICAL EXAMINATION: BP 120/76 Wt 197 lb (89.4kg) LMP 04/17/2021 GENERAL: pleasant, female in no apparent distress HEENT: Normocephalic, atraumatic, mucus membranes moist, and no lesions NECK: Supple, full range of motion, no adenopathy, and thyroid normal DERMATOLOGY: Normal, without lesions, non-icteric, and non-hirsute BREAST: RIGHT BREAST- no erythema mild tenderness - small firm area 2:00. ABDOMEN: soft, non-tender, and no masses. INCISION: N/A PELVIC: external genitalia normal, normal Bartholin's glands, urethra, [place]'s glands, no vulvar lesions, no cervical lesions, good vaginal support, physiologic discharge present, normal appearing perineal body and perianal region BIMANUAL: uterus normal size, shape and consistency, no adnexal masses, and non-tender NEURO: alert and oriented x3,exam grossly non-focal EXTREMITIES: normal ASSESSMENT AND PLAN: 21 year old status post with normal course. Mastitis resolving. Contraception plan: IUD - Mirena Follow up: RTC for insertion of IUD Deana Waite MD documented in this encounter [facility] 03-11-2022 History of Present illness Narrative Obstetric History T1 L1 SAB0 IAB0 Ectopic0 Multiple0 Live Births1 Name of Baby 1: Dawna Date: 02/02/22 GA: 39w6d Delivery: Vaginal, Spontaneous Apgar1: Not recorded Apgar5: Not recorded Living: Living Iron Hunt is a 21 year old female who presents for problem visit . HPI: Patient presents with right sided breast redness & pain. She is pumping every 3-3.5 hours. OB History T1 L1 SAB0 IAB0 Ectopic0 Multiple0 Live Births1 Car Changer History LMP: 04/17/2021, Recent Age at Menarche: Age at First : Age at Menopause: Car Changer History Comments: Sexual Activity: Yes; Male Contraception: No contraception data on record PAST MEDICAL HISTORY Diagnosis Date Acne vulgaris Chlamydia 06/03/2022 Exercise-induced asthma Migraine PAST SURGICAL HISTORY Procedure Laterality Date PAST SURGICAL HISTORY OF dental surgery TONSILLECTOMY & ADENOIDECTOMY <AGE 13 FAMILY HISTORY Problem Relation Age of Onset Blood Clots Mother other (stomach ulcer) Mother Hypertension Mother Skin Cancer Father No Known Problems Sister Skin Cancer Maternal Grandmother Breast Cancer Maternal Grandmother Ovarian cancer Maternal Grandmother Diabetes Maternal Grandmother Hypertension Maternal Grandfather Diabetes Maternal Grandfather Heart Maternal Grandfather Arthritis Paternal Grandmother Skin Cancer Paternal Grandfather other (throat cancer) Paternal Grandfather Social History Tobacco Use Smoking status: Never Smokeless tobacco: Never Vaping Use Vaping Use: Never used Substance Use Topics Alcohol use: Not Currently Drug use: Never Current Outpatient Medications Medication Sig multivitamin (CLASSIC ) 28 mg iron- 800 mcg tab(s) Take 1 tablet by mouth once daily. ALBUTEROL INHALATION Inhale as instructed. magnesium oxide (MAG-OX) 400 mg (241.3 mg magnesium) tablet Take 1 tablet by mouth once daily. (Patient not taking: Reported on 01/29/2022 ) cetirizine-pseudoephedrine (ZYRTEC-D) 5-120 mg per tablet Take 1 tablet by mouth twice daily. aspirin, enteric coated (ASPIRIN, ENTERIC COATED) 81 mg EC tablet Take 81 mg by mouth once daily. (Patient not taking: Reported on 02/08/2022 ) acetaminophen (TYLENOL EXTRA STRENGTH ORAL) Take by mouth. No current facility-administered medications for this visit. Allergies As of Date: 03/11/2022 Allergen Noted Reaction HOUSE DUST 10/22/2021 Other: See Comments Fully Assessed 03/11/2022 REVIEW OF SYSTEMS Allergies and current medication updated:Yes EXAM: BP 118/72 Temp (Src) 101.3 (Right Tympanic) Wt 198 lb 9.6 oz (90.1kg) LMP 04/17/2021 GENERAL: pleasant, female in no apparent distress BREAST: soft, no dominant mass, normal nipple-areolar complex, no lymphadenopathy, and no nipple discharge; right breast - erythematous & mildly tender to touch; left breast - no erythema or tenderness CHEST: Normal inspiratory effort ASSESSMENT AND PLAN: 21yo female with mastitis Rx keflex given Advised on regular pumping every 2-3 hours Mastitis precautions reviewed F/u for PP visit & PRN Medical Decision Making: Problems: Low: Acute, uncomplicated illness or injury Risk: Moderate: Drug management Medical Decision Making Level: 3 - Low Catherine Hand MD documented in this encounter [facility] 02-08-2022 History of Present illness Narrative EARLY VISIT Iron Hunt is a 21 year old here for 1 week visit. Delivery Summary: - pre eclampsia without severe features ROS: General: Denies any fever or chills Hypertension Screening: Headache? Yes. Was it successfully treated with Tylenol? Yes. RUSSO rated 2-3/10 before medication, and 0/10 after medication Visual Changes? No Epigastric Pain? No Increased Swelling? No Taking any BP medications at home? No If applicable, monitoring BP at home? (If Yes, include results) Yes / 130's/80's Mood: normal Depression: denies symptoms of depression. OB Depression and Anxiety Screening- This Encounter (since 02/07/2022) Over the past 2 weeks have you felt down, depressed, or hopeless? Negative Over the past two weeks, have you felt little interest or pleasure in doing things? Negative Feeling nervous, anxious or on edge 0-Not at all Not being able to stop or control worrying 0-Not al all Anxiety Pre-Screening Total (If >/= 3 additional questions will be reviewed) 0 Feeding: Breast feeding problems: None Bladder: No dysuria, gross hematuria, urinary frequency, urinary urgency, or incontinence Bowel symptoms: Negative for abdominal discomfort, blood in stools or black stools and change in bowel habits Abdomen: N/A Bleeding: light flow Bottom and Perineum: No issues Sleep: no sleep concerns, does not feel rested [place] since delivery: Not resumed Emotional support: Yes Exercise: N/A Other issues: None PHYSICAL EXAMINATION: BP 132/84 Wt 198 lb (89.8 kg) LMP 04/17/2021 Yes BMI 29.45 kg/m General: pleasant,female in no apparent distress. Skin warm and intact. Breast: Deferred Abdomen: Deferred /Incision: N/A Pelvic: Deferred Bimanual: Deferred ASSESSMENT AND PLAN: 1. 21 year old status post with normal course. 2. Contraception plan: Reinforced 6-week pelvic rest. Encouraged condom usage should patient deviate. 3. Education: resources provided - see MA/RN note 4. Pre eclampsia without severe features: BP's have been normal at home. BP today 132/84. RUSSO mild and improves without Tylenol. Ok to stop BP checks unless she develops RUSSO's or visual changes Follow up: Return to Clinic for 6 week visit and as needed Medical Decision Making Merlene Rangel DO documented in this encounter [facility] 01-29-2022 Miscellaneous Notes DM- Pt doing well today. Denies Vaginal Bleeding, Leaking fluid, or contractions. Pt reports good movement. Gentle membrane sweep today per patient request- narrow pelvic arch reviewed with patient. RTO 1 week. Labor and kick counts reviewed. Deana Waite MD documented in this encounter [facility] 01-29-2022 Kita Rutherford Ma - 01/29/2022 2:44 PM EDT SEQUENTIAL SCREENINGS The [facility] offers sequential screenings for women who are interested in screenings for chromosomal abnormalities and certain defects during a . The sequential screen combines ultrasound and blood tests to determine the risk of chromosomal abnormalities, including Down's Syndrome (Trisomy 21) and Trisomy 18, as well as open neural tube defects including spina bifida. Ultrasound examination is performed between 11 weeks and 13 weeks gestational age. Blood tests are drawn after the ultrasound and again later in the between 15 and 21 weeks gestational age. Please let your physician know if you are interested in this testing. It will require an appointment with our speech therapist technician. This is not an ultrasound performed by a physician in our office during a routine visit. SIGNS AND SYMPTOMS OF LABOR 1. Contractions every 10 minutes or more often 2. Clear, pink, or brownish fluid (water) leaking from vagina 3. Feeling that baby is pushing down, pressure 4. Low, dull backache 5. Cramps that feel like a period 6. Cramps with or without diarrhea If you notice any of the above symptoms, contact our office at [phone] and ask to speak with a nurse. After hours, you can call doctors registry at [phone] OR call [facility] at [phone] and ask to have the doctor premium card cancellation clerk paged. If you consider this an emergency, dial 5-0-2 or go to your nearest emergency department. NEED HELP? Are you dealing with a violent or abusive relationship? Are you a victim of rape or sexual assult? Call [facility] ([place]) 24 hour Crisis Hotline: 841.763.6986 or 406-794-9953. MANUAL Your Guide to a Healthy manual is now on-line. Visit [email or web address] to download your free copy documented in this encounter [facility] 01-22-2022 Miscellaneous Notes DM- Pt doing well today. Denies Vaginal Bleeding, Leaking fluid, or regular contractions. Pt reports good movement. Has some pressure. Kick counts and labor reviewed. RTO one week. Gentle membrane sweep per patient request. Deana Waite MD documented in this encounter [facility] 01-22-2022 Instructions Bhavna Moses MA - 01/22/2022 3:34 PM EDT SEQUENTIAL SCREENINGS The [facility] offers sequential screenings for women who are interested in screenings for chromosomal abnormalities and certain defects during a . The sequential screen combines ultrasound and blood tests to determine the risk of chromosomal abnormalities, including Down's Syndrome (Trisomy 21) and Trisomy 18, as well as open neural tube defects including spina bifida. Ultrasound examination is performed between 11 weeks and 13 weeks gestational age. Blood tests are drawn after the ultrasound and again later in the between 15 and 21 weeks gestational age. Please let your physician know if you are interested in this testing. It will require an appointment with our speech therapist technician. This is not an ultrasound performed by a physician in our office during a routine visit. SIGNS AND SYMPTOMS OF LABOR 1. Contractions every 10 minutes or more often 2. Clear, pink, or brownish fluid (water) leaking from vagina 3. Feeling that baby is pushing down, pressure 4. Low, dull backache 5. Cramps that feel like a period 6. Cramps with or without diarrhea If you notice any of the above symptoms, contact our office at [phone] and ask to speak with a nurse. After hours, you can call doctors registry at [phone] OR call [facility] at [phone] and ask to have the doctor premium card cancellation clerk paged. If you consider this an emergency, dial 9-1-0 or go to your nearest emergency department. NEED HELP? Are you dealing with a violent or abusive relationship? Are you a victim of rape or sexual assult? Call [facility] [place] ([facility] 24 hour Crisis Hotline: 513.773.2181 or 890-916-0346. MANUAL Your Guide to a Healthy manual is now on-line. Visit [email or web address] to download your free copy documented in this encounter [facility] 01-15-2022 Miscellaneous Notes Iron Hunt is a 21 year old female who presents at 37w2d Estimated Date of Delivery: 02/03/22 for a routine visit. Good movement. Occasional titi molina- no pain. Denies headache, visual changes, chest pain, shortness of breath, vaginal bleeding, leakage of fluid, or dysuria. Feeling well, no complaints. Reviewed timing of contractions and when to notify providers. Size equal to dates. Labor precautions reviewed. RTC in 1 week or sooner if needed. Kelsey Cortes APRN.CNM documented in this encounter [facility] 01-15-2022 Instructions Bhavna Moses MA - 01/15/2022 1:41 PM EDT Images from the original note were not included. Preparing for labor: Eat dates to promote spontaneous labor! Has an oxytocin-like effect on the body, leading to increased sensitivity of the uterus. Stimulates uterine contractions. Reduces hemorrhage the way oxytocin does. Date fruit contains saturated and unsaturated fatty acids such as oleic, linoleic, and linolenic acids, which are involved in saving and supplying energy and construction of prostaglandins. In addition, serotonin, tannin, and calcium in date fruit contribute to the contraction of smooth muscles of the uterus. Date fruit also has a laxative effect, which stimulates uterine contractions. Six dates per day is the magic number provided that you re eating smaller deglet noor dates. Deglet noor dates are about 1 inch long. Medjool dates can be up to 2 inches long. If you re eating medjool dates, you only need about 3 dates to reach the 75 grams recommended in the studies. Not sure which type of date you have in your refrigerator? It s probably a deglet noor. How to Eat Dates During Dates are a healthy and delicious snack, so how can you add them to your diet? Add dates during in this awesome oatmeal recipe. Add dates to replace sugar in your favorite recipe or to grace your homemade almond milk. Use dates and nuts to make an easy pie crust in the food processing plant manager. Add soaked dates to homemade nut butter for a sweet treat. Add dates to grace homemade salad dressing. Add dates during easily with these yummy (paleo friendly) bars made from dates. What Is Red Raspberry [place] Tea? Red raspberry leaf tea comes from the leaves of the red raspberry plant. This herbal tea has been used for centuries to support respiratory, digestive and uterine health, particularly during and childbearing years. While usually known as a female herb, red raspberry leaf tea can also help support the prostate and various stomach ailments in children. How It Can Help and Red raspberry leaf tea can help to make labor faster and reduce complications and interventions during . One study found that women who consumed RRL tea regularly are less likely to go overdue or give prematurely. These women may also be less likely to receive an artificial rupture of their membranes or require a section, forceps, or vacuum than the women in the control group. Red raspberry leaf has many other benefits to , , and too. How Much Red Raspberry [place] Tea to Drink? With your doctor or advertising operations coordinator s approval, start with 1 cup of red raspberry leaf tea per day starting in the second trimester. Watch for any uterine cramping or other reactions. If you don t experience any, you can talk to your healthcare provider about increasing to 2 cups per day. Again, watch for any uterine cramping. If you notice any, cut back on your dosage for two weeks and try again. Keep in mind, some moms have irritable uteruses and can only drink red raspberry leaf tea once they reach their due date because of uterine cramping. Is Red Raspberry [place] Tea the Same as Raspberry [place] Tea? How About Plain Old Raspberry Tea? Sometimes. You really need to look at the ingredients to be sure. Note that there is no difference between red raspberry leaf and raspberry leaf. [employer] or [employer] Raspberry [place] Tea are two good brands. The red raspberry leaf teas that we recommend are 100% red raspberry leaf. Other teas labeled as raspberry are often a blend of rosehips, hibiscus, raspberry leaves, and raspberry flavor. So they may not be as effective. The teas to avoid are raspberry-flavored herbal teas, which may have ingredients like hibiscus, geoffrey hips, apples, elderberries, natural and artificial raspberry flavors. Teas like this don t contain raspberry leaf at all and thus won t offer any of the potential benefits of RRLT outlined in this article. [employer] www.[employer] I named this 'circuit' after my friend Ct Talamantes, who shared and discussed it with me when I was working with a client whose labor seemed to be stalled out and no longer progressing... This circuit is useful to help get the baby lined up, ideally, in the Left Occiput Anterior (SAPNA) Position, both before labor begins and when some corrections need to be done during labor. Prenatally, this position set can help to rotate a baby. As a natural method of induction, this can help get things going if baby just needed a gentle nudge of position to set things off. To the best of my knowledge, this group of positions will not hurt a baby that is already lined up correctly. - Mandy Pearce Before you Begin..... This circuit takes at least 90 minutes to complete so clear your schedule and make mental preparations so you can relax in your environment. The second step requires a lot of pillows so gather them up before beginning Before starting, you should empty your bladder! Have a nice drink nearby, and make sure it has a straw! If you are having contractions, this circuit should bedone through contractions, try not to change positions between steps Step One: Open-knee Chest Stay in this position for 30 minutes, start in cat/cow, then drop your chest as low as you can to the bed or the floor and your bottom as high as you can. Knees should be fairly wide apart, and the angle between the torso/thighs should be wider than 90 degrees. Wiggle around, prop with lots of pillows and use this time to get totally relaxed. This position allows the baby to scoot out of the pelvis a bit and gives them room to rotate, shift their head position, etc. If the person finds it helpful,careful positioning with a rebozo under the belly, with gentle tension from a support person behindcan help maintain this position for the full 30minutes. Step Two: Exaggerated Left Side Lying Roll to your left side, bringing your top leg as high as possible and keeping your bottom leg straight. Roll forward as much as possible,again using a lot of pillows. Sink into the bed and relax some more. If you fall asleep, that's totally okay and you can stay there! If not, stay here for at least another half an hour. Try and get your top right leg up towards your head and get as rolled over onto your belly as much as possible. If you repeat the circuit during labor, try alternating left and right sides. We know the photo the left is actually right side... just flip the image in your head. Step Three: Moving and Lunges Lunge, walk stairs facing sideways, 2 at a time, (have a crate opener downstairs of you!), take a walk outside with one foot on the curb and the other on the street, sit on a ball and hula- anything that's upright and putting your pelvis in open, asymmetrical positions. Spend at least 30 minutes doing this one as well to give your baby a chance to move down. If you are lunging or stair or curb walking, you should lunge/walk/go up stairs in the direction that feels better to you. The hanna with the lunge is that the toes of the higher leg and mom's belly button should be at right angles. Do not lunge over your knee, that closes the pelvis. Ct Talamantes: Circuit Creator - [email or web address] Mandy Pearce CD, BDT (TEE), LCCE, FACCE: Supporting Content - [email or web address].[email or web address] Erika Hardy: Photography - [email or web address] Meenakshi Stuart CD/CDT (MAYE): Print and Inside Sales Manager - www.[employer] [employer] www.[employer] SEQUENTIAL SCREENINGS The [facility] offers sequential screenings for women who are interested in screenings for chromosomal abnormalities and certain defects during a . The sequential screen combines ultrasound and blood tests to determine the risk of chromosomal abnormalities, including Down's Syndrome (Trisomy 21) and Trisomy 18, as well as open neural tube defects including spina bifida. Ultrasound examination is performed between 11 weeks and 13 weeks gestational age. Blood tests are drawn after the ultrasound and again later in the between 15 and 21 weeks gestational age. Please let your physician know if you are interested in this testing. It will require an appointment with our speech therapist technician. This is not an ultrasound performed by a physician in our office during a routine visit. SIGNS AND SYMPTOMS OF LABOR 1. Contractions every 10 minutes or more often 2. Clear, pink, or brownish fluid (water) leaking from vagina 3. Feeling that baby is pushing down, pressure 4. Low, dull backache 5. Cramps that feel like a period 6. Cramps with or without diarrhea If you notice any of the above symptoms, contact our office at [phone] and ask to speak with a nurse. After hours, you can call doctors registry at [phone] OR call [facility] at [phone] and ask to have the doctor premium card cancellation clerk paged. If you consider this an emergency, dial 9--0 or go to your nearest emergency department. NEED HELP? Are you dealing with a violent or abusive relationship? Are you a victim of rape or sexual assult? Call [facility] ([place]) 24 hour Crisis Hotline: 952.478.8314 or 311-030-0047. MANUAL Your Guide to a Healthy manual is now on-line. Visit [email or web address] to download your free copy documented in this encounter [facility] 01-07-2022 Miscellaneous Notes Iron Hunt is a 21 year old female who presents at 36w1d for a routine visit. Good movement. Occasional contractions that feel like period cramps. Denies headache, visual changes, chest pain, shortness of breath, vaginal bleeding, leakage of fluid, or dysuria. Feeling well, no complaints. Brought written plan and reviewed with patient. Requests CE today for baseline. Size equal to dates. TAUS confirms cephalic ASSESSMENT/PLAN: 1. 36 weeks gestation of - ICD9: V22.2, ICD10: Z3A.36 (primary diagnosis) - URINE OB DIP B/O - ROUTINE, GROUP B STREP PCR - GC/CHLAMYDIA DNA DET - T VAGINALIS AMPLIFICATION 2. Encounter for supervision of normal first in third trimester - ICD9: V22.0, ICD10: Z34.03 Labor precautions and kick counts reviewed RTO- 1 week or sooner if needed Kelsey Cortes APRN.CNM documented in this encounter [facility] 01-07-2022 Instructions Tiki ArthurLA NENA hanna - 01/07/2022 3:10 PM EDT [phone] [facility] main number Speak with wire stitcher operator Ask for premium card cancellation clerk provider for CC to be paged SEQUENTIAL SCREENINGS The [facility] offers sequential screenings for women who are interested in screenings for chromosomal abnormalities and certain defects during a . The sequential screen combines ultrasound and blood tests to determine the risk of chromosomal abnormalities, including Down's Syndrome (Trisomy 21) and Trisomy 18, as well as open neural tube defects including spina bifida. Ultrasound examination is performed between 11 weeks and 13 weeks gestational age. Blood tests are drawn after the ultrasound and again later in the between 15 and 21 weeks gestational age. Please let your physician know if you are interested in this testing. It will require an appointment with our speech therapist technician. This is not an ultrasound performed by a physician in our office during a routine visit. SIGNS AND SYMPTOMS OF LABOR 1. Contractions every 10 minutes or more often 2. Clear, pink, or brownish fluid (water) leaking from vagina 3. Feeling that baby is pushing down, pressure 4. Low, dull backache 5. Cramps that feel like a period 6. Cramps with or without diarrhea If you notice any of the above symptoms, contact our office at [phone] and ask to speak with a nurse. After hours, you can call doctors registry at [phone] OR call [facility] at [phone] and ask to have the doctor premium card cancellation clerk paged. If you consider this an emergency, dial 9-1-6 or go to your nearest emergency department. NEED HELP? Are you dealing with a violent or abusive relationship? Are you a victim of rape or sexual assult? Call [facility] ([place]) 24 hour Crisis Hotline: 686.471.1107 or 267-730-7853. MANUAL Your Guide to a Healthy manual is now on-line. Visit [email or web address] Venita to download your free copy documented in this encounter [facility] 12-31-2021 Miscellaneous Notes RR- No VB/LOF. Good FM. No regular ctx, few BH. GBS next visit and recheck GC/CT and trich. some musculoskeletal discomfort, reassured. F/u in 1 week or prn. Jennifer Dugan MD documented in this encounter [facility] 12-31-2021 Instructions Concha Rutherford Ok - 12/31/2021 3:45 PM EDT SEQUENTIAL SCREENINGS The [facility] offers sequential screenings for women who are interested in screenings for chromosomal abnormalities and certain defects during a . The sequential screen combines ultrasound and blood tests to determine the risk of chromosomal abnormalities, including Down's Syndrome (Trisomy 21) and Trisomy 18, as well as open neural tube defects including spina bifida. Ultrasound examination is performed between 11 weeks and 13 weeks gestational age. Blood tests are drawn after the ultrasound and again later in the between 15 and 21 weeks gestational age. Please let your physician know if you are interested in this testing. It will require an appointment with our speech therapist technician. This is not an ultrasound performed by a physician in our office during a routine visit. SIGNS AND SYMPTOMS OF LABOR 1. Contractions every 10 minutes or more often 2. Clear, pink, or brownish fluid (water) leaking from vagina 3. Feeling that baby is pushing down, pressure 4. Low, dull backache 5. Cramps that feel like a period 6. Cramps with or without diarrhea If you notice any of the above symptoms, contact our office at [phone] and ask to speak with a nurse. After hours, you can call doctors registry at [phone] OR call [facility] at [phone] and ask to have the doctor premium card cancellation clerk paged. If you consider this an emergency, dial or go to your nearest emergency department. NEED HELP? Are you dealing with a violent or abusive relationship? Are you a victim of rape or sexual assult? Call [facility] ([place]) 24 hour Crisis Hotline: 320.288.3638 or 013-942-1623. MANUAL Your Guide to a Healthy manual is now on-line. Visit [email or web address] to download your free copy documented in this encounter [facility] 12-11-2021 Miscellaneous Notes Patient notified and voiced understanding of information and instructions below. Patient declines appointment for BP check. Patient states her parents have a BP machine at home and she will take it and call the office if it is elevated. Radha Garza RN Agree with advice. She can come today for BP check. She needs to start Magnesium. Take tylenol 1000mg q 6hrs, a little caffeine can help too and continue to stay hydrated. If she hasn't had eye exam recently I recommend that too. Patient calling with c/o RUSSO since Tue. History of migraines. Today, RUSSO pain rate of 3 out of 10. Took Tylenol at 1015 this morning. Has not improved yet. Denies vision changes or RUQ pain. Drinking x3 32 oz bottles of water a day. At her OB visit on 12/04, BOBBY recommended patient start taking Magnesium for headaches. She has not started taking. Headache has slightly improved since Tuesday night, but continues to linger. Please advise. Patsy Live RN documented in this encounter [facility] 12-01-2021 Miscellaneous Notes reviewed. Thanks. Jennifer Dugan MD Outside medical records received and to provider to review. documented in this encounter [facility] 11-20-2021 Miscellaneous Notes RR_ transfer of care. Was getting PN care at school. Staying here until after she has the baby. Labs in care everywhere. See progress note 1) Patient oriented to practice. 2) declines LARC at delivery, plans IUD after delivery 3) growthscan at 32 weeks info on birthing classes given Follow up in 4 weeks or sooner prn. documented in this encounter [facility] 11-20-2021 History of Present illness Narrative INITIAL OB ASSESSMENT OB Provider: Jennifer Dugan MD HPI: Iron Hunt is a 21 year old female here to establish Obstetrical Care. Patient's last menstrual period was 04/17/2021. from OB Dating Form. Complaints: some Bh cramping. OB History T0 L0 SAB0 IAB0 Ectopic0 Multiple0 Live Births0 Prior : never History of 4th degree laceration: No Patient's Risk Screening for delivery: History of abnormal pap: No Prior treatment for cervical dysplasia: none. History of STDs: chlamydia Tobacco use: No Caffeine use: occas Drug use: No Alcohol use: No Multivitamin with Folic acid: Yes Occupation: Student [employer] or heritage: No Would refuse blood transfusion if medically necessary: No No weight on file for this encounter. Patient BMI over 30? 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 cetirizine-pseudoephedrine (ZYRTEC-D) 5-120 mg per tablet Take 1 tablet by mouth twice daily. aspirin, enteric coated (ASPIRIN, ENTERIC COATED) 81 mg EC tablet Take 81 mg by mouth once daily. acetaminophen (TYLENOL EXTRA STRENGTH ORAL) Take by mouth. ALBUTEROL INHALATION Inhale as instructed. No current facility-administered medications on file prior to visit. Review of Systems: GENERAL: Negative for: Fever or Chills HEENT: Negative for: Headache, Impaired Vision, Ringing in Ears, Nosebleeds NECK: Negative for: Swelling, Pain, Stiffness RESPIRATORY: Negative for: Cough, Shortness of breath, Wheezing GASTROINTESTINAL: Positive for: Heartburn MUSCULOSKELETAL: Negative for: Muscle or joint pain, stiffness, Joint swelling NEUROLOGIC/PSYCHIATRIC: Negative for: Weakness, Paralysis, Numbness, Tingling, Tremor, Anxiety, Depression, Memory loss SKIN: Negative for: Rash, Itching GENITOURINARY: Negative for: vaginal itching, vaginal discharge, hematuria or dysuria PHYSICAL EXAM: LMP 04/17/2021 GENERAL: pleasant female in no apparent distress DERMATOLOGY: Normal, without lesions, non-icteric and non-hirsute NECK: Supple, full range of motion, no adenopathy and thyroid normal CHEST: Normal inspiratory effort BREAST: deferred ABDOMEN: soft, non-tender and no masses NEURO: alert and oriented x3,exam grossly non-focal PELVIS: deferred Clinical Pelvimetry: Limited OB ultrasound exam: not performed OB Risk Screening: Completed, no positive findings documented. ASSESSMENT: 21 year old at 29w2d wks gestational age Transfer of care PLAN: 1) Patient oriented to practice. 2) declines LARC at delivery, plans IUD after delivery 3) growthscan at 32 weeks info on birthing classes given Follow up in 4 weeks or sooner prn. Jennifer Dugan MD documented in this encounter [facility] 11-20-2021 Instructions Concha Rutherford Ma - 11/20/2021 10:26 AM EDT Please select the following link to access the [facility] Your Guide to a Healthy . [email or web address] documented in this encounter [facility] documented as of this encounter (statuses as of 03/17/2022) [facility]04-07-2022 History of Past illness Narrative* Problem Noted Date Resolved Date with care elsewhere, [facility] 10/22/2021 03/17/2022 Overview: 10/22/2021 Patient is currently being seen at [facility] in [facility], [place]. She is attending college at [employer]. 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 We have received her records from [facility] and they are sent to be scanned into the record. Patient states that she was last seen October 15 and has an upcoming appointment on October 29 to see her OB in [place]. Patient states the father the baby is involved. She plans on keeping the baby. TKRN Chlamydia trachomatis infection in 01/202203/17/2022 Overview: 10/22/2021ositive chlamydia screen on June 03, 2021. She had a test of cure on July 04, 2021 and it was negative. TKRN Family history of blood clots 10/22/2021 Overview: 2Patient states her mother developed blood clots in her lung at about the age of 40. Mother still taking blood thinners. Patient states no other family history of blood clots.Sara Flores RN documented as of this encounter (statuses as of 04/01/2022) [facility] History of Past illness Narrative* Problem Noted Date Resolved Date with care elsewhere, [facility] 10/22/2021 03/17/2022 Overview: 10/22/2021 Patient is currently being seen at [facility] in [facility], [place]. She is attending college at [employer]. 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 We have received her records from [facility] and they are sent to be scanned into the record. Patient states that she was last seen October 15 and has an upcoming appointment on October 29 to see her OB in [place]. Patient states the father the baby is involved. She plans on keeping the baby. TKRN Chlamydia trachomatis infection in 01/202203/17/2022 Overview: 10/22/2021ositive chlamydia screen on June 03, 2021. She had a test of cure on July 04, 2021 and it was negative. TKRN Family history of blood clots 10/22/2021 Overview: 10/22/2021atient states her mother developed blood clots in her lung at about the age of 40. Mother still taking blood thinners. Patient states no other family history of blood clots.Sara Flores RN documented as of this encounter (statuses as of 04/01/2022) [facility] History of Past illness Narrative* Problem Noted Date Resolved Date with care elsewhere, [facility] 10/22/2021 03/17/2022 Overview: 10/22/2021 Patient is currently being seen at [facility] in [facility], [place]. She is attending college at [employer]. 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 We have received her records from [facility] and they are sent to be scanned into the record. Patient states that she was last seen October 15 and has an upcoming appointment on October 29 to see her OB in [place]. Patient states the father the baby is involved. She plans on keeping the baby. TKRN Chlamydia trachomatis infection in 01/202203/17/2022 Overview: 2Positive chlamydia screen on June 03, 2021. She had a test of cure on July 04, 2021 and it was negative. TKRN Family history of blood clots 10/22/2021 Overview: 10/22/2021atient states her mother developed blood clots in her lung at about the age of 40. Mother still taking blood thinners. Patient states no other family history of blood clots.Sara Flores RN documented as of this encounter (statuses as of 04/02/2022) [facility] History of Past illness Narrative* Problem Noted Date Resolved Date with care elsewhere, [facility] 10/22/2021 03/17/2022 Overview: 10/22/2021 Patient is currently being seen at [facility] in [facility], [place]. She is attending college at [employer]. 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 We have received her records from [facility] and they are sent to be scanned into the record. Patient states that she was last seen October 15 and has an upcoming appointment on October 29 to see her OB in [place]. Patient states the father the baby is involved. She plans on keeping the baby. TKRN Chlamydia trachomatis infection in 01/202203/17/2022 Overview: 10/22/2021ositive chlamydia screen on June 03, 2021. She had a test of cure on July 04, 2021 and it was negative. TKRN Family history of blood clots 10/22/2021 Overview: 2Patient states her mother developed blood clots in her lung at about the age of 40. Mother still taking blood thinners. Patient states no other family history of blood clots.Sara Flores RN documented as of this encounter (statuses as of 06/24/2022) [facility] History of Past illness Narrative* Problem Noted Date Resolved Date with care elsewhere, [facility] 10/22/2021 03/17/2022 Overview: 10/22/2021 Patient is currently being seen at [facility] in [facility], [place]. She is attending college at [employer]. 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 We have received her records from [facility] and they are sent to be scanned into the record. Patient states that she was last seen October 15 and has an upcoming appointment on October 29 to see her OB in [place]. Patient states the father the baby is involved. She plans on keeping the baby. TKRN Chlamydia trachomatis infection in 01/202203/17/2022 Overview: 2Positive chlamydia screen on June 03, 2021. She had a test of cure on July 04, 2021 and it was negative. TKRN Family history of blood clots 10/22/2021 Overview: 10/22/2021atient states her mother developed blood clots in her lung at about the age of 40. Mother still taking blood thinners. Patient states no other family history of blood clots.Sara Flores RN documented as of this encounter (statuses as of 08/19/2022) [facility] History of Past illness Narrative* Problem Noted Date Resolved Date with care elsewhere, [facility] 10/22/2021 03/17/2022 Overview: 10/22/2021 Patient is currently being seen at [facility] in [facility], [place]. She is attending college at [employer]. 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 We have received her records from [facility] and they are sent to be scanned into the record. Patient states that she was last seen October 15 and has an upcoming appointment on October 29 to see her OB in [place]. Patient states the father the baby is involved. She plans on keeping the baby. TKRN Chlamydia trachomatis infection in 01/202203/17/2022 Overview: 2Positive chlamydia screen on June 03, 2021. She had a test of cure on July 04, 2021 and it was negative. TKRN Family history of blood clots 10/22/2021 Overview: 10/22/2021atient states her mother developed blood clots in her lung at about the age of 40. Mother still taking blood thinners. Patient states no other family history of blood clots.Sara Flores RN documented as of this encounter (statuses as of 08/19/2022) [facility] History of Past illness Narrative* Problem Noted Date Resolved Date with care elsewhere, [facility] 10/22/2021 03/17/2022 Overview: 10/22/2021 Patient is currently being seen at [facility] in [facility], [place]. She is attending college at [employer]. 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 We have received her records from [facility] and they are sent to be scanned into the record. Patient states that she was last seen October 15 and has an upcoming appointment on October 29 to see her OB in [place]. Patient states the father the baby is involved. She plans on keeping the baby. TKRN Chlamydia trachomatis infection in 01/202203/17/2022 Overview: 10/22/2021ositive chlamydia screen on June 03, 2021. She had a test of cure on July 04, 2021 and it was negative. TKRN Family history of blood clots 10/22/2021 Overview: 2Patient states her mother developed blood clots in her lung at about the age of 40. Mother still taking blood thinners. Patient states no other family history of blood clots.Sara Flores RN documented as of this encounter (statuses as of 09/24/2022) [facility] History of Past illness Narrative* Problem Noted Date Resolved Date with care elsewhere, [facility] 10/22/2021 03/17/2022 Overview: 10/22/2021 Patient is currently being seen at [facility] in [facility], [place]. She is attending college at [employer]. 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 We have received her records from [facility] and they are sent to be scanned into the record. Patient states that she was last seen October 15 and has an upcoming appointment on October 29 to see her OB in [place]. Patient states the father the baby is involved. She plans on keeping the baby. TKRN Chlamydia trachomatis infection in 01/202203/17/2022 Overview: 10/22/2021ositive chlamydia screen on June 03, 2021. She had a test of cure on July 04, 2021 and it was negative. TKRN Family history of blood clots 10/22/2021 Overview: 10/22/2021atient states her mother developed blood clots in her lung at about the age of 40. Mother still taking blood thinners. Patient states no other family history of blood clots.Sara Flores RN documented as of this encounter (statuses as of 11/01/2022) [facility] History of Past illness Narrative* Problem Noted Date Diagnosed Date Resolved Date with care elsewhere, antepartum 10/22/2021 03/17/2022 Overview: 10/22/2021 Patient is currently being seen at [facility] in [facility], [place]. She is attending college at [employer]. 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 We have received her records from [facility] and they are sent to be scanned into the record. Patient states that she was last seen October 15 and has an upcoming appointment on October 29 to see her OB in [place]. Patient states the father the baby is involved. She plans on keeping the baby. TKRN Chlamydia trachomatis infection in 03/17/2022 Overview: 10/22/2021ositive chlamydia screen on June 03, 2021. She had a test of cure on July 04, 2021 and it was negative. TKRN Family history of blood clots 10/22/2021 03/17/2022 Overview: 2Patient states her mother developed blood clots in her lung at about the age of 40. Mother still taking blood thinners. Patient states no other family history of blood clots.Sara Flores RN documented as of this encounter (statuses as of 03/29/2023) [facility] History of Past illness Narrative* Problem Noted Date Diagnosed Date Resolved Date with care elsewhere, antepartum 10/22/2021 03/17/2022 Overview: 10/22/2021 Patient is currently being seen at [facility] in [facility], [place]. She is attending college at [employer]. 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 We have received her records from [facility] and they are sent to be scanned into the record. Patient states that she was last seen October 15 and has an upcoming appointment on October 29 to see her OB in [place]. Patient states the father the baby is involved. She plans on keeping the baby. TKRN Chlamydia trachomatis infection in 03/17/2022 Overview: 10/22/2021ositive chlamydia screen on June 03, 2021. She had a test of cure on July 04, 2021 and it was negative. TKRN Family history of blood clots 10/22/2021 03/17/2022 Overview: 10/22/2021atient states her mother developed blood clots in her lung at about the age of 40. Mother still taking blood thinners. Patient states no other family history of blood clots.Sara Flores RN documented as of this encounter (statuses as of 05/17/2023) [facility] History of Past illness Narrative* Problem Noted Date Diagnosed Date Resolved Date with care elsewhere, antepartum 10/22/2021 03/17/2022 Overview: 10/22/2021 Patient is currently being seen at [facility] in [facility], [place]. She is attending college at [employer]. 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 We have received her records from [facility] and they are sent to be scanned into the record. Patient states that she was last seen October 15 and has an upcoming appointment on October 29 to see her OB in [place]. Patient states the father the baby is involved. She plans on keeping the baby. TKRN Chlamydia trachomatis infection in 03/17/2022 Overview: 10/22/2021ositive chlamydia screen on June 03, 2021. She had a test of cure on July 04, 2021 and it was negative. TKRN Family history of blood clots 10/22/2021 03/17/2022 Overview: 10/22/2021atient states her mother developed blood clots in her lung at about the age of 40. Mother still taking blood thinners. Patient states no other family history of blood clots.Sara Flores RN documented as of this encounter (statuses as of 08/24/2023) [facility]04-07-2022 Miscellaneous Notes* Quick Notes - Sara Flores RN - 10/22/2021 12:14 PM EDT DISTANCE HEALTH VISIT This Team Access Model visit is a phone encounter. It required patient-provider interaction for themedical decision making as documented below. Patient is currently being seen at [facility] in [facility], [place]. She is attending college at [employer]. 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 We have received her records from [facility] and they are sent to be scanned into the record. Patient states that she was last seen October 15 and has an upcoming appointment on October 29 to see her OB in [place]. Patientstates the father the baby is involved. She plans on keeping the baby. Positive chlamydia screen onJune 03, 2021. She had a test of cure on July 04, 2021 and it was negative. Patient states her mother developed blood clots in her lung at about the age of 40. Mother still taking blood thinners. Patient states no other family history of blood clots.Sara Flores RN [facility] Miscellaneous Notes* Telephone Encounter - Radha Garza RN - 10/09/2021 1:02 PM EDT Patient notified and voiced understanding of below. Patient denies wanting an appointment today. Radha Garza RN * Telephone Encounter - Merlene Rangel MD - 10/09/2021 12:28 PM EDT Agree monitor for pain, vb, lof. If she has any of those things or if she is not feeling movement to call. Can offer her an appointment with me later today to check heart tones * Telephone Encounter - Radha Garza RN - 10/09/2021 11:22 AM EDT Patient 24w2d calling with concerns that her dog jumped on her LLQ of her abdomen. Patient denies any cramping, bleeding or leaking of fluid. Reassurance given and instructions on when to call. Do you have any further instructions. Patient will be transferring care to us on 12/09 from [place], however she is currently here in [place]. Radha Garza RN documented [facility]* Diagnosis with care elsewhere, antepartum- Primary Chlamydia trachomatis infection in mother during , antepartum Family history of blood clots Family history of other blood disorders [facility] Diagnosis with care elsewhere, antepartum- Primary Chlamydia trachomatis infection in mother during , antepartum Family history of blood clots Family history of other blood disorders Encounter for care in third trimester of first [facility]* Diagnosis with care elsewhere, antepartum- Primary 31 weeks gestation of state, incidental documented in this encounter [facility] note* Diagnosis 35 weeks gestation of - Primary state, incidental Encounter for supervision of normal first in third trimester Supervision of normal first documented in this encounter [facility] note* Diagnosis 36 weeks gestation of - Primary state, incidental Encounter for supervision of normal first in third trimester Supervision of normal first [facility]* Diagnosis 37 weeks gestation of - Primary state, incidental documented in this encounter [facility] note* Diagnosis Encounter for supervision of normal first in third trimester- Primary Supervision of normal first 38 weeks gestation of state, incidental documented in this encounter [facility] note* Diagnosis Encounter for supervision of normal first in third trimester- Primary Supervision of normal first 39 weeks gestation of state, incidental documented in this encounter [facility] note* Diagnosis Encounter for visit- Primary documented in this encounter [facility] note* Diagnosis Acute mastitis- Primary Inflammatory disease of breast [facility]* Diagnosis care and examination- Primary Routine follow-up Encounter for initial prescription of intrauterine contraceptive device (IUD) [facility]* Diagnosis General counseling and advice for contraceptive management- Primary Other general counseling and advice for contraceptive management Initiation of Depo Provera General counseling for initiation of other contraceptive measures [facility]* Diagnosis Initiation of Depo Provera- Primary General counseling for initiation of other contraceptive measures Encounter for management and injection of depo-Provera Surveillance of other previously prescribed contraceptive method [facility]* Diagnosis Encounter for surveillance of other contraceptive- Primary documented in this encounter [facility] note* Diagnosis URI, acute- Primary Acute upper respiratory infections of unspecified site [facility]* Diagnosis Encounter for surveillance of other contraceptive- Primary documented in this encounter [facility] note* Diagnosis Encounter for gynecological examination (general) (routine) without abnormal findings- Primary Screening for cervical cancer Screening for malignant neoplasm of the cervix Encounter for screening for human papillomavirus (HPV) Special screening examination for human papillomavirus (HPV) Encounter for initial prescription of contraceptive pills General counseling for prescription of oral contraceptives documented in this encounter [facility] note* Diagnosis Encounter for surveillance of contraceptive pills- Primary Surveillance of previously prescribed contraceptive pill documented in this encounter [facility] note* Diagnosis Sore throat- Primary Acute pharyngitis documented in this encounter [facility] note* Diagnosis URI, acute- Primary Acute upper respiratory infections of unspecified site documented in this encounter [facility] for referral (narrative)* Diagnostic Procedure Only (Routine) - Authorized Specialty Diagnoses / Procedures Referred By Jamar enciso Referred To Contact [facility] Diagnoses with care elsewhere, antepartum Chlamydia trachomatis infection in mother during , antepartum Family history of blood clots Encounter for care in third trimester of first Procedures OBSTETRIC ULTRASOUND WHI US PREG UTERUS AFTER 1ST TRIMEST GESTATION Jennifer Dugan MD [address] [place] [address] [facility] [address] [place] [address] Referral ID Status Reason Start Date Expiration Date Visits Requested Visits Authorized [id number] Authorized Auto-Generat ed Referral 11/20/2021 11/20/2022 1 1 [facility] for referral (narrative)* Outpatient Procedure (Routine) - Pending Review Specialty Diagnoses / Procedures Referred By Jamar enciso Referred To Contact [facility] Diagnoses Encounter for initial prescription of intrauterine contraceptive device (IUD) Procedures INSERT INTRAUTERINE DEVICE LEVONORGESTREL IU 52MG 5 YR INSERT INTRAUTERINE DEVICE Deana Ng MD [address] [place] [address] [facility] [address] [place] [address] Referral ID Status Reason Start Date Expiration Date Visits Requested Visits Authorized [id number] Pending Review Auto-Generat ed Referral 03/17/2022 03/17/2023 1 1 [facility] Summary Purpose Family History No Family History Records FoundNo Family History Records FoundNo Family History Records FoundNo Family History Records Found Advance Directives No Advanced Directives Records FoundNo Advanced Directives Records FoundNo Advanced Directives Records FoundNo Advanced Directives Records Found Health Concerns Problem Noted Date OB Reminders 11/20/2021 Problem Noted Date OB Reminders 11/20/2021 Problem Noted Date OB Reminders 11/20/2021 Problem Noted Date OB Reminders 11/20/2021 Problem Noted Date OB Reminders 11/20/2021 Problem Noted Date OB Reminders 11/20/2021 Problem Noted Date OB Reminders 11/20/2021 Problem Noted Date OB Reminders 11/20/2021 Problem Noted Date OB Reminders 11/20/2021 Problem Noted Date OB Reminders 11/20/2021 Problem Noted Date OB Reminders 11/20/2021 Problem Noted Date OB Reminders 11/20/2021 Medications Administered Section Active Administered Medications - up to 3 most recent administrations Medication Order MAR Action Action Date Dose Rate Site medroxyPROGESTERone 150 mg injection (DEPO-PROVERA) 150 mg, INTRAMUSCULAR, EVERY 12 WEEKS, 4 doses, First dose on Tue04/02/22 at 1530, Last dose on Tue12/10/22 at 1530, Hazardous Potential Reproductive Risk Drug: Use appropriate PPE. Given 04/02/2022 10:10 AM EDT 150 mg Buttocks, Left Active Administered Medications - up to 3 most recent administrations Medication Order MAR Action Action Date Dose Rate Site medroxyPROGESTERone 150 mg injection (DEPO-PROVERA) 150 mg, INTRAMUSCULAR, EVERY 12 WEEKS, 4 doses, First dose on Tue04/02/22 at 1530, Last dose on Tue12/10/22 at 1530, Hazardous Potential Reproductive Risk Drug: Use appropriate PPE. Given 06/24/2022 10:01 AM EST 150 mg Buttocks, Right Active Administered Medications - up to 3 most recent administrations Medication Order MAR Action Action Date Dose Rate Site medroxyPROGESTERone 150 mg injection (DEPO-PROVERA) 150 mg, INTRAMUSCULAR, EVERY 12 WEEKS, 4 doses, First dose on Tue04/02/22 at 1530, Last dose on Tue12/10/22 at 1530, Hazardous Potential Reproductive Risk Drug: Use appropriate PPE. Given 09/23/2022 3:38 PM EST 150 mg Buttocks, Left Additional Source Comments INFORMATION SOURCE (unrecogn ized section and content) DATE CREATED AUTHOR AUTHOR'S ORGANIZ ATION 08/11/2023 [facility] DATE CREATED AUTHOR AUTHOR'S ORGANIZ ATION 08/21/2023 [facility] DATE CREATED AUTHOR AUTHOR'S ORGANIZ ATION 08/25/2023 [facility] Source Comments (unrecognize d section and content) In the event this informatio n is protected by the Federal Confidentiality of Alcohol and Drug Abuse Patient Records regulations: The Federal rules restrict any use of the information to criminally investigate or prosecute any alcohol or drug abuse patient.[facility] the event this information is protected by the Federal Confidentiality of Alcohol and Drug Abuse Patient Records regulations: The Federal rules restrict any use of the information to criminally investigate or prosecute any alcohol or drug abuse patient.[facility] HospitalIn the event this information is protected by the Federal Confidentiality of Alcohol and Drug Abuse Patient Records regulations: The Federal rules restrict any use of the information to criminally investigate or prosecute any alcohol or drug abuse patient.[facility] HospitalIn the event this information is protected by the Federal Confidentiality of Alcohol and Drug Abuse Patient Records regulations: The Federal rules restrict any use of the information to criminally investigate or prosecute any alcohol or drug abuse patient.[facility] [facility] HospitalIn the event this information is protected by the Federal Confidentiality of Alcohol and Drug Abuse Patient Records regulations: The Federal rules restrict any use of the information to criminally investigate or prosecute any alcohol or drug abuse patient.[facility] HospitalIn the event this information is protected by the Federal Confidentiality of Alcohol and Drug Abuse Patient Records regulations: The Federal rules restrict any use of the information to criminally investigate or prosecute any alcohol or drug abuse patient.[facility] HospitalIn the event this information is protected by the Federal Confidentiality of Alcohol and Drug Abuse Patient Records regulations: The Federal rules restrict any use of the information to criminally investigate or prosecute any alcohol or drug abuse patient.[facility] HospitalIn the event this information is protected by the Federal Confidentiality of Alcohol and Drug Abuse Patient Records regulations: The Federal rules restrict any use of the information to criminally investigate or prosecute any alcohol or drug abuse patient.[facility] HospitalIn the event this information is protected by the Federal Confidentiality of Alcohol and Drug Abuse Patient Records regulations: The Federal rules restrict any use of the information to criminally investigate or prosecute any alcohol or drug abuse patient.[facility] HospitalIn the event this information is protected by the Federal Confidentiality of Alcohol and Drug Abuse Patient Records regulations: The Federal rules restrict any use of the information to criminally investigate or prosecute any alcohol or drug abuse patient.[facility] HospitalIn the event this information is protected by the Federal Confidentiality of Alcohol and Drug Abuse Patient Records regulations: The Federal rules restrict any use of the information to criminally investigate or prosecute any alcohol or drug abuse patient.[facility] HospitalIn the event this information is protected by the Federal Confidentiality of Alcohol and Drug Abuse Patient Records regulations: The Federal rules restrict any use of the information to criminally investigate or prosecute any alcohol or drug abuse patient.[facility] HospitalIn the event this information is protected by the Federal Confidentiality of Alcohol and Drug Abuse Patient Records regulations: The Federal rules restrict any use of the information to criminally investigate or prosecute any alcohol or drug abuse patient.[facility] HospitalIn the event this information is protected by the Federal Confidentiality of Alcohol and Drug Abuse Patient Records regulations: The Federal rules restrict any use of the information to criminally investigate or prosecute any alcohol or drug abuse patient.[facility] HospitalIn the event this information is protected by the Federal Confidentiality of Alcohol and Drug Abuse Patient Records regulations: The Federal rules restrict any use of the information to criminally investigate or prosecute any alcohol or drug abuse patient.[facility] HospitalIn the event this information is protected by the Federal Confidentiality of Alcohol and Drug Abuse Patient Records regulations: The Federal rules restrict any use of the information to criminally investigate or prosecute any alcohol or drug abuse patient.[facility] HospitalIn the event this information is protected by the Federal Confidentiality of Alcohol and Drug Abuse Patient Records regulations: The Federal rules restrict any use of the information to criminally investigate or prosecute any alcohol or drug abuse patient.[facility] HospitalIn the event this information is protected by the Federal Confidentiality of Alcohol and Drug Abuse Patient Records regulations: The Federal rules restrict any use of the information to criminally investigate or prosecute any alcohol or drug abuse patient.[facility] HospitalIn the event this information is protected by the Federal Confidentiality of Alcohol and Drug Abuse Patient Records regulations: The Federal rules restrict any use of the information to criminally investigate or prosecute any alcohol or drug abuse patient.[facility] HospitalIn the event this information is protected by the Federal Confidentiality of Alcohol and Drug Abuse Patient Records regulations: The Federal rules restrict any use of the information to criminally investigate or prosecute any alcohol or drug abuse patient.[facility] HospitalIn the event this information is protected by the Federal Confidentiality of Alcohol and Drug Abuse Patient Records regulations: The Federal rules restrict any use of the information to criminally investigate or prosecute any alcohol or drug abuse patient.[facility] HospitalIn the event this information is protected by the Federal Confidentiality of Alcohol and Drug Abuse Patient Records regulations: The Federal rules restrict any use of the information to criminally investigate or prosecute any alcohol or drug abuse patient.[facility] HospitalIn the event this information is protected by the Federal Confidentiality of Alcohol and Drug Abuse Patient Records regulations: The Federal rules restrict any use of the information to criminally investigate or prosecute any alcohol or drug abuse patient.[facility] HospitalIn the event this information is protected by the Federal Confidentiality of Alcohol and Drug Abuse Patient Records regulations: The Federal rules restrict any use of the information to criminally investigate or prosecute any alcohol or drug abuse patient.[facility] Reason for Visit (unrecogniz ed section and content) Specialty Diagnoses / Procedures Referred By Jamar t Referred To Contact [facility] Diagnoses Depo injection Procedures DEPO PROVERA INJECTION Candice Valle, CAROL.ALTERATIONS WORKROOM CLERK [address] [place] [address] Wstr, Nurse Elevator Technician [facility] [address] [place] [address] Referral ID Status Reason Start Date Expiration Date Visits Re quested Visits Authorized [id number] Closed 04/02/2022 07/17/2022 2 2 Reason Comments Care Reason Comments Initial OB Visit transfer of care Reason Comments Received Outside Medical Records Reason Comments US Specialty Diagnoses / Procedures Referred By Contac t Referred To Contact [facility] Diagnoses with care elsewhere, antepartum Chlamydia trachomatis infection in mother during , antepartum Family history of blood clots Encounter for care in third trimester of first Procedures OBSTETRIC ULTRASOUND WHI US PREG UTERUS AFTER 1ST TRIMEST 1/1ST GESTATION Jennifer Dugan MD [address] [place] [address] [facility] [address] [place] [address] Referral ID Status Reason Start Date Expiration Date V isits Requested Visits Authorized [id number] Closed Auto-Generate d Referral 11/20/2021 11/20/2022 1 1 Reason Comments OB Headache Reason Onset Date Comments Care 12/31/2021 Reason Onset Date Comments Care 01/07/2022 Reason Onset Date Comments Care 01/15/2022 Reason Onset Date Comments Care 01/22/2022 Reason Onset Date Comments Care 01/29/2022 Reason Comments Breast Problem Reason Comments Care Reason Comments Patient Question Reason Onset Date Comments Depo Provera Injection 04/02/2022 Referral ID Status Reason Start Date Expiration Date V isits Requested Visits Authorized [id number] Authorized 04/02/2022 07/17/2022 2 2 Reason Comments Headache Pt reported nasal co ngestion, pressure bilateral ears, x3 days. Reason Onset Date Comments Nurse Visit Depo Provera Injection 09/23/2022 Patient b rought own med Reason Comments Well Woman Reason Comments Contraception Follow up Reason Comments Sore Throat bodyaches, headache x 3 days Reason Comments Fever Fever, congestion, f atigue and ST x 2 days Care Teams (unrecognized sec tion and content) FOR RECORDS PERTAINING TO PATIENTS WHO ARE OR HAVE BEEN ENROLLED IN A CHEMICAL DEPENDENCY/SUBSTANCEABUSE PROGRAM, SOME INFORMATION MAY BE OMITTED. This clinical summary was aggregated from multiple sources. Caution should be exercised in using it in the provision of clinical care. This summary normalizes information from multiple sources, and as a consequence, information in this document may materially change the coding, format and clinical context of patient data. In addition, data may be omitted in some cases. CLINICAL DECISIONS SHOULD BE BASED ON THE PRIMARY CLINICAL RECORDS. [employer] provides no warranty or guarantee of the accuracy or completeness of information in this document.
--- NOTE | 2023-09-18 19:54 | EKG12_ITS ---
Test Reason : DYSRHYTHMIA Blood Pressure : / mmHG Vent. Rate : 110 BPM Atrial Rate : 110 BPM P-R Int : 144 ms QRS Dur : 082 ms QT Int : 322 ms P-R-T Axes : 029 033 030 degrees QTc Int : 435 ms Sinus tachycardia Otherwise normal ECG Confirmed by Elfego Saunders ([id number]), web editor DANITA WHITLEY ([id number]) on 09/19/2023 10:37:59 AM Referred By: Confirmed By:Elfego Saunders
[2023-09-18 20:01] VITALS: BP 136/87; PULSE 98; RESP 18; TEMP 38.8; O2SAT 98
[2023-09-18 20:25] LABS: Absolute Lymphocyte Count 0.78 X10^3/uL (0.83-4.51); Basophil# 0.03 X10^3/uL; Basophil% 0.4 % (0-1); Eosinophil# 0.02 X10^3/uL; Eosinophils% 0.3 % (0-5); Hematocrit 41.9 % (37-47); Hemoglobin 13.6 g/dL (12.0-15.0); Lymphocyte # 0.78 X10^3/ul (0.83-4.51); Lymphocyte % 10.5 % (19-41); Mean Corp Hgb Conc 32.5 g/dL (32-36); Mean Corpuscular Hgb 27.4 pg (27.0-32.0); Mean Corpuscular Volume 84.3 fL (81-99); Mean Platelet Vol. 11.2 fl (6.2-12.0); Monocyte# 0.57 X10^3/uL; Monocyte% 7.7 % (0-10); NRBC Flagged by Analyzer 0 % (0-5); Neutrophil # 5.97 X10^3/uL (2.7-7.7); Neutrophil % 80.6 % (47-70); Platelet Count 257 K/mm3 (150-450); RBC Distribution Width SD 39.9 fl (35.1-43.9); Red Blood Count 4.97 M/mm3 (4.2-5.4); White Blood Count 7.4 K/mm3 (4.4-11.0)
[2023-09-18] MEDS: Ondansetron 4 MG/2 ML Vial IV (20:34)
[2023-09-18] MEDS: Ketorolac 15 MG/ML Vial IV (20:34)
[2023-09-18] MEDS: 0.9% Normal Saline (1000mL) 1,000 ML 1000 ML IV (20:35)
[2023-09-18 20:43] LABS: AST(SGOT) 20 U/L (15-37); Alanine Aminotransfer ALT/SGPT 15 U/L (13-56); Albumin, Serum 3.5 g/dL (3.2-5.0); Alkaline Phosphatase 85 U/L (45-117); Anion Gap 7 (5-15); BUN 15 mg/dL (7-18); BUN/Creat Ratio 20.4 RATIO (10-20); Bilirubin, Direct 0.16 mg/dL (0.00-0.30); Calcium,Total 8.6 mg/dL (8.5-10.1); Chloride 111 mmol/L (98-107); Creatinine, Serum 0.74 mg/dL (0.55-1.02); EST Glomerular Filtration Rate 105 mL/min (>60); Est Glom Filt Rate - Afr Amer 127 mL/min (>60); Estimated Creatinine Clearance 144.59 ml/min; Globulin 3.3 g/dL (2.2-4.2); Glucose 96 mg/dL (74-106); Lipase 18 U/L (13-75); Protein, Total 6.8 g/dL (6.4-8.2); Sodium Level 140 mmol/L (136-145)
[2023-09-18 21:00] VITALS: BP 126/87; PULSE 97; RESP 18; TEMP 37.6; O2SAT 97
[2023-09-18] MEDS: Acetaminophen 325 MG Tablet 650 MG PO (21:12)
[2023-09-18 21:56] LABS: Bacteria 0 SEEN /hpf (None Seen)
[2023-09-18 21:59] LABS: Color, Urine Yellow (Yellow); Glucose, Dipstick Normal (Normal); Leukocyte Esterase-Dipstick 25 /ul (Negative); Nitrite-Dipstick Negative (Negative); Occult Blood-Urine 250 /ul (Negative); Protein-Dipstick 30 mg/dl (Negative); Urine Clarity Clear (Clear); Urine Urobilinogen 1 mg/dl (Normal)
[2023-09-18 22:00] VITALS: BP 125/86; PULSE 91; RESP 18; TEMP 37.2; O2SAT 98
[2023-09-18 22:00] LABS: Urine Bilirubin Dipstick 1 mg/dL (Negative)
[2023-09-18 22:01] LABS: Ketone-Dipstick 150 mg/dl (Negative)
[2023-09-18 22:05] LABS: Red Blood Cells-Urine 0-5 SEEN /hpf (0-5); Squamous Epithelial Cells - UA 0-5 SEEN /hpf (5-10); White Blood Cells 0-5 SEEN /hpf (0-5)
[2023-09-18 22:06] LABS: Internal QC Validated? YES +Cl - CLEAR BKGD; Mucous, Urine 1+ /hpf (<or=2+); Pregnancy, Urine Negative Negative
[2023-09-18 22:43] VITALS: BP 125/75; PULSE 66; RESP 14; TEMP 37.2; O2SAT 99
== END 2023-09-18 22:43 | disposition home or self-care (01) ==
PROVIDERS: Emergency Provider Emergency Medicine; PCP Family Medicine; Visit Provider Emergency Medicine
DX: R11.2 Nausea with vomiting, unspecified (principal); F41.9 Anxiety disorder, unspecified; R19.7 Diarrhea, unspecified; Z79.899 Other long term (current) drug therapy; R50.9 Fever, unspecified
CPT/HCPCS: 80048; 80076; 81001; 81025; 83690; 85025; 87631; 93005; 96361; 96374; 96375; 99283; J7030; A4216; J2405

== ENCOUNTER 2024-07-02 02:57 | Emergency (ER) | payer OTHER, SELFPAY ==
[2024-07-02 02:57] VITALS: BP 118/85; PULSE 113; RESP 16; TEMP 36.6; O2SAT 100; BMI 33.1
[2024-07-02 03:31] LABS: Absolute Lymphocyte Count 0.86 X10^3/uL (0.83-4.51); Absolute Neutrophil Count 13.4 X10^3/uL (2.0-7.7); Basophil# 0.05 X10^3/uL; Basophil% 0.3 % (0-1); Eosinophil# 0.13 X10^3/uL; Eosinophils% 0.8 % (0-5); Hematocrit 42.7 % (37-47); Hemoglobin 13.9 g/dL (12.0-15.0); Lymphocyte # 0.86 X10^3/ul (0.83-4.51); Lymphocyte % 5.6 % (19-41); Mean Corp Hgb Conc 32.6 g/dL (32-36); Mean Corpuscular Hgb 27.1 pg (27.0-32.0); Mean Corpuscular Volume 83.2 fL (81-99); Mean Platelet Vol. 10.9 fl (6.2-12.0); Monocyte# 0.89 X10^3/uL; Monocyte% 5.8 % (0-10); NRBC Flagged by Analyzer 0 % (0-5); Neutrophil # 13.39 X10^3/uL (2.7-7.7); Neutrophil % 87.1 % (47-70); Platelet Count 290 K/mm3 (150-450); RBC Distribution Width CV 13.6 % (11.6-14.6); RBC Distribution Width SD 41.5 fl (35.1-43.9); Red Blood Count 5.13 M/mm3 (4.2-5.4); White Blood Count 15.4 K/mm3 (4.4-11.0)
[2024-07-02] MEDS: 0.9% Normal Saline (1000mL) 1,000 ML 999 ML IV (03:34)
[2024-07-02] MEDS: Ondansetron 4 MG/2 ML Vial IV (03:34)
[2024-07-02] MEDS: Diphenoxylate/Atrop 1 Tablet 2 TABLET PO (03:34)
--- NOTE | 2024-07-02 03:40 | EX.ED.DYSGE1 ---
HPI History of Present Illness Chief Complaint: Nausea/Vomiting/Diarrhea Informant: patient Narrative Narrative: Patient is a 24-year-old female with past medical history of exercise-induced asthma and anxiety. She states multiple family members have been sick with vomiting and diarrhea. She states that she thought it missed her but that today around 7 PM she developed generalized abdominal discomfort with multi bouts of nausea vomiting and diarrhea. She denies any blood or discoloration to either. She denies any recent antibiotic use travel outside the country camping activities or livestock exposure. She states she has been unable to keep food or fluid down and is concerned about dehydration and secondary to this comes in for evaluation. [facility] Medical History Anxiety Vaginal delivery Preeclampsia Chlamydia infection affecting Asthma Home Medications ?Medication ?Instructions ?Recorded ?Last Taken ?Type Albuterol Sulfate [Proair Hfa] 1 inhaler PO PRN PRN Asthma 08/13/14 01/29/22 12:00 History hydroxyzine HCl 25 mg tablet 25 mg PO Q8H PRN anxiety 05/21/23 Unknown History diphenoxylate-atropine 2.5 1 tab PO 4X/DAY PRN diarrhea 5 07/02/24 Unknown Rx mg-0.025 mg tablet (Lomotil) days #20 tabs ondansetron 4 mg disintegrating 4 mg PO TID PRN nausea and 07/02/24 Unknown Rx tablet vomiting #21 tabs Allergy/AdvReac Type Severity Reaction Status Date / Time No Known Allergies Allergy Verified 05/21/23 03:27 Family History Other Diabetes Heart disease Surgical History History of tonsillectomy Social History Smoking Status: Never smoker ROS ROS ED Constitutional Constitutional ED: Denies chills or fever(s) ENT ENT ED: Denies sore throat Cardiovascular Cardiovascular: Reports racing heartbeat; Denies chest pain Respiratory/Chest Respiratory/Chest: Denies cough or dyspnea Gastrointestinal Gastrointestinal: Reports diarrhea, nausea and vomiting; Denies abdominal pain Genitourinary Genitourinary ED: Denies dysuria or urinary frequency Musculoskeletal Musculoskeletal: Denies myalgias Integumentary Denies rash Neurologic Neurologic: Denies headache(s) Hematologic/Lymphatic Hematologic/Lymphatic: Denies easy bleeding or easy bruising EXAM Physical Exam Const Vital Signs: 07/02/24 02:57 07/02/24 03:59 07/02/24 04:48 Temperature 98 F 97.6 F L 99.1 F Temperature Source Oral Oral Oral Pulse Rate 113 H 96 112 H Respiratory Rate 16 18 18 Blood Pressure 118/85 H 145/90 H 121/76 H Blood Pressure Mean 96 108 91 Pulse Ox 100 94 98 Oxygen Delivery Method Room Air Room Air Room Air Positive well nourished and well developed General Appearance ED: well developed; Negative for pallor HEENT Reports dry mucous membranes HEENT Narrative: No tongue or lip swelling no oral lesions no airway edema or compromise Mucous membranes are dry and tacky No secondary findings to suggest infection in the posterior pharynx Mouth ED: Yes dry mucous membranes Mouth: dry mucous membranes Eyes PERRL and EOMs intact bilaterally General Eye ED: Negative for scleral icterus Neck supple Neck Narrative: No nuchal rigidity or meningeal sign Resp normal respiratory effort and clear to auscultation bilaterally Cardio regular rhythm Rate: tachycardic and other Other Details: Slightly tachycardic rate with regular rhythm No murmurs rubs or gallop Radial and carotid pulses are equal and symmetric GI non-tender, non-distended and no masses GI Narrative: Abdomen is soft nontender and nondistended with hyperactive bowel sounds No voluntary guarding or rigidity or pulsatile mass No pain with palpation over McBurney's point Negative Robin sign Auscultation: hyperactive bowel sounds Palpation: soft Extremity normal to inspection Extremity Narrative: No asymmetric edema no pitting edema negative Homans' sign bilaterally Neuro oriented x3, CN's II-XII intact bilaterally and no sensory deficits noted Sensorium / Orientation: alert Motor Exam: strength 5/5 throughout Psych mental status grossly normal Skin no rashes or lesions noted General Skin Exam: Negative for jaundice or pallor MDM MDM MDM Narrative Medical decision making narrative: Patient arrived to the ER tachycardic but otherwise with stable vitals. She had multiple sick contacts at home with similar symptoms. She denied any recent antibiotic use or travel outside the country which would predispose her to C. difficile or infectious diarrhea such as E. coli or Salmonella. Her symptoms are most consistent with a viral stomach infection most likely from [place] virus or rotavirus. In order to rule out acute pancreatitis versus complication versus UTI versus biliary colic or acute cholecystitis I did elect to perform basic laboratory studies. The patient's kidney function is normal going against LEONEL and she has no clinically significant electrolyte abnormality. Liver enzymes are normal going against biliary colic/acute cholecystitis. Patient's white count was elevated at 15.4 but this is most likely demargination and stress response. Her lipase however was slightly elevated at approximately 250. Therefore with her mildly cytosis and elevation to the lipase in order to ensure there is no acute cholecystitis pancreatitis appendicitis or colitis a CT scan with IV contrast will be obtained. CT revealed no signs of acute cholecystitis acute pancreatitis appendicitis intestinal obstruction or colitis/diverticulitis. After receiving IV fluids Zofran Lomotil patient had no further bouts of diarrhea and was able to tolerate an oral challenge without difficulty. Therefore at this time as patient's been rehydrated she does not have LEONEL clinically significant electrolyte abnormalities and is able to tolerate oral fluids she is otherwise safe for discharge History & Record Review Discussion w/independent historian: Patient Lab Data Attestation: I reviewed the patient's lab results. Labs: Laboratory Results - last 24 hr 07/02/24 07/02/24 03:20 03:35 WBC 15.4 H RBC 5.13 Hgb 13.9 Hct 42.7 MCV 83.2 MCH 27.1 MCHC 32.6 RDW Std Deviation 41.5 RDW Coeff of Aston 13.6 Plt Count 290 MPV 10.9 Immature Gran % (Auto) 0.400 Neut % (Auto) 87.1 H Lymph % (Auto) 5.6 L [place] % (Auto) 5.8 Eos % (Auto) 0.8 Baso % (Auto) 0.3 Absolute Neuts (auto) 13.4 H Absolute Lymphs (auto) 0.86 Nucleated RBC % 0 Sodium 140 Potassium 3.8 Chloride 109 H Carbon Dioxide 22.0 Anion Gap 9 BUN 29 H Creatinine 0.90 Estim Creat Clear Calc 119.55 Est GFR (MDRD) Af Amer 99 Est GFR (MDRD) Non-Af 82 BUN/Creatinine Ratio 32.0 H Glucose 125 H Calcium 9.2 Total Bilirubin 0.50 Direct Bilirubin 0.14 AST 16 ALT 25 Alkaline Phosphatase 115 Total Protein 7.9 Albumin 4.2 Globulin 3.7 Lipase 232 H Urine Color Yellow Urine Clarity Clear Urine pH 6.0 Ur Specific [place] 1.020 Urine Protein 30 H Urine Glucose (UA) Normal Urine Ketones 15 H Urine Occult Blood 50 H Urine Nitrite Negative Urine Bilirubin 1 H Urine Urobilinogen 1 H Ur Leukocyte Esterase Negative Urine RBC 0-5 SEEN Urine WBC 0 SEEN Ur Squamous Epith Cells 0-5 SEEN Urine Bacteria 3+ Hyaline Casts 0-5 SEEN Urine Mucus 0 SEEN Urine Test Negative Radiography Diagnostic Testing: Clinical Impression(s) from Imaging Studies Abdomen/Pelvis CT 07/02/24 04:04 IMPRESSION: Significant distal esophageal circumferential wall thickening suggesting esophagitis. L1 vertebral body anterior wedge compression deformity of uncertain chronicity, although new from 2020. Hepatosplenomegaly. Electronically Signed: Graeme Barrios MD at 5:33 EST , Discharge Plan Triage Chief Complaint: Nausea/Vomiting/Diarrhea ED Provider: Fabrizio Remy Dx/Rx/DC Orders Clinical Impression: Nausea vomiting and diarrhea, Dehydration, Anxiety Instructions: Dehydration, ED Gastroenteritis, Viral (Adult) Prescriptions: New ondansetron 4 mg tablet,disintegrating 4 mg PO TID PRN (Reason: nausea and vomiting) Qty: 21 0RF diphenoxylate-atropine [Lomotil] 2.5-0.025 mg tablet 1 tab PO 4X/DAY PRN (Reason: diarrhea) 5 Days Qty: 20 0RF No Action Albuterol Sulfate [Proair Hfa] 8.5 GM Hfa.Aer.Ad 1 inhaler PO PRN PRN (Reason: Asthma) Patient Comments: hydroxyzine HCl 25 mg tablet 25 mg PO Q8H PRN (Reason: anxiety) Stand Alone Forms: ED Work / School Excuse Primary Care Provider: Esdras Hebert Referrals: Esdras Hebert MD [Primary Care Provider] - Activity Restrictions/Additional Instructions: Please keep yourself well-hydrated and use the medications as prescribed to help control symptoms. If you have any further concerns or worsening of symptoms please present to the ER for repeat evaluation Print Language: Uruguayan Disposition Disposition: Home, Self Care
[2024-07-02 03:43] LABS: Mucous, Urine 0 SEEN /hpf (<or=2+); White Blood Cells 0 SEEN /hpf (0-5)
[2024-07-02 03:45] LABS: Color, Urine Yellow (Yellow); Glucose, Dipstick Normal (Normal); Ketone-Dipstick 15 mg/dl (Negative); Leukocyte Esterase-Dipstick Negative /ul (Negative); Nitrite-Dipstick Negative (Negative); Occult Blood-Urine 50 /ul (Negative); Protein-Dipstick 30 mg/dl (Negative); Urine Clarity Clear (Clear); Urine Urobilinogen 1 mg/dl (Normal)
[2024-07-02 03:56] LABS: AST(SGOT) 16 U/L (15-37); Alanine Aminotransfer ALT/SGPT 25 U/L (13-56); Albumin, Serum 4.2 g/dL (3.2-5.0); Alkaline Phosphatase 115 U/L (45-117); Anion Gap 9 (5-15); BUN 29 mg/dL (7-18); Bilirubin, Direct 0.14 mg/dL (0.00-0.30); Calcium,Total 9.2 mg/dL (8.5-10.1); Chloride 109 mmol/L (98-107); EST Glomerular Filtration Rate 82 mL/min (>60); Est Glom Filt Rate - Afr Amer 99 mL/min (>60); Estimated Creatinine Clearance 119.55 ml/min; Globulin 3.7 g/dL (2.2-4.2); Glucose 125 mg/dL (74-106); Lipase 232 U/L (13-75); Potassium 3.8 mmol/L (3.5-5.1); Protein, Total 7.9 g/dL (6.4-8.2); Sodium Level 140 mmol/L (136-145)
[2024-07-02 03:57] LABS: Bacteria 3+ /hpf (None Seen); Red Blood Cells-Urine 0-5 SEEN /hpf (0-5); Squamous Epithelial Cells - UA 0-5 SEEN /hpf (5-10); Urine Bilirubin Dipstick 1 mg/dL (Negative)
[2024-07-02 03:58] LABS: Hyaline Cast 0-5 SEEN /lpf (0-5); Internal QC Validated? YES +Cl - CLEAR BKGD; Pregnancy, Urine Negative Negative; Record Kit Lot#,Urine Preg 872158
[2024-07-02 03:59] VITALS: BP 145/90; PULSE 96; RESP 18; TEMP 36.4; O2SAT 94
--- NOTE | 2024-07-02 04:04 | CT_ITS ---
INDICATION: abd pain with elevated lipase COMPARISON: Abdominal ultrasound 07/30/2022. Chest radiograph 03/24/2021. IV Contrast dosage and agent: 99 cc [id number]-370 IV. A radiation dose optimization technique was used for this scan. RADIATION DOSAGE (If Supplied By Facility): CTDIvol/DLP = ( 14.82 ) / ( 792.21 ) mGy/mGycm FINDINGS: Contrast enhanced serial CT axial images through the abdomen and pelvis with coronal and sagittal reformatted series. PANCREAS: No peripancreatic fat stranding. BOWEL/MESENTERY: No dilated bowel loops. No significant free fluid. No free air. GALLBLADDER: No pericholecystic fat stranding. LIVER/STOMACH: Significant distal esophageal circumferential wall thickening suggesting esophagitis. Hepatomegaly measuring up to 21 cm in the craniocaudal dimension. URINARY COLLECTING SYSTEM/ KIDNEYS: No obstructing ureteral calculus. No significant renal parenchymal abnormality. APPENDIX: Normal caliber appendix. UTERUS/ADNEXA: Unremarkable CT appearance of the uterus and adnexa. SPLEEN: Splenomegaly measuring over 15 cm in the craniocaudal dimension. LUNG BASES: Unremarkable. BONES: L1 vertebral body anterior wedge compression deformity of uncertain chronicity, although new from 2020. CT/Abdomen/Pelvis W IV Cont ONLY IMPRESSION: Significant distal esophageal circumferential wall thickening suggesting esophagitis. L1 vertebral body anterior wedge compression deformity of uncertain chronicity, although new from 2020. Hepatosplenomegaly. Electronically Signed: Graeme Barrios MD at 5:33 EST ,
[2024-07-02 04:48] VITALS: BP 121/76; PULSE 112; RESP 18; TEMP 37.3; O2SAT 98
[2024-07-02 05:48] VITALS: BP 123/79; PULSE 109; RESP 18; TEMP 37.2; O2SAT 98
== END 2024-07-02 05:52 | disposition home or self-care (01) ==
PROVIDERS: Emergency Provider Emergency Medicine; PCP Family Medicine; Visit Provider Emergency Medicine
DX: R11.2 Nausea with vomiting, unspecified (principal); R19.7 Diarrhea, unspecified; F41.9 Anxiety disorder, unspecified; E86.0 Dehydration
CPT/HCPCS: 74177; 80048; 80076; 81001; 81025; 83690; 85025; 96361; 96374; 99283; Q9967; A4216; J2405

== ENCOUNTER → 2024-09-06 | Outpatient (CLI) | payer OTHER, SELFPAY ==
--- NOTE | 2024-09-06 15:07 | MRI_ITS ---
PROCEDURE: MRI lumbar spine without IV contrast REASON FOR EXAM: Pain, compression fracture TECHNIQUE: Multisequence multiplanar MR images of the lumbar spine were obtained without the administration of intravenous contrast. COMPARISON: None. FINDINGS: Mild chronic compression deformity of the superior endplate of L1 with minimal osseous retropulsion of its posterosuperior endplate measuring 2 mm. No bone marrow edema. Remaining vertebral body heights are intact. No marrow replacement. No significant malalignment. Conus medullaris is within normal limits and terminates at L1. No paraspinal mass. L1-2: Minimal posterior disc bulge. No significant spinal stenosis or foraminal narrowing. L2-3: Minimal posterior disc bulge. No significant spinal stenosis or foraminal narrowing. L3-4: Minimal posterior disc bulge. No significant spinal stenosis or foraminal narrowing. L4-5: Posterior disc bulge with superimposed right central disc protrusion and annular fissure. Mild bilateral facet arthrosis. Mild spinal stenosis. Mild bilateral foraminal narrowing. L5-S1: Posterior disc bulge with superimposed central disc protrusion and annular fissure. Mild bilateral facet arthrosis. No significant spinal stenosis. Mild bilateral foraminal narrowing. MRI/Spine Lumbar (Routine) IMPRESSION: 1. Mild chronic compression fracture deformity of L1. No acute osseous abnorma lity. 2. Acquired mild spinal stenosis at L4-5 as above. 3. Acquired mild bilateral foraminal narrowing from L4 through S1. Reading Location: [facility]
== END | disposition home or self-care (01) ==
LOC: MRI 15:05
PROVIDERS: PCP Family Medicine; Referring Provider Nurse Practitioner; Visit Provider Nurse Practitioner
DX: S32.010A Wedge compression fracture of first lumbar vertebra, initial encounter for closed fracture (principal)
CPT/HCPCS: 72148

== ENCOUNTER → 2025-04-15 | Outpatient (CLI) | payer OTHER, SELFPAY ==
[2025-04-15 13:12] LABS: Creatinine, Urine (random) 415.00 mg/dL (28.00-217.00); Protein, Urine (Random) 35.9 mg/dL (0.0-12.0); Protein:Creat Ratio 87 mg/g CRE (0-200)
[2025-04-17 12:08] LABS: Chlamydia By Nucleic Acid AMP Negative (Negative); Gonococcus By Nucleic Acid AMP Negative (Negative)
== END | disposition home or self-care (01) ==
LOC: LABSPEC 12:06
PROVIDERS: PCP Family Medicine; Referring Provider Obstetrics & Gynecology; Visit Provider Obstetrics & Gynecology
DX: O09.90 Supervision of high risk pregnancy, unspecified, unspecified trimester (principal); Z3A.00 Weeks of gestation of pregnancy not specified; Z12.4 Encounter for screening for malignant neoplasm of cervix
CPT/HCPCS: 82570; 84156; 87086; 87088; 87491; 87591; 88175; G0145

== ENCOUNTER → 2025-04-23 | Outpatient (CLI) | payer OTHER, SELFPAY ==
[2025-04-23 12:16] LABS: Hematocrit 40.0 % (37-47); Hemoglobin 13.3 g/dL (12.0-15.0); Immature Granulocytes Count 0.040 X10^3/uL (0.0-0.0); Mean Corp Hgb Conc 33.3 g/dL (32-36); Mean Corpuscular Volume 84.9 fL (81-99); Mean Platelet Vol. 11.4 fl (6.2-12.0); NRBC Flagged by Analyzer 0 % (0-5); Platelet Count 295 K/mm3 (150-450); RBC Distribution Width CV 13.1 % (11.6-14.6); RBC Distribution Width SD 40.9 fl (35.1-43.9); Red Blood Count 4.71 M/mm3 (4.2-5.4); White Blood Count 9.3 K/mm3 (4.4-11.0)
[2025-04-23 13:05] LABS: AST(SGOT) 16 U/L (<=31); Alanine Aminotransfer ALT/SGPT 12 U/L (<=34); Albumin, Serum 4.1 g/dL (3.5-5.0); Alkaline Phosphatase 67 U/L (35-104); Anion Gap 15 (5-15); BUN 10 mg/dL (4-19); BUN/Creat Ratio 15.9 RATIO (10-20); Calcium,Total 9.2 mg/dL (7.6-11.0); Carbon Dioxide 20.1 mmol/L (21.0-32.0); Chloride 101 mmol/L (98-108); Globulin 2.7 g/dL (2.2-4.2); Glucose 108 mg/dL (70-99); HIV Nonreactive (Nonreactive); Hepatitis B Surface Antigen Nonreactive (Nonreactive); Hepatitis C Antibody Nonreactive (Nonreactive); Potassium 3.7 mmol/L (3.3-5.1); Syphilis Antibodies Nonreactive (Nonreactive)
== END | disposition home or self-care (01) ==
PROVIDERS: PCP Family Medicine; Visit Provider Obstetrics & Gynecology
DX: O09.90 Supervision of high risk pregnancy, unspecified, unspecified trimester (principal); Z3A.00 Weeks of gestation of pregnancy not specified
CPT/HCPCS: 36415; 80053; 83036; 85025; 86703; 86762; 86780; 86803; 86850; 86900; 86901; 87340

== ENCOUNTER → 2025-05-13 | Outpatient (CLI) | payer OTHER, SELFPAY | END | disposition home or self-care (01) | PROVIDERS: PCP Family Medicine; Visit Provider Advanced Practice Midwife | DX: Z34.01 Encounter for supervision of normal first pregnancy, first trimester (principal) | CPT/HCPCS: 36415 ==

== ENCOUNTER → 2025-07-03 | Outpatient (CLI) | payer OTHER, SELFPAY ==
--- NOTE | 2025-07-03 15:54 | US_ITS ---
PROCEDURE: OB ANATOMY W/ TRANSVAGINAL 07/03/2025 REASON FOR EXAM: 20WK ANATOMY SCAN TECHNIQUE: Procedure Code: [id number] Modality: US Procedure: OB ANATOMY W/ TRANSVAGINAL FINDINGS Cephalic position with cardiac activity of 144 bpm. Cervix measures 3.9 cm. It is closed. Maximum vertical pocket of 7.4 cm. Placenta is anterior position with grade 0. BPD of 5.2, OFD of the 6.3, HC of 18.2, AC of 60.2, and FL of 3.4 cm corresponding with average gestational age of 20 weeks and 0 days with DARINEL of 11/13/2025. Biometric measurement are within normal limits. Estimated weight of 400g (66 percentile). Visualized anatomy; within normal limits. US/OB Anatomy w/ Transvaginal IMPRESSION: Average sonographic age of 21 weeks and 0 days. DARINEL of 11/13/2025. Biometry results are within normal limits. Visualized anatomy; within no rmal limits. Reading Location: [id number]
== END | disposition home or self-care (01) ==
LOC: US 15:52
PROVIDERS: PCP Family Medicine; Referring Provider Advanced Practice Midwife; Visit Provider Advanced Practice Midwife
DX: Z36.2 Encounter for other antenatal screening follow-up (principal)
CPT/HCPCS: 76805; 76817